=== PATIENT | male | born 1970 | race Caucasian/White ===

== ENCOUNTER 2019-10-27 19:34 | Inpatient (IN) ==
[2019-10-27] MEDS ORDERED: NS 1,000 ML IV PRN (19:52)
[2019-10-27 20:20] LABS: INR 1.11; PROTIME 14.5 Seconds (11.0-16.0)
[2019-10-27 20:21] LABS: PTT 24.8 Seconds (22.3-41.8)
--- NOTE | 2019-10-27 20:22 | Diag Imaging Result Doc PS360 ---
EXAM: CT HEAD W/O CONTRAST 10/27/2019 HISTORY: stroke like symptoms TECHNIQUE: This exam was performed using automated exposure control, adjustment of mA or kV according to patient size, and/or use of iterative reconstruction technique. COMMENT: There is no evidence of mass effect, bleed, or abnormal extra-axial fluid collection. The visualized paranasal sinuses are clear. The calvarium is intact. IMPRESSION: No evidence of acute disease. Electronically signed by Mauro Bashir 10/27/2019 8:20 PM
[2019-10-27] MEDS ORDERED: ZOSYN 3.375 GM in NS 50 ML IV ONE (20:24)
--- NOTE | 2019-10-27 20:24 | Diag Imaging Result Doc PS360 ---
EXAM: CHEST-PORTABLE 10/27/2019 HISTORY: stroke like symptoms, SOB, hypoxia TECHNIQUE: AP upright chest COMMENT: There is apparent pleural thickening bilaterally particularly in the apices and lateral chest with increased interstitial markings particularly in the lung bases. There are no previous radiographs available for comparison. The possibility of pulmonary fibrosis is suggested. Superimposed pneumonia or pulmonary edema cannot be excluded. IMPRESSION: Pulmonary and pleural fibrosis. Electronically signed by Mauro Bashir 10/27/2019 8:22 PM
[2019-10-27] MEDS ORDERED: ASPIRIN PO ONE (20:28)
[2019-10-27 20:32] LABS: AGAP 12; ALB/GLOB RATIO 0.7; ALBUMIN 3.4 g/dL (3.5-5.0); ALKALINE PHOSPHATASE 102 U/L (32-122); BUN 10 mg/dL (8-22); CALCIUM 8.9 mg/dL (8.8-10.2); CHLORIDE 100 mmol/L (98-107); COSMO 277; CREATININE 0.7 mg/dL (0.7-1.2); ESTIMATED GFR > 60; GLUCOSE 97 mg/dL (70-104); GOT 39 U/L (10-34); GPT 18 U/L (10-44); POTASSIUM 4.4 mmol/L (3.5-5.1); SODIUM 139 mmol/L (136-145); TCO2 27 mmol/L (25-35); TOTAL BILIRUBIN 0.48 mg/dL (0.20-1.00)
[2019-10-27 20:35] LABS: BASO# 0.16 X1000 (0.0-0.2); BASO% 1.8 % (0.0-0.8); EOS# 0.13 X1000 (0.0-0.7); EOS% 1.4 % (0.0-10.0); HEMATOCRIT 45.6 % (42.0-52.0); HEMOGLOBIN 15.2 g/dL (14.0-18.0); IMM GRAN# 0.19 X1000 (0.0-0.04); IMM GRAN% 2.1 % (0.0-0.5); LYMPH# 1.07 X1000 (1.2-3.4); LYMPH% 11.7 % (20.5-51.1); MCH 27.1 PG (27-31); MCHC 33.3 g/dL (33-37); MCV 81.3 FL (81-99); MONO# 0.86 X1000 (0.11-0.59); MONO% 9.4 % (1.7-9.3); MPV 9.4 FL (7.4-10.4); NEUT# 6.72 X1000 (1.4-6.5); NEUT% 73.6 % (42.2-75.2); PLT 217 X1000 (130-400); RBC 5.61 XMIL (4.7-6.1); RDW 13.1 % (11.5-14.5); WBC 9.13 X1000 (4.8-10.8)
--- NOTE | 2019-10-27 20:46 | PROVIDER DOCUMENTATION ---
This chart was entered by Alma Rosa Wilks Scribe, acting as scribe for Mika Fernandez MD. HPI-Neurological Disorder - General Stated Complaint: right arm weakness Time Seen by Provider: 10/27/19 19:40 Source: patient, EMS - History of Present Illness-Neuro Nature of Presenting Problem: Pt is a 49 yowm brought in by EMS with c/o of right arm weakness, slurred speech and right sided facial droop that happened 1 hour ago and symptoms were resolved on arrival in the ED. EMS also stated that pt's O2 on O2 rebreather at 15ml was 100% but when O2 was removed pt would desat to 80% in less than a minute. Pt st ates he had a recent dx of bronchitis and a round of antibiotics. Pt denies SOB, COPD, diabetes, and HTN. Pt is A&O x3 and nontoxic in appearance. Headache Location: denies: frontal, temporal, occipital, parietal, global, other Severity: reports: moderate Onset/Duration: reports: abrupt, 1 hour ago Timing: reports: resolved prior to arrival Context: reports: impaired speech, facial droop (right side), other (right arm weakness) Any recent trauma/injury?: reports: none Character of Deficits: reports: new weakness, altered sensation, impaired speech New weakness or altered sensation location:: reports: right facial Cognitive Baseline: alert, oriented x3 Gait Baseline: walks without assistance Associated Symptoms: reports: slurred speech. denies: short of breath, h eadache, decreased ability to walk or stand, dizziness, confusion, fever/chills, loss of consciousness, nausea, numbness in legs/feet, diaphoretic, seizures, vision changes Similar Symptoms Previously?: No Recently seen or treated by another doctor?: Yes (recent dx of bronchitis) Review of Systems - Adult - REVIEW OF SYSTEMS - ADULT Constitutional: denies: chills, fever Eyes: reports: no symptoms reported Ears, Nose, Mouth & Throat: reports: no symptoms reported Cardiovascular: denies: chest pain, syncope Respiratory: denies: cough, shortness of breath Gastrointestinal: denies: diarrhea, nausea, vomiting Genitourinary: reports: no symptoms reported Musculoskeletal: reports: muscle weakness (right arm) Integumentary: reports: no symptoms reported Neurological: reports: see HPI, slurred speech, other (right side facial dropp). denies: dizziness/vertigo, headache/migraines Psychiatric: reports: no symptoms reported Endocrine: reports: no symptoms reported Hematologic/Lymphatic: reports: no symptoms reported Allergic/Immunologic: reports: no symptoms reported All Other Systems: Reviewed and Negative Past History - Adult - PAST MEDICAL HISTORY-ADULT Review of Records: reports: Old Records Reviewed, Nursing Assessment Review, Medications Reviewed, Social history reviewed & non-contributory. Major Childhood Illnesses: reports: denies history Cardiovascular: reports: denies history Respiratory: reports: denies history Gastrointestinal: reports: denies history Genitourinary: reports: denies history Musculoskeletal: reports: denies history Neurological: reports: denies history Endocrine/Immune: reports: denies history Other Conditions: reports: denies history - IMMUNIZATION STATUS Childhood Immunizations: See Nurse Assessment Flu Vaccine: See Nurse Assessment - FAMILY HISTORY Family History: reviewed, not pertinent - SOCIAL HISTORY Living Situation: family Physical Exam- Neurological - Physical Exam-Neuro Initial Vital Signs Reviewed: Yes (Resp 25; O2 94, 4L) General Appearance: appears well, alert, thin Eye Exam: bilateral eye: normal inspection, PERRL, EOMI HENMT: normocephalic/atraumatic, moist mucous membranes, normal ENT inspection Head Injury: no evidence of injury Neck: non-tender, full range of motion, supple, normal inspection Respiratory: chest non-tender, lungs clear, normal breath sounds, no pleuratic chest pain, no respiratory distress, no accessory muscle use, other (Pt is maintaing 94% O2 with 4 L nasal canal.) Cardiovascular: normal peripheral pulses, no edema, no gallop, no JVD, no murmur Abdominal Exam: normal bowel sounds, non tender, soft, no organomegaly, no pulsatile mass Lymphatic: no adenopathy Extremity: normal range of motion, non-tender, normal inspection, no pedal edema , no calf tenderness, 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 Exam: normal hearing, normal speech, PERRL Motor/Sensory: no motor deficit, no sensory deficit, no pronator drift Neurologic: grossly normal Integumentary: normal color, normal turgor, warm/dry Psych/Mental Status: normal mood/affect, normal thought content, normal thought process, oriented x 3 - [place]ow Coma Scale Best Eye Response: (4) open spontaneously Best Verbal Response: (5) oriented Best Motor Response: (6) obeys commands Progress - PLAN OF CARE/RESULTS Progress/Plan/Lab Results: Vital Signs - 8 hr 10/27/19 19:49 Temperature 97.8 F Pulse Rate 83 Respiratory Rate 25 H Blood Pressure 122/80 O2 Sat by Pulse Oximetry 93 L Laboratory Results - last 24 hr 10/27/19 10/27/19 10/27/19 19:58 19:58 19:58 WBC 9.13 RBC 5.61 Hgb 15.2 Hct 45.6 MCV 81.3 MCH 27.1 MCHC 33.3 RDW Std Deviation 13.1 Plt Count 217 MPV 9.4 Immature Gran % (Auto) 2.1 H Neut % (Auto) 73.6 Lymph % (Auto) 11.7 L [place] % (Auto) 9.4 H Eos % (Auto) 1.4 Baso % (Auto) 1.8 H Immature Gran # (Auto) 0.19 H Neut # (Auto) 6.72 H Lymph # (Auto) 1.07 L [place] # (Auto) 0.86 H Eos # (Auto) 0.13 Baso # (Auto) 0.16 PT INR PTT (Actin FS) Sodium 139 Potassium 4.4 Chloride 100 Carbon Dioxide 27 Anion Gap 12 BUN 10 Creatinine 0.7 Estimated GFR/1.73 m2 > 60 BUN/Creatinine Ratio 14 Glucose 97 Calculated Osmolality 277 Calcium 8.9 Total Bilirubin 0.48 AST 39 H ALT 18 Alkaline Phosphatase 102 Creatine Kinase Troponin T High Sens 20 H Uzx-M-Jevumrrcywx Pept Total Protein 8.0 Albumin 3.4 L Globulin 4.6 Albumin/Globulin Ratio 0.7 10/27/19 10/27/19 10/27/19 19:58 19:58 19:58 WBC RBC Hgb Hct MCV MCH MCHC RDW Std Deviation Plt Count MPV Immature Gran % (Auto) Neut % (Auto) Lymph % (Auto) [place] % (Auto) Eos % (Auto) Baso % (Auto) Immature Gran # (Auto) Neut # (Auto) Lymph # (Auto) [place] # (Auto) Eos # (Auto) Baso # (Auto) PT 14.5 INR 1.11 PTT (Actin FS) 24.8 Sodium Potassium Chloride Carbon Dioxide Anion Gap BUN Creatinine Estimated GFR/1.73 m2 BUN/Creatinine Ratio Glucose Calculated Osmolality Calcium Total Bilirubin AST ALT Alkaline Phosphatase Creatine Kinase 100 Troponin T High Sens Ucx-X-Ozejwaxzriq Pept 215 H Total Protein Albumin Globulin Albumin/Globulin Ratio Orders Category Date Time Status Cardiac Monitoring DIRECTED Care 10/27/19 19:52 Active Finger Stick Blood Sugar (ED) DIRECTED Care 10/27/19 19:52 Active Misc. NRSG Communication Order DIRECTED Care 10/27/19 19:52 Active NEWS Score >or=5:Order NEWS Bundle S.O. NOW Care 10/27/19 20:21 Active Notify Provider of NEWS Score NOW Care 10/27/19 20:24 Active Oxygen Therapy- ED Nursing DIRECTED Care 10/27/19 19:52 Active Saline Loc NOW Care 10/27/19 19:52 Active CHEST-PORTABLE [RAD] Stat Exams 10/27/19 19:[address] HEAD W/O CONTRAST [CT] Stat Exams 10/27/19 20:05 Completed BLOOD CULTURE [BLDCUL] Stat Lab 10/27/19 21:20 Results BNP [PRO B-NATRIURETIC PEPTIDE] Stat Lab 10/27/19 19:58 Completed CBC WITH ELECTRONIC DIFF [HEME] Stat Lab 10/27/19 19:58 Completed CK PROFILE [SP CHEM] Stat Lab 10/27/19 19:58 Completed COMPREHENSIVE METABOLIC PANEL [CHEM] Stat Lab 10/27/19 19:58 Completed LACTATE, PLASMA [CHEM] Lab 10/27/19 20:36 Ordered LACTATE, PLASMA [CHEM] Lab 10/27/19 23:30 Uncollected LACTATE, PLASMA [CHEM] Lab 10/28/19 02:30 Uncollected PROTIME WITH INR [COAG] Stat Lab 10/27/19 19:58 Completed PTT [COAG] Stat Lab 10/27/19 19:58 Completed TROPONIN T HIGH SENSITIVITY Stat Lab 10/27/19 19:58 Completed URINALYSIS W/POSS RFLX CULT [URINALYSIS] Stat Lab 10/27/19 19:52 Uncollected URINE DRUG SCREEN Stat Lab 10/27/19 19:52 Uncollected 0.9% Sodium Chloride Inj [Ns] 1,000 ml Med 10/27/19 19:52 Active IV 125 mls/hr Aspirin Med 10/27/19 20:28 Discontinued 325 mg PO NOW ONE Piperacillin/Tazobactam [Zosyn] 3.375 gm Med 10/27/19 20:24 Discontinued 0.9% Sodium Chloride Inj [Ns] 50 ml IV NOW EKG [EKG] Stat Ther 10/27/19 19:52 Ordered Pt not given TPA due to symptoms resolving prior to coming to the ER. At recheck, pt is breathing well on 4L nc and sats of 97%. Result Diagrams: 10/27/19 19:58 10/27/19 19:58 - EKG 1 Time of EKG reading by physician:: 21:49 EKG Read and Signed by:: Mika Fernandez EKG Interpretation (*Must complete 3 of following elements*): Abnormal Rate: 77 Rhythm: NSR [place]: normal QRS: normal Comments: Left posterior fascicular block; Inferior infarct, age undetermined - XRAY 1 XRAY Study: Chest Impression: See EMR Report ([facility] - [address] [facility], [address] [place] [id number] [facility] - [address] [place] [address] Department of Imaging Patient: MELVIN LOCKHART Date: 10/27/19MR#: [id number] : 1970ADM Status: PRE ERAcct#: [id number] Age/Sex: 49/MRoom/Bed: Loc: ED Ordering Physician: Mika Barger MD Family Physician: Denice Otero MD Reason for Procedure: stroke like symptoms, SOB, hypoxia ___ Signed EXAM: CHEST-PORTABLE 10/27/2019 HISTORY: stroke like symptoms, SOB, hypoxia TECHNIQUE: AP upright chest COMMENT: There is apparent pleural thickening bilaterally particularly in the apices and lateral chest with increased interstitial markings particularly in the lung bases. There are no previous radiographs available for comparison. The possibility of pulmonary fibrosis is suggested. Superimposed pneumonia or pulmonary edema cannot be excluded. IMPRESSION: Pulmonary and pleural fibrosis. Electronically signed by Mauro Bashir 10/27/2019 8:22 PM 10/27/192021 Interpreting Physician: Mauro Bashir MD Dictated Date/Time: 10/27/192019 cc: Mika Fernandez MD; Denice Otero MD) - CT/MRI 1 CT Study: Head Impression: See EMR Report ([facility] - [address] , [address], [place] [address] [facility] - [address] [place] [address] Department of Imaging Patient: MELVIN LOCKHART Date: 10/27/19#: [id number] : 1970ADM Status: PRE ERAcct#: [id number] Age/Sex: 49/MRoom/Bed: Loc: ED Ordering Physician: Mika Fernandez MD Family Physician: Denice Otero MD Reason for Procedure: stroke like symptoms ___ Signed EXAM: CT HEAD W/O CONTRAST 10/27/2019 HISTORY: stroke like symptoms TECHNIQUE: This exam was performed using automated exposure control, adjustment of mA or kV according to patient size, and/or use of iterative reconstruction technique. COMMENT: There is no evidence of mass effect, bleed, or abnormal extra-axial fluid collection. The visualized paranasal sinuses are clear. The calvarium is intact. IMPRESSION: No evidence of acute disease. Electronically signed by Mauro Bashir 10/27/2019 8:20 PM 10/27/192019 Interpreting Physician: Mauro Bashir MD Dictated Date/Time: 10/27/192019 cc: Mika Fernandez MD; Denice Otero MD) - CONSULTS/PCP/HOSPITALIST Notification #1 *Consult/PCP/Hospitalist*: Dr Way Time Discussed: 20:44 Consult Disposition: Will see in ED, Admit Departure - Departure Date of Disposition Decision: 10/27/19 Time of Disposition Decision: 20:44 DIAGNOSIS: TIA (transient ischemic attack), Pneumonia, Hypoxia, Respiratory distress Disposition: ADMITTED INPATIENT 09 Certified Medical Emergency: Emergent Condition: Serious Referrals and Follow-Ups: Denice Otero MD [Primary Care Provider] - - Critical Care Note This patient required my direct & personal management of CC.: Yes Total Time (mins): 45 Critical Care Statement: This patient required my direct personal management to treat or rule out processes, the absence of which, could potentiallly result in sudden, clinically significant life or limb threatening deterioration. Attestation - Physician/ SANTI Attestation Patient care was provided by Advanced Practice Provider:: No The physician spent face to face time with patient:: Yes Advanced Practice Provider documentation review:: Supervising physician onsite and consulted in the evaluation and care of this patient. The physician did have a face to face encounter with the patient. - NIH Stroke Scale Level of Consciousness: 0-Alert LOC Questions (ask month and age): 0-Answers Both Correctly LOC Commands (ask to open & close eyes;make a fist, let go): 0-Obeys Both Correctly Best Gaze (horizontal eye movement): 0-Normal Visual (use finger movement, counting or visual threat): 0-No Visual Loss Facial Palsy (show teeth or raise eyebrows & close eyes tght: 0-Symmetrical Movement Motor Function-left arm: 0-Normal Motor Function-right arm: 0-Normal Motor Function-left le-Normal Motor Function-right le-Normal Limb Ataxia(wudnno-lrww-fllqad, or heel to rosen): 0-No Ataxia Sensory(pin prick to face,arms,trunk,legs-compare side/side): 0-No Ataxia Best Language(name item/read sentence.Ex-Down to Earth): 0-No Aphasia Dysarthria(Pt read words or say words Ex.Mama,Tip-Top,Thanks: 0-Normal Articulation Extinction and Inattention: 0-Normal Modified [place] Score Criteria: 0-no symptoms This chart was documented by the indicated scribe, (Alma Rosa Wilks, Scribe) and accurately reflects the services I performed and decisions made by me, Mika Fernandez MD, as attested by the provider's signature.
[2019-10-27] MEDS: NS 1,000 ML IV SCH (22:00)
[2019-10-27] MEDS ORDERED: DUONEB (A & A) INH PRN (22:05)
[2019-10-27] MEDS: LEVAQUIN 750 MG/D5W 750 MG/150 ML IVPB IV SCH (22:15)
[2019-10-27 22:54] LABS: URINE SOURCE CLEAN CATCH
[2019-10-27 23:00] LABS: BILIRUBIN URINE NEGATIVE (NEGATIVE); BLOOD URINE NEGATIVE (NEGATIVE); COLOR YELLOW; GLUCOSE URINE NEGATIVE (NEGATIVE); KETONE URINE TRACE mg/dL (NEGATIVE); LEUKOCYTES URINE NEGATIVE (NEGATIVE); NITRITE URINE NEGATIVE (NEGATIVE); PROTEIN URINE 50 mg/dL (NEGATIVE); SP GRAVITY URINE 1.031; TURBIDITY URINE CLEAR (CLEAR); UROBILINOGEN URINE NORMAL (NORMAL)
[2019-10-27 23:04] LABS: UR EPITHELIAL CELLS <10 /HPF (<10); URINE BACTERIA NEGATIVE /HPF; URINE RBC <10 /HPF (<10); URINE WBC <10 /HPF (<10)
[2019-10-27 23:11] LABS: UR AMPHETAMINES QUAL NONE DETECTED (NONE DETECT); UR BARBITUATES QUAL NONE DETECTED (NONE DETECT); UR BENZODIAZEPIN QUAL NONE DETECTED (NONE DETECT); UR CANNABINOIDS QUAL NONE DETECTED (NONE DETECT); UR COCAINE QUAL NONE DETECTED (NONE DETECT); UR METHADONE QUAL NONE DETECTED (NONE DETECT); UR OPIATES QUAL NONE DETECTED (NONE DETECT); UR OXYCODONE QUAL NONE DETECTED (NONE DETECT); UR PCP QUAL NONE DETECTED (NONE DETECT)
[2019-10-27 23:12] LABS: URINE CRYSTALS NONE SEEN
[2019-10-27] MEDS ORDERED: DUONEB (A & A) INH SCH (23:30)
[2019-10-27] MEDS ORDERED: VENTOLIN HFA INH PRN (23:41)
--- NOTE | 2019-10-28 00:13 | EKG Report ---
Test Performed on : 10/27/2019 9:29:41 PM Test Reason : Stroke like symptoms Blood Pressure : / mmHG Vent. Rate : 077 BPM Atrial Rate : 077 BPM P-R Int : 164 ms QRS Dur : 084 ms QT Int : 378 ms P-R-T Axes : 000 156 178 degrees QTc Int : 427 ms Normal sinus rhythm. Left posterior fascicular block Inferior infarct , age undetermined Abnormal ECG No previous ECGs available Unconfirmed Result
[2019-10-28] MEDS: NS 1,000 ML IV SCH ×2 (02:55→14:49)
--- NOTE | 2019-10-28 07:04 | HISTORY AND PHYSICAL ---
CHIEF COMPLAINT: Slurred speech as well as right upper extremity weakness noted prior to admission. HISTORY OF PRESENT ILLNESS: Mr. Milan Jaime is a 49-year-old male who does not have any significant past medical history. The patient presented to the hospital because of sudden onset of slurred speech, as well as weakness involving the right upper extremity, which was noted prior to admission. The patient denies any loss of consciousness, headaches, seizures, or visual blurring. The patient was also noted to be hypoxic prior to admission with an oxygen saturation low in the 70s. The patient required oxygen supplementation. The patient admits to having a cough as well as shortness of breath, which has been ongoing for about three weeks. He denies any hemoptysis. At the time of his presentation, the patient did have a CT scan of the head, which did not reveal any acute findings. An X-ray of his chest showed evidence of pulmonary as well as pleural fibrosis and superimposed pneumonia, although pulmonary edema could not be excluded. The patient has now been admitted to the floor for further management. PAST MEDICAL HISTORY: Unremarkable. SOCIAL HISTORY: No history of cigarette smoking, alcohol, or drug use. ALLERGIES: No known drug allergies. PAST SURGICAL HISTORY: The patient has had surgery to left elbow region. MEDICATIONS: None. FAMILY HISTORY: Unremarkable. REVIEW OF SYSTEMS: Constitutional: No fever. FABRICATOR SPECIAL ITEMS: No headache. Eyes: No blurred vision. ENT: No sinus pressure. Gastrointestinal: He has some diarrhea. Genitourinary: No dysuria. Dermatology: No skin lesions. Hematology: No bleeding problems. Musculoskeletal: No joint pain. Endocrinology: No diabetes or thyroid disease. Psychiatry: No anxiety or depression. Allergy/Immunology: He has symptoms of allergic rhinitis which is seasonal. PHYSICAL EXAMINATION: VITAL SIGNS: Temperature 97.8 degrees, pulse 83, respiratory rate 25, blood pressure 122/80, oxygen saturation is 93%. HEENT: Atraumatic and normocephalic. Anicteric. Extraocular movements intact. No oral lesions noted. NECK: No lymphadenopathy or thyromegaly. CARDIOVASCULAR: S1, S2. RESPIRATORY: Evidence of good entry bilaterally. ABDOMEN: Soft, nontender. No masses felt. EXTREMITIES: No evidence of edema. CENTRAL NERVOUS SYSTEM: The patient is awake, alert, well oriented. Speech is normal. No obvious focal deficits are noted. LABORATORY DATA: WBCs 9.13, hematocrit 45.6, platelet count 217,000, INR 1.11, sodium 139, potassium 4.4, chloride 100, bicarb 27, BUN 10, creatinine 0.7, and AST 39. Troponin 20. ProBNP 215. Urine drug screen is negative. IMAGING STUDIES: Head CT: No evidence of acute changes. Chest x-ray: Shows evidence of pulmonary as well as pleural fibrosis. EKG: Shows a normal sinus rhythm with left posterior fascicular block and inferior infarct, age undetermined. ASSESSMENT AND PLAN: 1. Transient ischemic attack. We will maintain the patient on antiplatelet agent. Recommend MRI as well as MRA of the head, MRA of the neck, and 2D echo of the heart. I recommend PT, OT, speech therapy as well as a swallow evaluation. Check lipid panel as well as hemoglobin A1c level. Start patient on statin, atorvastatin 80 mg p.o. once a day. Recommend stroke education. Maintain patient on telemetry. Maintain patient on Lovenox for DVT prophylaxis. 2. Acute respiratory failure related to pulmonary as well as a pleural fibrosis. Superimposed pneumonia cannot be ruled out. Maintain patient on oxygen supplementation. Obtain sputum culture. Start patient on empiric antibiotics for pneumonia (community-acquired pneumonia). Get a pulmonology consult. 3. Coronavirus Disease 2019. The patient is under investigation. Follow-up COVID-19 test results. 4. Elevated troponin. Maintain patient on telemetry. Follow-up serial cardiac enzymes. 5. Elevated pro-B-type natriuretic peptide level. Check 2D echo of the heart. 6. Abnormal liver function tests. Check hepatitis panel as well as abdominal ultrasound. 7. Deep vein thrombosis prophylaxis with Lovenox. 8. Gastrointestinal prophylaxis with proton pump inhibitor. cc: Ryne Potts MD
[2019-10-28] MEDS ORDERED: LIPITOR PO SCH (09:00)
--- NOTE | 2019-10-28 09:18 | Diag Imaging Result Doc PS360 ---
EXAM: MRA BRAIN W/O CONTRAST HISTORY: tia TECHNIQUE: MR angiography of the brain. MIP images obtained. COMPARISON: None. FINDINGS: Normal flow in each distal internal carotid artery. Normal flow in the basilar artery. Normal flow in the anterior, middle, and posterior cerebral arteries. There is a right-sided posterior communicating artery. No occlusion or stenosis. No aneurysm identified. IMPRESSION: No abnormality. Electronically signed by Adelfo Roldan 10/28/2019 9:16 AM
--- NOTE | 2019-10-28 09:24 | Diag Imaging Result Doc PS360 ---
EXAM: MRI BRAIN W/O CONTRAST HISTORY: tia TECHNIQUE: MRI brain without contrast. Axial, sagittal, and coronal images obtained in multiple sequences. COMPARISON: None. FINDINGS: No recent infarct. No mass or midline shift. No hydrocephalus. No epidural or subdural fluid collection. Normal orbits. No sinus opacification. IMPRESSION: No recent infarct or microvascular ischemic changes. Electronically signed by Adelfo Roldan 10/28/2019 9:22 AM
--- NOTE | 2019-10-28 09:31 | Diag Imaging Result Doc PS360 ---
EXAM: MRA NECK W/O CONT HISTORY: tia TECHNIQUE: MR angiography of the neck. MIP images obtained. COMPARISON: None. FINDINGS: Normal flow within each common carotid artery. Normal flow within each internal carotid artery. Normal flow in the vertebral arteries. The left is larger than the right. IMPRESSION: No occlusion or stenosis. Electronically signed by Adelfo Roldan 10/28/2019 9:28 AM
--- NOTE | 2019-10-28 09:43 | Diag Imaging Result Doc PS360 ---
EXAM: US ABDOMEN-COMPLETE INDICATION: abn lfts COMPARISON: None. FINDINGS: The gallbladder appears normal with no stones, wall thickening, or pericholecystic fluid. The common bile duct is normal in diameter. Sonographic Chance's sign was reported to be negative. The liver is grossly normal in echotexture with no discrete hepatic mass identified. Portal venous flow is hepatopetal. The visualized pancreas is unremarkable. The aorta and IVC are grossly unremarkable. The spleen is unremarkable. The kidneys are grossly unremarkable. IMPRESSION: Essentially unremarkable abdominal ultrasound. Electronically signed by Derik Tim 10/28/2019 9:41 AM
[2019-10-28] MEDS ORDERED: NS 250 ML ONE (09:44)
--- NOTE | 2019-10-28 10:46 | Diag Imaging Result Doc PS360 ---
CT ANGIOGRM PULMONARY ARTERIES - 10/28/2019 INDICATION: elevated d-dimer TECHNIQUE: Axial CT images were obtained after administering intravenous contrast. Coronal MIP images were generated. COMPARISON: None FINDINGS: There is no adenopathy. There is no pulmonary embolism. There is cardiomegaly. There is advanced pulmonary fibrosis. There are multifocal patchy interstitial, groundglass infiltrates throughout the left lung diffusely. Airways are clear. Upper abdominal images are normal. There are moderate degenerative changes of the spine. No acute or suspicious bony lesion. IMPRESSION: 1. Negative for pulmonary embolism. 2. Advanced pulmonary fibrosis. 3. Significant interstitial infiltrate throughout the left lung. This is indeterminate. This could represent inflammatory interstitial lung disease, or viral infection. This exam was performed using automated exposure control, adjustment of mA or kV according to patient size, and/or use of iterative reconstruction technique Electronically signed by Anjum Lake 10/28/2019 10:44 AM
[2019-10-28] MEDS: PRILOSEC PO SCH (14:18)
[2019-10-28] MEDS: LOVENOX SUBQ SCH (14:18)
[2019-10-28] MEDS: ASPIRIN PO SCH (14:18)
[2019-10-28] MEDS: LIPITOR PO SCH (14:18)
--- NOTE | 2019-10-28 14:21 | PULMONOLOGY CONSULTATION ---
DATE: 10/28/2019 REQUESTING PROVIDER: Dr. Ryne Potts. REASON FOR CONSULTATION: Pulmonary and pleural fibrosis. HISTORY OF PRESENT ILLNESS: This is a 49-year-old, male with no significant medical history. He presented to the ER last night via EMS with sudden onset of right arm weakness, slurred speech, and right-sided facial droop, which apparently were resolved after patient arrived to the ER. However, on the way to the ER, the patient was found desaturated. He was put on non- rebreather 100%. And once the mask was removed, the patient desaturated at 80%. Initial chest x-ray showed pulmonary and pleural fibrosis with possible superimposed pneumonia or pulmonary edema. Initial blood work showed elevated D-dimer, so a CT angiogram pulmonary arterials was performed, which revealed negative for pulmonary embolism with advanced pulmonary fibrosis and significant interstitial infiltrate throughout the left lung, which is in indeterminant and could represent inflammatory interstitial lung disease or viral infection. The patient has been admitted to the medical floor with antibiotic Levaquin started since admission, and COVID-19 was tested. The patient currently is lying in bed with no acute distress noted. He is on nasal cannula at 4 L, and tolerates well. He does have some dry cough occasionally during my encounter. He complains of shortness of breath with activities for a few weeks, which was worse last week and actually improved some this week. He reports nonsignificant cough. He has no chest pain, wheezing, palpitations, nausea, fever, chills, bowel habit change, urination discomfort, pedal edema, orthopnea, or paroxysmal nocturnal dyspnea. He denies any sick contact recently as he has been off work for 2 weeks. He states he has been diagnosed with bronchitis recently, and was treated with a round of antibiotic. PAST MEDICAL HISTORY: Recent bronchitis treated with a round of antibiotics, otherwise nonsignificant. SOCIAL HISTORY: The patient quit smoking 9 years ago. He used to smoke 1 pack per day for over 20 years. He has no history of alcohol or illicit drug use. He works for [employer], and has been off 2 weeks since the COVID-19 pandemic. He denies any history of chemical or chronic dust exposure. FAMILY HISTORY: The patient's mother was diagnosed with pulmonary cystic fibrosis in 2006. Later, she underwent lung transplant in [place] and 2 weeks later she from complications. Her sister was genetically tested negative before, but he is never tested. ALLERGIES: No known drug allergies. REVIEW OF SYSTEMS: A 10-point review of systems was conducted, and the pertinent is listed within the HPI. Otherwise, noncontributory. PHYSICAL EXAMINATION: Vital Signs: Temperature 97.8 degrees, blood pressure 111/67, pulse 72, respiratory rate 24, and oxygen saturation 93% on nasal cannula at 4 L. General: Pleasant and cooperative, chronically ill appearing lying in bed with mild tachypnea but, no increased work of breathing. The patient has some mild dry cough occasionally during my encounter. HEENT: Atraumatic, normocephalic. Trachea midline. Mucosa pink and moist. Oropharyngeal clear. Pupils equal, round, and reactive to light. Respiratory: Mild tachypnea. No increased work of breathing or accessory muscle use noted. Symmetrical excursion. Auscultation revealed mild inspiratory crackles bilaterally, worse in the right upper lobe with crepitus palpitated on the right upper lobe. Cardiovascular: Regular rate and rhythm with S1, S2 appreciated. Gastrointestinal: Soft, nontender, and nondistended. Normoactive bowel sounds in all 4 quadrants. Extremities: No pedal edema. No cyanosis. No clubbing. Dorsalis pedis 2+ bilaterally. Neurologic: Alert and oriented x3. Speech fluent. Follows commands. No facial droop noted. No extremity weakness noted. LABORATORY DATA: Troponin T high sensitivity 20, creatine kinase 87, and plasma lactate 1.3. IMAGING DATA: See HPI for CT angiogram, pulmonary arterials. ASSESSMENT: This is a 49-year-old male with a recently diagnosed bronchitis. He has been admitted to the medical floor since yesterday with transient ischemic attack, acute respiratory failure related to pulmonary and pleural fibrosis. 1. Acute respiratory fibrosis, improving. The patient initially required a non- rebreather 100%, and currently he is on nasal cannula at 4 L with oxygen saturation in the low 90s. 2. Advanced pulmonary fibrosis with significant interstitial infiltrates throughout the left lung, which could represent inflammatory interstitial lung disease or viral infection. COVID- 19 has been tested, and the results are pending. Empiric antibiotic Levaquin has been started since admission. The patient does have a family history of pulmonary cystic fibrosis from his mother's side. 3. Transient ischemic attack. The patient initially presented with right upper extremity weakness, slurred speech, and right-sided facial droop, which apparently have been resolved after the patient arrived to the ER. PLAN: 1. Continue supplemental oxygen as needed. We will follow up ABG tomorrow. 2. Antibiotic Levaquin has been started. We will follow up with the results of sputum culture and COVID-19. Blood culture has been started yesterday, but so far nothing grows. 3. Ventolin has been initiated. The patient was initially put on DuoNeb by considering of suspected COVID-19, DuoNeb has been discontinued since last night. 4. Continue GI prophylaxis with Prilosec and DVT prophylaxis with Lovenox. 5. We are ordering genetic test for cystic fibrosis at this time. 6. Further recommendations pending hospital course. Thank you for the courtesy of this consult. Dr. Mosquera did the examination, evaluation, management, and orders. DENISA did the dictation for Dr. Mosquera according to his direction. Dictated by DENISA Gamble for Horacio Mosquera MD cc: DENISA Gamble MD [facility]
--- NOTE | 2019-10-28 16:22 | Extremity Venous Study ---
PROCEDURE NAME: Venous U/S Bilateral Legs - 10/28/2019 REQUESTING PHYSICIAN: Dr. Potts READING PHYSICIAN: Hayder Oneal MD RIBBING MACHINE OPERATOR: Lázaro INDICATION: Elevated D-dimer. FINDINGS: The deep and superficial veins were imaged in both lower extremities. They are compressible, patent and without thrombus. INTERPRETATION: No DVT or SVT in either lower extremity. cc: MD Ryne Nuñez MD
--- NOTE | 2019-10-28 19:58 | PROGRESS NOTE ---
DATE: 10/28/2019 INTERVAL HISTORY: No acute events overnight. SUBJECTIVE: Mr. Jaime is feeling significantly better, denies any more weakness. His swallowing has significantly improved. He denies known history of diagnosed with cystic fibrosis but family history mother is positive for cystic fibrosis. VITALS: Temperature 97.5 degrees, pulse 70, respiratory 20, blood pressure 117/74 saturating 96% 2 L nasal cannula. PHYSICAL EXAMINATION: Not in acute distress, oral cavity is moist. He has decreased air entry with inspiratory crackles infrascapular region. S1, S2 normal, no murmur, gallop.Abdomen: Soft, nontender. No lower extremity edema. He is alert, oriented x3. No obvious facial droop. Pupils are bilaterally equal reacting to light. Extraocular movements is intact. No facial droop. Shoulder shrug is normal. Sensation bilateral face, upper and lower extremity normal. Power is 5 in 5 bilateral upper and lower extremity. Shoulder shrug is normal. LABS: Suggestive of troponin showing flat trend. Brain MRI had no recent infarct. Brain MRA did not have any stenosis. Pulmonary arteriogram did not have any pulmonary embolism. Extremity venous study did not have any DVT. ASSESSMENT AND PLAN: 1. Acute hypoxic respiratory failure due to predominantly left lung multifocal pneumonia. 2. 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 3. Suspicion of multifocal left lower lung pneumonia versus Coronavirus Disease 2019. 4. Transient ischemic attack . PLAN: 1. Continue aspirin, atorvastatin and intravenous levofloxacin. 2. Continue oxygen to maintain saturation more than 94%. Follow COVID-19 testing. 3. Appreciate Pulmonology recommendation. Plan of care discussed with patient, his questions been answered. cc: Howard Schulte MD
[2019-10-28] MEDS: LEVAQUIN 750 MG/D5W 750 MG/150 ML IVPB IV SCH (22:45)
--- NOTE | 2019-10-29 00:20 | ECHO REPORT ---
ORDER DATE: 10/28/2019 MEASUREMENTS: 1. Septal thickness 0.9 2. Left ventricular internal diameter in diastole 4.8 3. Posterior wall thickness 0.7 4. Left ventricular internal diameter in systole 3.1 5. Aortic root 3.2 6. Left atrium 3.4. SUMMARY: 1. Fair quality study. 2. Aortic valve is trileaflet and opens normally on 2-dimensional images. Mitral, tricuspid, and pulmonic valves are without evidence of structural abnormality with very mild mitral regurgitation, very mild tricuspid regurgitation, and trace pulmonic insufficiency. The estimated systolic PA pressure by Doppler is 45 mmHg, suggesting mild pulmonary hypertension. Aortic root is normal in size. 3. Normal left ventricular dimensions demonstrated. The estimated left ejection fraction appears to be at least 55%. No regional wall motion abnormality is evident. Left atrium, right atrium, right ventricle are normal in size with grossly preserved right ventricular systolic function. 4. No pericardial effusion. 5. Inferior vena cava not well demonstrated with subcostal views technically difficult. CONCLUSIONS: 1. Very mild mitral regurgitation. 2. Very mild tricuspid regurgitation with mild pulmonary hypertension by Doppler. 3. Estimated left ventricular ejection fraction at least 55%. 4. If clinically indicated, consider intravenous agitated saline contrast study to screen for [id number] intracardiac shunting in this 49-year-old patient with suspected transient ischemic attack. cc: MD Ryne Palacios MD
[2019-10-29] MEDS: PRILOSEC PO SCH ×2 (05:57→06:22)
[2019-10-29 06:06] LABS: ALLEN TEST YES; BE 0.5 mmoll (-3.0-3.0); BLOOD TYPE ARTERIAL; HCO3-(ACT) 25.2 mmoll (20.0-26.0); METHB 1.2 % (0.0-1.5); O2(CT) 19.3 mL/dL (15.0-23.0); O2HB 93.3 % (95.0-99.0); PCO2(98.6) 37 mmHg (35-45); PO2(98.6) 71 mmHg (60-100); SAMPLE BLOOD; THB 14.7 g/dL (11.5-17.4); pH(98.6) 7.43 (7.35-7.45)
[2019-10-29 06:07] LABS: MODALITY CANNULA
[2019-10-29 06:52] LABS: HEMOGLOBIN A1C 5.7 % (4.8-6.0)
[2019-10-29] MEDS: LOVENOX SUBQ SCH (12:14)
[2019-10-29] MEDS: LIPITOR PO SCH (12:14)
[2019-10-29] MEDS: ASPIRIN PO SCH (12:16)
[2019-10-29] MEDS ORDERED: DUONEB (A & A) INH PRN (17:32)
--- NOTE | 2019-10-29 18:11 | PROVIDER PROGRESS NOTE ---
Progress Note Dr. Mosquera Progress Note/Pulmonary and or critical care Subjective: The patient is lying in bed on NC 3L. He states he is feeling some better. He still has SOB with activities. Objective: Vital Signs: T 97.8 (no fever in last 24 hours), DE 70, RR 24, BP 114/72 and SaO2 92% on NC 3L. Physical Examination: General: Pleasant and cooperative. Chronically ill appearing. Lying in bed with no acute distress noted. HEENT: Normocephalic. Atraumatic. Trachea midline. Mucosa pink and moist. Oropharynx clear. PERRL. Chest: Mild tachypnea. No increased work of breathing or accessory muscle use noted. Symmetrical excursion. Auscultation reveals inspiratory crackles bibasilarly. CVS: S1 and S2 appreciated. Abdomen: Soft. Non-tender. Non-distended. Bowel sounds present in all 4 quadrants. Extremities: No pedal edema. No cyanosis. No clubbing. Neuro: Alert and oriented x 3. Answer simple questions. Follow simple commands. Labs and Radiology: Laboratory Results 10/28/19 10/28/19 10/28/19 01:32 22:40 22:40 Specimen Type Sample Site pH pCO2 pO2 HCO3 Base Excess Oxyhemoglobin ABG O2 Sat (Calculated) ABG O2 Saturation ABG Carboxyhemoglobin ABG Methemoglobin Jhonathan Test A-a O2 Difference Total Hemoglobin Lactate Liter Flow Blood Gas Modality FiO2 % Estimat Average Glucose Hemoglobin A1c Creatine Kinase 74 Troponin T High Sens 20 H Triglycerides Cholesterol LDL Cholesterol Direct VLDL Cholesterol, Calc HDL Cholesterol Coronary Risk Interp Coronavirus (PCR) SEE COMMENTS 10/29/19 10/29/19 10/29/19 05:50 06:15 06:15 Specimen Type ARTERIAL Sample Site R RADIAL pH 7.43 pCO2 37 pO2 71 HCO3 25.2 Base Excess 0.5 Oxyhemoglobin 93.3 L ABG O2 Sat (Calculated) 19.3 ABG O2 Saturation 96.0 ABG Carboxyhemoglobin 1.60 ABG Methemoglobin 1.2 Jhonathan Test YES A-a O2 Difference 111.0 Total Hemoglobin 14.7 Lactate 0.80 Liter Flow 3.0 Blood Gas Modality CANNULA FiO2 % 32.0 Estimat Average Glucose 117 Hemoglobin A1c 5.7 Creatine Kinase Troponin T High Sens Triglycerides 76 Cholesterol 96 LDL Cholesterol Direct 53 VLDL Cholesterol, Calc 15 HDL Cholesterol 37 Coronary Risk Interp 3.00 Coronavirus (PCR) Assessment: Acute respiratory failure. Improving. ABG on NC 3L is nonsignificant this morning with pO2 71. Advanced pulmonary fibrosis with significant interstitial infiltrates throughout the left lung, which could represent inflammatory interstitial lung disease or viral infection. COVID-19 test on 10/28/19 is negative. The patient does have a family history of pulmonary fibrosis from his mothers side. The cystic fibrosis mutation panel has been ordered. Transient ischemic attack. Plan: Continue supplemental oxygen as needed with weaning as tolerated. Continue antibiotic Levaquin. We will follow up CBC and CMP tomorrow. Continue bronchodilators. As COVID-19 is negative, we are switching Ventolin to DuoNeb q4h. We will follow up the results of the cystic fibrosis mutation panel. Continue GI and DVT prophylaxis. I discussed patient's condition and care plan with patient's sister on phone. All questions have been answered.
--- NOTE | 2019-10-29 18:21 | PROGRESS NOTE ---
DATE: 10/29/2019 INTERVAL HISTORY: No acute events overnight. Mr. Jaime continued to need oxygen. SUBJECTIVE: He is feeling better. However, he does complain of shortness of breath on minimal physical exertion. I also talked with his sister on the phone. We discussed about his pending COVID results. We discussed about his pneumonia. We also discussed about pulmonary fibrosis with some cysts. I was informed that his mother had pulmonary fibrosis, though it was not cystic fibrosis. VITALS: Currently temperature 97.4 degrees, pulse 78, respiratory rate 22, blood pressure acceptable, saturating 93% on 3 L nasal cannula. PHYSICAL EXAMINATION: Mr. Jaime does not appear in acute distress. Oral cavity is moist. He has diffuse crackles on both lung dietz, more coarse on the right side than on the left side. No wheezes or rhonchi. S1, S2 normal. No murmur, rub, or gallop. Abdomen is soft, nontender. No lower extremity edema. He was able to raise both upper and lower extremities above ground level. He is alert and oriented x3. LABS: No CBC today. ABG is suggestive of PO2 of 71 on 3 L nasal cannula. His lipid panel had LDL of 53 and cholesterol of 196. [place] virus screen just came back which is negative. No positive microbiological data. Flu swab has been ordered. Extremity venous study did not have any DVT. ASSESSMENT AND PLAN: 1. Acute hypoxic respiratory failure due to left lung multifocal pneumonia. Continue intravenous levofloxacin. He has not been able to make sputum. I will also get influenza screen. Once influenza screen is negative, only after that I would consider taking him off isolation precautions. 2. Diffuse lung fibrosis. Cystic fibrosis testing has been sent out. He had about a 20 pack- year smoking history and his mother had pulmonary fibrosis. He would likely need prolonged outpatient management and diagnostic workup. 3. Transient ischemic attack on presentation, now resolved. Brain MRI and MRA did not have any acute cerebrovascular accident. He currently has a nonfocal examination. I will keep him on aspirin and atorvastatin. DISPOSITION: I am awaiting resolution of his pneumonia or at least improvement, and I will consider following up with x-ray of his chest tomorrow. X-ray of chest in future to see his progression. Plan of care discussed with him. I also had a detailed discussion about his medical condition with his sister on the phone. I allowed her to ask questions. All of her questions have been answered. cc: Howard Schulte MD MTDD
[2019-10-29] MEDS: DUONEB (A & A) INH SCH (20:15)
[2019-10-29] MEDS: LEVAQUIN 750 MG/D5W 750 MG/150 ML IVPB IV SCH (22:45)
[2019-10-30] MEDS: DUONEB (A & A) INH SCH ×6 (05:35→23:20)
[2019-10-30] MEDS: PRILOSEC PO SCH (06:50)
[2019-10-30 07:45] LABS: BASO# 0.09 X1000 (0.0-0.2); BASO% 0.9 % (0.0-0.8); EOS# 0.42 X1000 (0.0-0.7); EOS% 4.2 % (0.0-10.0); HEMATOCRIT 43.9 % (42.0-52.0); HEMOGLOBIN 14.4 g/dL (14.0-18.0); IMM GRAN# 0.18 X1000 (0.0-0.04); IMM GRAN% 1.8 % (0.0-0.5); LYMPH# 1.24 X1000 (1.2-3.4); LYMPH% 12.4 % (20.5-51.1); MCHC 32.8 g/dL (33-37); MCV 82.2 FL (81-99); MONO# 0.95 X1000 (0.11-0.59); MONO% 9.5 % (1.7-9.3); MPV 9.2 FL (7.4-10.4); NEUT# 7.16 X1000 (1.4-6.5); NEUT% 71.2 % (42.2-75.2); PLT 237 X1000 (130-400); RBC 5.34 XMIL (4.7-6.1); WBC 10.04 X1000 (4.8-10.8)
[2019-10-30 08:14] LABS: AGAP 12; ALB/GLOB RATIO 0.6; ALKALINE PHOSPHATASE 92 U/L (32-122); BUN 8 mg/dL (8-22); CALCIUM 9.5 mg/dL (8.8-10.2); CHLORIDE 101 mmol/L (98-107); COSMO 273; CREATININE 0.7 mg/dL (0.7-1.2); ESTIMATED GFR > 60; GLUCOSE 88 mg/dL (70-104); GOT 32 U/L (10-34); GPT 18 U/L (10-44); POTASSIUM 4.4 mmol/L (3.5-5.1); SODIUM 138 mmol/L (136-145); TCO2 25 mmol/L (25-35); TOTAL PROTEIN 8.4 g/dL (6.3-8.3)
[2019-10-30] MEDS: LOVENOX SUBQ SCH (09:17)
[2019-10-30] MEDS: LIPITOR PO SCH (09:17)
[2019-10-30] MEDS: ASPIRIN PO SCH (09:17)
--- NOTE | 2019-10-30 09:44 | Diag Imaging Result Doc PS360 ---
EXAM: CHEST-1 VIEW HISTORY: fibrosis with possible pneumonia TECHNIQUE: Single view COMPARISON: 10/27/2019 FINDINGS: Poor inspiratory effort. There are increased interstitial markings in the lungs. These are more prominent than on the prior study. Questionable tiny effusions. IMPRESSION: Fibrosis with infiltrates. Interval worsening. Electronically signed by Adelfo Roldan 10/30/2019 9:42 AM
[2019-10-30 13:31] LABS: HEPATITIS PROFILE ACUTE SEE COMMENTS
--- NOTE | 2019-10-30 17:36 | PROVIDER PROGRESS NOTE ---
Progress Note Dr. Mosquera Progress Note/Pulmonary and or critical care Subjective: The patient is lying in bed on NC 3L. He states he is feeling better and the nebulizer does help hisbreathing some. He still has SOB when he gets out of the bed. He still has occasional dry cough. Objective: Vital Signs: T 97.9 (no fever in last 24 hours), HI 67, RR 17, BP 119/75 and SaO2 97% on NC 3L. Physical Examination: General: Pleasant and cooperative. Chronically ill appearing. Lying in bed with no acute distress noted. HEENT: Normocephalic. Atraumatic. Trachea midline. Mucosa pink and moist. Oropharynx clear. PERRL. Chest: Even and unlabored. No increased work of breathing or accessory muscle use noted. Symmetrical excursion. Auscultation reveals dry inspiratory crackles bilaterally anteriorly and posteriorly. CVS: S1 and S2 appreciated. Abdomen: Soft. Non-tender. Non-distended. Bowel sounds present in all 4 quadrants. Extremities: No pedal edema. No cyanosis. Clubbing noted. Neuro: Alert and oriented x 3. Answer simple questions. Follow simple commands. Labs and Radiology: Laboratory Results 10/29/19 10/30/19 10/30/19 06:15 07:15 07:15 WBC 10.04 RBC 5.34 Hgb 14.4 Hct 43.9 MCV 82.2 MCH 27.0 MCHC 32.8 L RDW Std Deviation 13.0 Plt Count 237 MPV 9.2 Immature Gran % (Auto) 1.8 H Neut % (Auto) 71.2 Lymph % (Auto) 12.4 L [place] % (Auto) 9.5 H Eos % (Auto) 4.2 Baso % (Auto) 0.9 H Immature Gran # (Auto) 0.18 H Neut # (Auto) 7.16 H Lymph # (Auto) 1.24 [place] # (Auto) 0.95 H Eos # (Auto) 0.42 Baso # (Auto) 0.09 Sodium 138 Potassium 4.4 Chloride 101 Carbon Dioxide 25 Anion Gap 12 BUN 8 Creatinine 0.7 Estimated GFR/1.73 m2 > 60 BUN/Creatinine Ratio 11 Glucose 88 Calculated Osmolality 273 Calcium 9.5 Total Bilirubin 0.60 AST 32 ALT 18 Alkaline Phosphatase 92 Total Protein 8.4 H Albumin 3.0 L Globulin 5.4 Albumin/Globulin Ratio 0.6 Hepatitis Panel SEE COMMENTS Assessment: Acute respiratory failure. Improving slowly. Advanced pulmonary fibrosis with significant interstitial infiltrates throughout the left lung, which could represent inflammatory interstitial lung disease or viral infection per CTPA on 10/28/19. COVID-19 test on 10/28/19 is negative. The patient actually has a family history of pulmonary fibrosis, but not cystic fibrosis from his mothers side. The cystic fibrosis mutation panel has been ordered. CXR this morning shows fibrosis with infiltrates with interval wo rsening. Transient ischemic attack. Plan: Continue supplemental oxygen as needed with weaning as tolerated. Continue antibiotic Levaquin. Continue bronchodilators. We will follow up the results of the cystic fibrosis mutation panel. Continue GI and DVT prophylaxis. We start incentive spirometer and encourage patient to use it routinely. We encourage patient to start ambulation as tolerated.
[2019-10-30] MEDS ORDERED: LASIX IV ONE (20:26)
--- NOTE | 2019-10-30 20:45 | PROGRESS NOTE ---
DATE: 10/30/2019 INTERVAL HISTORY: No acute events overnight. Mr. Jaime's COVID-19 test returned negative. SUBJECTIVE: Mr. Jaime denies any complaint. He does get short of breath on physical exertion. He denies any chest pain. He is not coughing a lot. OBJECTIVE: Vital signs: Temperature 97.9 degrees, pulse 99, respiratory rate 18, blood pressure 110/70, saturating 95% on 3 L nasal cannula. On physical examination he is not in acute distress, though appears short of breath. Oral cavity is moist. He has inspiratory coarse Velcro crackles, bilateral infrascapular region. S1, S2 normal, tachycardic. No murmur or gallop. Abdomen is soft, nontender. No lower extremity edema. He is alert and oriented x3. Input and output suggests -500 mL today. LABORATORY DATA: Labs suggestive of WBC 10,000, hemoglobin 14.4. His electrolytes are normal. No positive microbiological data. Influenza screen was negative. DIAGNOSTIC DATA: Chest x-ray this morning suggests fibrosis with infiltrate and interval worsening. ASSESSMENT AND PLAN: 1. Acute hypoxic respiratory failure due to left lung multifocal pneumonia. Continue intravenous levofloxacin. His COVID-19 influenza screen has been negative. 2. Diffuse lung fibrosis, pending cystic fibrosis testing. He had [id number] smoking history in the past and mother had pulmonary fibrosis. 3. Transient ischemic attack on presentation, now resolved. Brain MRI, MRA, echocardiogram, and neck MRA was largely unremarkable. 4. Disposition: We will continue to monitor the patient inside the hospital. I will give him a dose of Lasix to see if that helps with his shortness of breath. I will follow up serial CBC and BMP. Appreciate pulmonology team's recommendation. Plan of care discussed with him. His questions been answered. cc: Howard Schulte MD
[2019-10-30] MEDS: LEVAQUIN 750 MG/D5W 750 MG/150 ML IVPB IV SCH (23:00)
[2019-10-31] MEDS: PRILOSEC PO SCH (06:36)
[2019-10-31 07:08] LABS: BASO# 0.12 X1000 (0.0-0.2); BASO% 1.1 % (0.0-0.8); EOS# 0.47 X1000 (0.0-0.7); EOS% 4.3 % (0.0-10.0); HEMATOCRIT 44.5 % (42.0-52.0); HEMOGLOBIN 14.6 g/dL (14.0-18.0); IMM GRAN# 0.23 X1000 (0.0-0.04); IMM GRAN% 2.1 % (0.0-0.5); LYMPH# 1.32 X1000 (1.2-3.4); MCH 26.8 PG (27-31); MCHC 32.8 g/dL (33-37); MCV 81.7 FL (81-99); MONO# 1.15 X1000 (0.11-0.59); MONO% 10.4 % (1.7-9.3); MPV 9.1 FL (7.4-10.4); NEUT# 7.72 X1000 (1.4-6.5); NEUT% 70.1 % (42.2-75.2); PLT 269 X1000 (130-400); RBC 5.45 XMIL (4.7-6.1); WBC 11.01 X1000 (4.8-10.8)
[2019-10-31] MEDS: DUONEB (A & A) INH SCH ×4 (07:47→20:13)
[2019-10-31] MEDS: LIPITOR PO SCH (09:13)
[2019-10-31] MEDS: ASPIRIN PO SCH (09:13)
[2019-10-31] MEDS: LOVENOX SUBQ SCH (09:13)
[2019-10-31] MEDS ORDERED: VANCOMYCIN IV PER PHARMACY MISC SCH (12:45)
--- NOTE | 2019-10-31 13:26 | PROGRESS NOTE ---
DATE: 10/31/2019 INTERVAL HISTORY: He was given intravenous Lasix and he made significant amount of urine. SUBJECTIVE: He is feeling the same at rest. He is feeling better, but on physical exertion, like going to the bathroom, he started becoming short of breath. We discussed about adding a 2nd antibiotic. We discussed about following up with chest x-ray. We also discussed about the need for home oxygen. VITALS: Temperature 98.1 degrees, pulse 84, respiratory rate 19, blood pressure 106/73, saturating 90% on 2 L nasal cannula. PHYSICAL EXAMINATION: General: He is not in any acute distress at rest. He has facial rosacea . No pallor, cyanosis. He has prominent clubbing. No icterus. has oral cavity is moist. Lungs: Air entry appears bilaterally equal. No wheeze or rhonchi. He has crackles bilateral infrascapular region, which appear coarse in nature, Velcro like. Heart: S1, S2 normal. No murmur, rub or gallop. Abdomen: Soft. There was some epigastric tenderness, but I could not see any mass. There was no rebound or rigidity. Extremities: No lower extremity edema. Neurologic: He is alert and oriented x3. Input and output suggest -2 L today. LABS: Suggestive of WBC of 11,000, hemoglobin 14.6, platelet 269. No BMP today. MICROBIOLOGY: No positive microbiological data. IMAGING: No new imaging today. ASSESSMENT AND PLAN: 1. Acute hypoxic respiratory failure due to predominantly left lung multifocal pneumonia. Continue intravenous levofloxacin. I will add intravenous vancomycin considering his persistent shortness of breath, as well as slightly worsening of leukocytosis. His Coronavirus Disease 2019 testing and influenza screen have been negative. He was previously not able to make sputum. I will collect the sputum culture today. 2. Diffuse lung fibrosis pending cystic fibrosis testing. He previously had a 20 pack-year smoking history in the past, which he quit several years ago. His mother had history of pulmonary fibrosis. He has prominent clubbing on examination as well. He denies known history of diabetes or sexual dysfunction. He denies recurrent ear infections or pneumonia in the past. I will appreciate Pulmonology recommendations. 3. Transient ischemic attack on presentation, now resolved. Brain magnetic resonance imaging, magnetic resonance angiogram, echocardiogram, and neck magnetic resonance angiogram was largely unremarkable. There is no evidence of any vasculitis. I will continue him on aspirin and high-dose atorvastatin. DISPOSITION: Monitor patient inside the hospital. Add intravenous vancomycin today. Follow up with chest x-ray tomorrow. He made significant urine output on Lasix. I appreciate Pulmonology recommendations regarding discharge planning as well. cc: Howard Schulte MD
[2019-10-31] MEDS ORDERED: VANCOMYCIN 2,300 MG in NS 500 ML IV ONE (14:00)
--- NOTE | 2019-10-31 18:56 | PULMONOLOGY PROGRESS NOTE ---
DATE: 10/31/2019 SUBJECTIVE: The patient is awake, alert, and conversant. He has a dry cough. He denies sputum production. OBJECTIVE: Vital Signs: The patient has been afebrile for the last 24 hours. Blood pressure 108/72, heart rate 106, respiratory rate 19, oxygen saturation 96% on nasal Venturi mask. HEENT: Pupils are equal and reactive. Oropharynx appears clear. neck: Neck is supple. pulmonary: Chest reveals diffuse bilateral crackles. Cardiac: S1-S2. abdomen: Abdomen is soft. Extremities: Extremities reveal no edema. He does have prominent clubbing in his hands. LABORATORIES: CT scan of the thorax was reviewed. LABORATORIES AND STUDIES: CT scan of the thorax was reviewed. He has ground-glass changes along with more advanced honeycombing. Chemistries: C-reactive protein is elevated at 58. Total protein is elevated at 8.4. D-dimer was elevated at greater than 20 on 10/27/2019. COVID-19 test was negative. IMPRESSION: A 49-year-old with a family history of idiopathic pulmonary fibrosis in a mother who required lung transplantation at the age of 56. The patient has evidence of chronic fibrotic changes on CT scan with honeycombing and has clubbing on exam. He appears to have an acute on chronic exacerbation of pulmonary fibrosis. He has elevation in his C-reactive protein. RECOMMENDATIONS: 1. Initiate steroids with a follow-up C-reactive protein on Sunday. 2. Follow-up inflammatory markers. 3. Check connective tissue profile with both a cascade and an LAVERNE with reflex. 4. Check a serum protein electrophoresis given elevation in total protein level. 5. Continue antibiotics covering both typical and atypical organisms. cc: Aron Okeefe MD
[2019-10-31] MEDS: SOLU-MEDROL IV SCH (21:06)
[2019-10-31] MEDS: LEVAQUIN 750 MG/D5W 750 MG/150 ML IVPB IV SCH ×2 (21:06→21:48)
[2019-11-01] MEDS: VANCOMYCIN 1,700 MG in NS 250 ML IV SCH ×2 (01:58→14:21)
[2019-11-01] MEDS: SOLU-MEDROL IV SCH ×4 (01:59→20:25)
[2019-11-01] MEDS: PRILOSEC PO SCH ×2 (05:37→05:59)
[2019-11-01 06:51] LABS: AGAP 12; BUN 11 mg/dL (8-22); CHLORIDE 99 mmol/L (98-107); COSMO 276; CREATININE 0.6 mg/dL (0.7-1.2); ESTIMATED GFR > 60; GLUCOSE 156 mg/dL (70-104); POTASSIUM 4.7 mmol/L (3.5-5.1); SODIUM 137 mmol/L (136-145); TCO2 26 mmol/L (25-35)
[2019-11-01] MEDS: DUONEB (A & A) INH SCH ×5 (08:19→19:33)
--- NOTE | 2019-11-01 08:46 | Diag Imaging Result Doc PS360 ---
EXAM: CHEST-2 VIEWS 11/01/2019 HISTORY: hypoxia TECHNIQUE: PA and lateral chest COMMENT: There are patchy alveolar opacities bilaterally. There is increased interstitial markings and pleural thickening particularly in the apices. These findings were also present on 10/30/2019 and 10/27/2019. IMPRESSION: Pulmonary and pleural fibrosis. Essentially stable since 10/27/2019. Electronically signed by Mauro Bashir 11/01/2019 8:44 AM
[2019-11-01] MEDS: LIPITOR PO SCH (08:48)
[2019-11-01] MEDS: ASPIRIN PO SCH (08:48)
[2019-11-01] MEDS: LOVENOX SUBQ SCH (08:49)
--- NOTE | 2019-11-01 14:50 | PULMONOLOGY PROGRESS NOTE ---
DATE: 11/01/2019 SUBJECTIVE: The patient is awake and alert. He believes his breathing may have slightly improved. He has been transitioned over to a nasal cannula. OBJECTIVE: Vital Signs: The patient has been afebrile for the last 24 hours. Blood pressure 106/72, heart rate 86, respiratory rate 14, oxygen saturation 97%. HEENT: Pupils are equal and reactive. Oropharynx is clear. Neck: Is supple. Chest: Reveals crackles Bilaterally. Cardiac exam: S1, S2. Abdomen: Is soft. Extremities: Without edema. LABORATORIES: Sodium 137, potassium 4.7, chloride 99, bicarbonate 26, BUN 11, creatinine 0.6. Chest x-ray reveals bilateral interstitial infiltrates without change. IMPRESSION: A 49-year-old with 1. Radiographic exam consistent with pulmonary fibrosis with an acute exacerbation of pneumonitis. 2. Family history of idiopathic pulmonary fibrosis. 3. Hypoxemic respiratory failure. 4. Elevated inflammatory markers. PLAN: 1. Continue current steroid regimen. 2. Follow up D-dimer and C-reactive protein tomorrow. 3. Await serum protein electrophoresis results. 4. Continue antibiotics. cc: Aron Okeefe MD
--- NOTE | 2019-11-01 15:36 | PROGRESS NOTE ---
DATE: 11/01/2019 INTERVAL HISTORY: Mr. Jaime was started on steroids yesterday for possible idiopathic pulmonary fibrosis and pneumonitis. In the morning time, his chest x-ray suggested pulmonary fibrosis without any change. SUBJECTIVE: He denies any new complaints. He denies any shortness of breath at rest, however, on physical exertion, he usually gets short of breath. VITAL SIGNS: Temperature 97.6 degrees, pulse 86, respiratory rate 14, blood pressure 106/72. He is saturating 93% on 6 L nasal cannula at the moment. PHYSICAL EXAMINATION: General: He is not in any acute distress though he does have facial plethora because of rosacea. Lungs: He has inspiratory crackles Velcro-like bilateral infrascapular region. Heart: S1, S2 normal. No murmur or gallop. Abdomen: Soft, nontender. Extremities: No lower extremity edema. He has clubbing. Neurologic: He is alert and oriented x3. Input and output suggest -2 L yesterday, positive 700 mL today. LABORATORY: No CBC today. BMP has BUN 11, creatinine 0.7. MICROBIOLOGY: No new data. He has antinuclear antibody, ANCA, cystic fibrosis panel in the lab. ASSESSMENT AND PLAN: 1. Acute hypoxic respiratory failure due to predominantly left lung multifocal pneumonia on top of advanced pulmonary fibrosis. Follow up antinuclear antibody, ANCA, connective tissue cascade glomerular basement membrane antibody, and LAVERNE. Continue intravenous vancomycin and levofloxacin, intravenous steroids. Continue oxygen to maintain saturation more than 94%. 2. Prominent clubbing and family history of lung fibrosis in mother requiring lung transplantation. The patient did have history of 20 pack year smoking history in the past, which he quit several years ago. He does not have history of exposure to asbestos or exposure to any fumes, chemicals, or dust. 3. Transient ischemic attack on presentation with brain MR imaging, echocardiogram and neck MRA largely unremarkable. There was no evidence of vasculitis. I will continue aspirin and high- dose atorvastatin. DISPOSITION: Continue to monitor patient inside the hospital as we await further workup. Plan of care was discussed with the patient. I talked in detail plan of care with the patient's sister on the phone. I allowed her to asked questions. All of her questions have been answered. cc: Howard Schulte MD
[2019-11-01] MEDS: LEVAQUIN 750 MG/D5W 750 MG/150 ML IVPB IV SCH (21:58)
[2019-11-02] MEDS: DUONEB (A & A) INH SCH ×5 (00:04→19:46)
[2019-11-02] MEDS: VANCOMYCIN 1,700 MG in NS 250 ML IV SCH (03:14)
[2019-11-02] MEDS: SOLU-MEDROL IV SCH ×4 (03:17→21:13)
[2019-11-02] MEDS: PRILOSEC PO SCH (06:16)
[2019-11-02 07:16] LABS: BASO# 0.04 X1000 (0.0-0.2); BASO% 0.3 % (0.0-0.8); EOS# 0.03 X1000 (0.0-0.7); EOS% 0.2 % (0.0-10.0); HEMATOCRIT 41.8 % (42.0-52.0); HEMOGLOBIN 13.5 g/dL (14.0-18.0); IMM GRAN# 0.07 X1000 (0.0-0.04); IMM GRAN% 0.5 % (0.0-0.5); LYMPH# 0.63 X1000 (1.2-3.4); LYMPH% 4.4 % (20.5-51.1); MCH 26.6 PG (27-31); MCHC 32.3 g/dL (33-37); MCV 82.3 FL (81-99); MONO# 0.52 X1000 (0.11-0.59); MONO% 3.7 % (1.7-9.3); MPV 9.5 FL (7.4-10.4); NEUT# 12.89 X1000 (1.4-6.5); NEUT% 90.9 % (42.2-75.2); PLT 274 X1000 (130-400); RBC 5.08 XMIL (4.7-6.1); RDW 12.9 % (11.5-14.5); WBC 14.18 X1000 (4.8-10.8)
[2019-11-02 07:43] LABS: BANDS 4 % (0-1); LYMPHS 2 % (21-51); MONO 2 % (1-9); SEGS 92 % (42-75)
[2019-11-02] MEDS ORDERED: LOPRESSOR IV ONE (09:38)
[2019-11-02] MEDS ORDERED: CARDIZEM IV ONE (09:47)
[2019-11-02] MEDS: LOVENOX SUBQ SCH ×2 (10:07→21:14)
[2019-11-02] MEDS: LIPITOR PO SCH (10:08)
[2019-11-02] MEDS: ASPIRIN PO SCH (10:08)
[2019-11-02 10:29] LABS: AGAP 13; BUN 16 mg/dL (8-22); CALCIUM 8.9 mg/dL (8.8-10.2); CHLORIDE 99 mmol/L (98-107); COSMO 277; CREATININE 0.6 mg/dL (0.7-1.2); ESTIMATED GFR > 60; GLUCOSE 128 mg/dL (70-104); POTASSIUM 4.5 mmol/L (3.5-5.1); SODIUM 137 mmol/L (136-145); TCO2 25 mmol/L (25-35)
[2019-11-02 10:56] LABS: AGAP 11; BUN 16 mg/dL (8-22); CALCIUM 9.1 mg/dL (8.8-10.2); CHLORIDE 101 mmol/L (98-107); COSMO 283; CREATININE 0.7 mg/dL (0.7-1.2); ESTIMATED GFR > 60; GLUCOSE 137 mg/dL (70-104); MAGNESIUM 2.2 mg/dL (1.5-2.7); POTASSIUM 4.5 mmol/L (3.5-5.1); SODIUM 140 mmol/L (136-145); TCO2 28 mmol/L (25-35)
--- NOTE | 2019-11-02 11:06 | PROGRESS NOTE ---
DATE: 11/02/2019 INTERVAL HISTORY: Mr. Jaime went into atrial fibrillation with rapid ventricular response this morning. I received a page from the nursing team that his heart rate was sustaining in 150s and 160s. I ordered a stat EKG. I got an EKG, and then evaluated the patient at bedside. SUBJECTIVE: He denies any chest pain or shortness of breath more than usual. He is complaining of palpitation. He denies nausea, vomiting, or abdominal pain. He denies having experienced atrial fibrillation in the past. Review of system: Negative for chest pain. Positive for shortness of breath on exertion. Negative for nausea, vomiting. Negative for weakness. Medication: Duonebs Solumedrol Vancomycin Levofloxacin Omeprazole OBJECTIVE: Vital Signs: Temperature 97.5 degrees, pulse 102, respiratory rate 18, blood pressure 102/72, he is saturating 97% on 50% Ventimask. General: He is in mild distress. HEENT: Oral cavity is moist. Lungs: Air entry bilaterally equal. No wheeze or rhonchi. He has crackles, bilateral infrascapular region. Cardiovascular: S1, S2 normal. Irregularly irregular. No murmur, rub, or gallop. Abdomen: Soft, nontender. Extremities: Marked clubbing. No lower extremity edema. ASSESSMENT AND PLAN: 1. Acute hypoxic respiratory failure due to predominantly left lung multifocal infiltrate with pulmonary fibrosis. Follow up antinuclear antibody, ANCA, connective tissue cascade, glomerular basement membrane antibody, and inflammatory markers. Continue intravenous vancomycin, levofloxacin, steroids, and oxygen to maintain saturation more than 94%. 2. Family history of pulmonary fibrosis in mother, requiring lung transplantation, and personal history of [id number] smoking, which he quit several years ago. Will continue inhaled bronchodilators. 3. Atrial fibrillation with rapid ventricular response. This is likely in the setting of the use of inhaled bronchodilators, his hypoxic respiratory failure, and acute other medical conditions. I gave him intravenous metoprolol. I will give him intravenous diltiazem, and transfer him to [facility]. He may or may not need diltiazem drip. I increase his enoxaparin dose to every 12 hours. His echocardiogram on 10/28/2019 had ejection fraction of 55% without mitral stenosis. 4. Transient ischemic attack on presentation with negative brain MR imaging. Continue aspirin and high-dose atorvastatin. 5. Disposition. I will continue to monitor the patient in PVC unit. Plan of care discussed with him. His questions have been answered. TIME SPENT: 35 minutes cc: Howard Schulte MD MTDD
[2019-11-02] MEDS: CARDIZEM 100 MG/NS 100 MG/100 ML IVPB IV SCH ×2 (11:08→19:54)
[2019-11-02] MEDS ORDERED: VANCOMYCIN IV SCH (15:00)
[2019-11-02] MEDS ORDERED: NS IV SCH (15:00)
[2019-11-02] MEDS: VANCOMYCIN 1,900 MG in NS 500 ML IV SCH (15:56)
--- NOTE | 2019-11-02 18:38 | EKG Report ---
Test Performed on : 11/02/2019 09:25:02 AM Test Reason : Tachycardia Blood Pressure : / mmHG Vent. Rate : 163 BPM Atrial Rate : 174 BPM P-R Int : 000 ms QRS Dur : 090 ms QT Int : 300 ms P-R-T Axes : 000 031 -66 degrees QTc Int : 494 ms Critical Test Result: High HR Atrial fibrillation. with rapid ventricular response. Cannot rule out Inferior infarct (cited on or before 27-OCT-2019) Abnormal ECG When compared with ECG of 27-OCT-2019 21:29, (Unconfirmed) Atrial fibrillation. has replaced Sinus rhythm. Vent. rate has increased BY 86 BPM Left posterior fascicular block is no longer present ST more depressed in Lateral leads Nonspecific T wave abnormality, worse in Lateral leads Confirmed by Silverio HUERTA, Jhonathan Wallace ([id number]) on 11/03/2019 4:48:09 PM
[2019-11-02] MEDS: LEVAQUIN 750 MG/D5W 750 MG/150 ML IVPB IV SCH (21:14)
--- NOTE | 2019-11-03 02:35 | PULMONOLOGY PROGRESS NOTE ---
DATE: 11/02/2019 INTERIM HISTORY: The patient developed atrial fibrillation with rapid ventricular response after an albuterol treatment. His rate is now controlled. He reports his breathing has marginally improved. OBJECTIVE: Vital Signs: The patient has been afebrile for the last 24 hours. Blood pressure 107/69, heart rate 81, respiratory rate 21, oxygen saturation in 94% on 6 L per nasal cannula. HEENT: Pupils are equal and reactive. Oropharynx appears clear. Neck: Supple. Chest: Reveals crackles bilaterally. Cardiac: S1-S2. Irregular rhythm. Abdomen: Soft. Extremities: Without edema. LABORATORIES: White blood count 14,000, hemoglobin 13.5, platelet count 274,000. C-reactive protein has decreased to 27.11. LAVERNE, ANCA with connective tissue cascade, serum protein electrophoresis, and glomerular basement membrane antibodies are pending. IMPRESSION: A 49-year-old with: 1. CT scan consistent with idiopathic pulmonary fibrosis with possible an acute exacerbation of pneumonitis. 2. Family history of idiopathic pulmonary fibrosis. 3. Atrial fibrillation with rapid ventricular response following beta agonist. 4. Hypoxemic respiratory failure. 5. Elevated inflammatory markers with improvement following steroids. PLAN: 1. Current steroid regimen. 2. Await connective tissue markers and serum protein electrophoresis. Current antibiotics change. cc: Aron Okeefe MD
[2019-11-03] MEDS: VANCOMYCIN 1,900 MG in NS 500 ML IV SCH ×2 (03:43→16:28)
[2019-11-03] MEDS: SOLU-MEDROL IV SCH ×4 (03:43→20:10)
[2019-11-03] MEDS: PRILOSEC PO SCH ×2 (05:45→07:36)
[2019-11-03 06:14] LABS: BASO# 0.01 X1000 (0.0-0.2); BASO% 0.1 % (0.0-0.8); EOS# 0.02 X1000 (0.0-0.7); EOS% 0.1 % (0.0-10.0); HEMATOCRIT 41.2 % (42.0-52.0); HEMOGLOBIN 13.3 g/dL (14.0-18.0); IMM GRAN# 0.06 X1000 (0.0-0.04); IMM GRAN% 0.4 % (0.0-0.5); LYMPH# 0.65 X1000 (1.2-3.4); LYMPH% 4.1 % (20.5-51.1); MCH 26.9 PG (27-31); MCHC 32.3 g/dL (33-37); MCV 83.2 FL (81-99); MONO# 0.62 X1000 (0.11-0.59); MONO% 3.9 % (1.7-9.3); MPV 9.7 FL (7.4-10.4); NEUT# 14.37 X1000 (1.4-6.5); NEUT% 91.4 % (42.2-75.2); PLT 282 X1000 (130-400); RBC 4.95 XMIL (4.7-6.1); RDW 13.1 % (11.5-14.5); WBC 15.73 X1000 (4.8-10.8)
[2019-11-03 06:32] LABS: AGAP 11; BUN 17 mg/dL (8-22); CALCIUM 8.4 mg/dL (8.8-10.2); CHLORIDE 103 mmol/L (98-107); COSMO 282; CREATININE 0.6 mg/dL (0.7-1.2); ESTIMATED GFR > 60; GLUCOSE 110 mg/dL (70-104); POTASSIUM 4.2 mmol/L (3.5-5.1); SODIUM 140 mmol/L (136-145); TCO2 26 mmol/L (25-35)
[2019-11-03] MEDS ORDERED: LASIX IV ONE (08:15)
[2019-11-03] MEDS ORDERED: LASIX PO ONE (08:16)
[2019-11-03] MEDS: LIPITOR PO SCH (08:42)
[2019-11-03] MEDS: ASPIRIN PO SCH (08:43)
--- NOTE | 2019-11-03 09:18 | EKG Report ---
Test Performed on : 11/03/2019 08:10:32 AM Test Reason : Eval; fr heart rhythm Blood Pressure : / mmHG Vent. Rate : 080 BPM Atrial Rate : 086 BPM P-R Int : 000 ms QRS Dur : 096 ms QT Int : 378 ms P-R-T Axes : 000 021 016 degrees QTc Int : 435 ms Atrial fibrillation. Abnormal ECG When compared with ECG of 02-NOV-2019 09:25, (Unconfirmed) Vent. rate has decreased BY [address] no longer depressed in Lateral leads Nonspecific T wave abnormality no longer evident in Lateral leads Confirmed by Silverio HUERTA, Jhonathan Wallace ([id number]) on 11/03/2019 4:48:32 PM
[2019-11-03] MEDS: LOVENOX SUBQ SCH ×3 (09:43→23:39)
[2019-11-03] MEDS: CARDIZEM CD PO SCH (11:32)
[2019-11-03] MEDS ORDERED: AYR NASAL SPRAY NAS PRN (12:10)
[2019-11-03 12:15] LABS: ANTINEUTROPHIL CYTOPLASMIC AB SEE COMMENTS
[2019-11-03] MEDS ORDERED: NS NEB INH SCH (12:15)
[2019-11-03] MEDS ORDERED: ATROVENT NEB INH PRN (12:15)
--- NOTE | 2019-11-03 13:52 | PROGRESS NOTE ---
DATE: 11/03/2019 RECENT HISTORY: Mr. Jaime was transferred to [facility] yesterday for his atrial fibrillation. He did not receive his levalbuterol inhaler since it was thought to be the provoking factor. His oxygen levels were low, and he was started on Venturi mask this morning. He is also getting a dose of Lasix. SUBJECTIVE: Mr. Jaime denies new complaints. He denies chest pain. He is feeling short of breath. He has occasional cough. OBJECTIVE: Vital Signs: Currently, temperature 97.6 degrees, pulse 90, respiratory rate 20, blood pressure 105/86, he is saturating 94% on 6 L nasal cannula. General: He is not in any acute distress. HEENT: Oral cavity is moist. Lungs: Air entry bilaterally equal. No wheeze or rhonchi. He has crackles affecting both of his lungs, especially infrascapular region. Heart: S1, S2 normal. Irregularly irregular. No murmur, rub, or gallop. Abdomen: Soft, nontender. Extremities: No lower extremity edema. Neurologic: He is alert and oriented x3. REVIEW OF SYSTEMS: Positive for shortness of breath. Negative for chest pain. Negative for dizziness. Negative for diarrhea. CURRENT MEDICATIONS: He is on aspirin, atorvastatin, Cardizem, enoxaparin (therapeutic dose), Atrovent, levofloxacin, and vancomycin. MICROBIOLOGY: No new data. IMAGING: No new data. ASSESSMENT AND PLAN: 1. Acute hypoxic respiratory failure due to predominantly left lung multifocal infiltrate with pulmonary fibrosis. His antinuclear antibody, ANCA, connective tissue cascade, glomerular basement membrane antibody are currently in lab. His inflammatory markers are elevated. I will stop intravenous levofloxacin today and intravenous vancomycin tomorrow. Continue intravenous steroids and oxygenation to maintain saturation more than 94% through nasal cannula. 2. New diagnosis of Pulmonary fibrosis this admission with prior history of [id number] smoking, which he quit several years ago, Family history of idiopathic pulmonary fibrosis in mother requiring lung transplantation. His current presentation could be acute flare of idiopathic pulmonary fibrosis. Continue intravenous steroids. Appreciate Pulmonology recommendations. 4. Atrial fibrillation with rapid ventricular response in the setting of hypoxic respiratory failure, as well as inhaled beta-2 agonist. He is not wheezing on examination. I will appreciate Pulmonology recommendations about discontinuing beta-2 agonist and keeping him on inhaled ipratropium only. Currently, his heart rate is well controlled. I will stop intravenous diltiazem drip, and change it to oral diltiazem, and continue therapeutic Lovenox. 5. Transient ischemic attack on admission: Continue aspirin and high-dose statin. 6. Disposition. Continue to monitor the patient inside the hospital as we await stabilization of his oxygen needs and come up with oral steroid regimen. He qualified for home O2. director construction services have been aware of it. I talked to his sister on the phone today. We discussed about stopping antibiotics in near future. Continuing to monitor his oxygen needs and I answered all of her questions. In summary, Mr. Jaime had initially came in with stroke like symptoms. MR imaging of the brain did not detect any CVA. When he was in ER, he was found to have profound hypoxia which triggered further work up. He was then detected to have pulmonary fibrosis which is under investigation. cc: Howard Schulte MD MTDD
--- NOTE | 2019-11-03 15:44 | PROVIDER PROGRESS NOTE ---
Progress Note Dr. Mosquera Progress Note/Pulmonary and or critical care Subjective: The patient is lying in bed on VM 50%. He has mild SOB with increased work of breathing at this time. He is complaining of nasal congestion and difficulty breathing. He blows his nose during my encounter with minimal fresh blood noted on the tissue. His last BM was two days ago, but he denies constipation at this time. Objective: Vital Signs: T 97.8 (no fever in last 24 hours), AR 84, RR 22, BP 112/76 and SaO2 93% on NC 6L. Physical Examination: General: Lying in bed on VM 50% with mild respiratory distress noted. HEENT: Normocephalic. Atraumatic. Trachea midline. Mucosa pink and moist. Oropharynx clear. PERRL. Dry black colored drainage occupied most of the nasal cavity space, especially in the left nasal cavity noted. Nasal mucosa is not visible at this time. Chest: Labored with increased work of breathing, but no accessory muscle use noted. Symmetrical excursion. Auscultation reveals dry inspiratory crackles bibasilarly anteriorly and posteriorly. CVS: Mild tachycardia. S1 and S2 appreciated. Abdomen: Soft. Non-tender. Non-distended. Bowel sounds present in all 4 quadrants. Extremities: No pedal edema. No cyanosis. Clubbing noted. Neuro: Anxious. Alert and oriented x 3. Answer simple questions. Follow simple commands. Labs and Radiology: Laboratory Results 10/31/19 10/31/19 11/01/19 16:27 16:27 06:09 WBC RBC Hgb Hct MCV MCH MCHC RDW Std Deviation Plt Count MPV Immature Gran % (Auto) Neut % (Auto) Lymph % (Auto) [place] % (Auto) Eos % (Auto) Baso % (Auto) Immature Gran # (Auto) Neut # (Auto) Lymph # (Auto) [place] # (Auto) Eos # (Auto) Baso # (Auto) D-Dimer, Quantitative Sodium Potassium Chloride Carbon Dioxide Anion Gap BUN Creatinine Estimated GFR/1.73 m2 BUN/Creatinine Ratio Glucose Calculated Osmolality Calcium C-Reactive Prot, Quant LAVERNE Screen SEE COMMENTS ANCA Vasculitis Panel SEE COMMENTS Glomerular Base Mem IgG SEE COMMENTS 11/03/19 11/03/19 11/03/19 05:02 05:02 05:02 WBC 15.73 H RBC 4.95 Hgb 13.3 L Hct 41.2 L MCV 83.2 MCH 26.9 L MCHC 32.3 L RDW Std Deviation 13.1 Plt Count 282 MPV 9.7 Immature Gran % (Auto) 0.4 Neut % (Auto) 91.4 H Lymph % (Auto) 4.1 L [place] % (Auto) 3.9 Eos % (Auto) 0.1 Baso % (Auto) 0.1 Immature Gran # (Auto) 0.06 H Neut # (Auto) 14.37 H Lymph # (Auto) 0.65 L [place] # (Auto) 0.62 H Eos # (Auto) 0.02 Baso # (Auto) 0.01 D-Dimer, Quantitative Sodium 140 Potassium 4.2 Chloride 103 Carbon Dioxide 26 Anion Gap 11 BUN 17 Creatinine 0.6 L Estimated GFR/1.73 m2 > 60 BUN/Creatinine Ratio 28 Glucose 110 H Calculated Osmolality 282 Calcium 8.4 L C-Reactive Prot, Quant 11.06 H LAVERNE Screen ANCA Vasculitis Panel Glomerular Base Mem IgG 11/03/19 05:02 WBC RBC Hgb Hct MCV MCH MCHC RDW Std Deviation Plt Count MPV Immature Gran % (Auto) Neut % (Auto) Lymph % (Auto) [place] % (Auto) Eos % (Auto) Baso % (Auto) Immature Gran # (Auto) Neut # (Auto) Lymph # (Auto) [place] # (Auto) Eos # (Auto) Baso # (Auto) D-Dimer, Quantitative 3.85 H Sodium Potassium Chloride Carbon Dioxide Anion Gap BUN Creatinine Estimated GFR/1.73 m2 BUN/Creatinine Ratio Glucose Calculated Osmolality Calcium C-Reactive Prot, Quant LAVERNE Screen ANCA Vasculitis Panel Glomerular Base Mem IgG Assessment: Acute respiratory failure. Worsening. Patient is VM 50% with SaO2 in low 90s and complaining of SOB at rest at this time. Possible left lung multifocal pneumonia. Acute exacerbation on advanced pulmonary fibrosis. COVID-19 test on 10/28/19 is negative. The patients mother had pulmonary fibrosis and required lung transplant. He has prominent clubbing. He has history of 20 pack year smoking history in the past. The results of cystic fibrosis mutation panel are pending. The LAVERNE Screen is positive. ANCA Vasculitis panel is negative. And Glomerular Base Membrane IgG is negative. Elevated inflammatory markers. Improving. Transient ischemic attack. Atrial fibrillation with rapid ventricular response. Patient went into atrial fibrillation with rapid ventricular response on Sunday Morning. DuoNeb discontinued. On Cardizem. Plan: Continue supplemental oxygen as needed. We titrated supplemental oxygen to patient's needs per clinical protocol. We will monitor patient's response closely and adjust accordingly. We will check ABG if indicated. Continue antibiotic Levaquin and Vancomycin. We will keep monitoring patient's clinical and lab response closely. Continue Steroid. Currently on IV Solu-Medrol 80 mg Q6H. We follow up the results of the cystic fibrosis mutation panel and the serum protein electrophoresis. Continue GI and DVT prophylaxis. We are initiating Xopenex, which has less cardiac side effects than Albuterol has, with Atrovent at this time. We recommend inpatient PFT when patient's respiratory statue is stable.
[2019-11-03] MEDS: ATROVENT NEB INH SCH ×2 (16:13→22:18)
[2019-11-03] MEDS: LEVAQUIN 750 MG/D5W 750 MG/150 ML IVPB IV SCH ×2 (20:10→23:40)
[2019-11-03] MEDS: XOPENEX NEB INH SCH (22:18)
[2019-11-04] MEDS: SOLU-MEDROL IV SCH ×4 (03:50→21:11)
[2019-11-04] MEDS: VANCOMYCIN 1,900 MG in NS 500 ML IV SCH ×2 (03:50→15:19)
--- NOTE | 2019-11-04 05:24 | EKG Report ---
Test Performed on : 11/04/2019 04:00:31 AM Test Reason : rhythm change Blood Pressure : / mmHG Vent. Rate : 044 BPM Atrial Rate : 044 BPM P-R Int : 172 ms QRS Dur : 100 ms QT Int : 486 ms P-R-T Axes : 043 029 022 degrees QTc Int : 415 ms Critical Test Result: Low HR Marked sinus bradycardia. with premature supraventricular complexes. Nonspecific ST abnormality Abnormal ECG When compared with ECG of 03-NOV-2019 08:10, Sinus rhythm. has replaced Atrial fibrillation. Vent. rate has decreased BY [address] elevation now present in Inferior leads Confirmed by Silverio HUERTA, Jhonathan Wallace ([id number]) on 11/05/2019 9:24:29 AM
[2019-11-04] MEDS: XOPENEX NEB INH SCH ×4 (05:33→21:40)
[2019-11-04 05:42] LABS: BASO# 0.02 X1000 (0.0-0.2); BASO% 0.2 % (0.0-0.8); HEMATOCRIT 42.8 % (42.0-52.0); HEMOGLOBIN 14.1 g/dL (14.0-18.0); IMM GRAN# 0.03 X1000 (0.0-0.04); IMM GRAN% 0.2 % (0.0-0.5); LYMPH# 0.69 X1000 (1.2-3.4); LYMPH% 5.6 % (20.5-51.1); MCH 27.2 PG (27-31); MCHC 32.9 g/dL (33-37); MCV 82.5 FL (81-99); MONO# 0.51 X1000 (0.11-0.59); MONO% 4.1 % (1.7-9.3); MPV 9.2 FL (7.4-10.4); NEUT# 11.12 X1000 (1.4-6.5); NEUT% 89.9 % (42.2-75.2); PLT 250 X1000 (130-400); RBC 5.19 XMIL (4.7-6.1); RDW 12.9 % (11.5-14.5); WBC 12.37 X1000 (4.8-10.8)
[2019-11-04 05:56] LABS: AGAP 7; BUN 18 mg/dL (8-22); CALCIUM 8.3 mg/dL (8.8-10.2); CHLORIDE 102 mmol/L (98-107); COSMO 279; CREATININE 0.6 mg/dL (0.7-1.2); ESTIMATED GFR > 60; GLUCOSE 117 mg/dL (70-104); POTASSIUM 4.3 mmol/L (3.5-5.1); SODIUM 138 mmol/L (136-145); TCO2 29 mmol/L (25-35)
[2019-11-04 06:00] LABS: FREE T4 1.43 ng/dL (0.93-1.70); TSH 0.49 uIUmL (0.27-4.20)
[2019-11-04] MEDS: ATROVENT NEB INH SCH ×4 (06:03→21:40)
[2019-11-04] MEDS: PRILOSEC PO SCH (06:25)
[2019-11-04 06:50] LABS: LYMPHS 6 % (21-51); MONO 2 % (1-9); SEGS 92 % (42-75)
--- NOTE | 2019-11-04 07:05 | Diag Imaging Result Doc PS360 ---
CHEST-1 VIEW - 11/04/2019 INDICATION: SOB COMPARISON: 11/01/2019 FINDINGS: Stable extensive peripheral opacities compatible pulmonary fibrosis. No new infiltrates. Heart size is top normal. IMPRESSION: Advanced pulmonary fibrosis. Electronically signed by Anjum Lake 11/04/2019 7:03 AM
[2019-11-04] MEDS: ASPIRIN PO SCH (08:15)
[2019-11-04] MEDS: LIPITOR PO SCH (08:15)
[2019-11-04] MEDS: CARDIZEM CD PO SCH (08:15)
[2019-11-04] MEDS: LOVENOX SUBQ SCH ×2 (09:15→21:11)
[2019-11-04 10:16] LABS: ALLEN TEST YES; BE 3.2 mmoll (-3.0-3.0); BLOOD TYPE ARTERIAL; HCO3-(ACT) 27.3 mmoll (20.0-26.0); METHB 0.8 % (0.0-1.5); MODALITY NRB; O2(CT) 18.9 mL/dL (15.0-23.0); O2HB 93.2 % (95.0-99.0); PCO2(98.6) 42 mmHg (35-45); PO2(98.6) 66 mmHg (60-100); SAMPLE BLOOD; SAO2 95.6 % (95.0-100.0); THB 14.4 g/dL (11.5-17.4); pH(98.6) 7.43 (7.35-7.45)
[2019-11-04] MEDS ORDERED: LASIX IV ONE (13:14)
--- NOTE | 2019-11-04 14:57 | PROGRESS NOTE ---
DATE: 11/04/2019 SUBJECTIVE: I have seen and examined Mr. Jaime today. He continues to be remarkably hypoxemic. He is on a nonrebreather, 15 L. He was saturating anywhere between 90 to 92. OBJECTIVE: Vital Signs: Blood pressure is 105/62, pulse of 74, respirations are 18, temperature is 97.1 degrees, patient is saturating 92%. General Examination: Mr. Jaime is a 49-year-old, gentleman. He was in bed, in mild respiratory distress. HEENT: Mucosa is pink. Anicteric. Acyanotic. Neck: Supple. No JVD. Chest: Air entry is bilaterally reduced. There are some fine Velcro crackles in the posterolateral lung dietz. Cardiovascular: Regular rate and rhythm. GI: Abdomen was soft. Extremities: No pedal edema. On the upper extremities, the patient has positive clubbing. SUPERVISOR INSPECTING: The patient is awake, alert, and oriented. Laboratory Data: WBC of 12.37, hemoglobin of 14.1, platelet count of 250,000. Chemistry is also reviewed and is unremarkable. ASSESSMENT: 1. Acute hypoxemic respiratory failure, presumably due to idiopathic pulmonary fibrosis exacerbation. 2. Atrial fibrillation with rapid ventricular response during the hospital course, also responds to beta agonist therapy. 3. History of more than 20 pack-year history with suspicion of underlying smoking lung/chronic obstructive pulmonary disease. 4. Clubbing, most likely due to longstanding interstitial lung disease (idiopathic pulmonary fibrosis). PLAN: In general, I think Mr. Jaime is fairly stable. He continues to be needing a high volume of supplemental oxygen. We are going to continue monitoring him in the hospital. cc: Michael Chavarria MD
[2019-11-04] MEDS ORDERED: BLISTEX MEDICATED BERRY LIP BALM TOP PRN (15:37)
--- NOTE | 2019-11-04 18:07 | PROVIDER PROGRESS NOTE ---
Progress Note Dr. Mosquera Progress Note/Pulmonary and or critical care Subjective: The patient is sitting in bed on NRB 100%. He has mild SOB with increased work of breathing at this time.He complains of SOB at rest. He apparently underwent physical therapy at an earlier time and became desaturated at 70s. Input was appreciated from Dr. Chavarria and other teams on the case. Objective: Vital Signs: T 96.7 (no fever in last 24 hours), HI 74, RR 16, BP 114/71 and SaO2 98% on VM 50%. Physical Examination: General: Sitting in bed on NRB 100% with mild respiratory distress noted. HEENT: Normocephalic. Atraumatic. Trachea midline. Mucosa pink and moist. Oropharynx clear. PERRL. Chest: Labored with increased work of breathing, but no accessory muscle use noted. Symmetrical excursion. Auscultation reveals dry inspiratory crackles bibasilarly anteriorly and posteriorly. CVS: S1 and S2 appreciated. Abdomen: Soft. Non-tender. Non-distended. Bowel sounds present in all 4 quadrants. Extremities: No pedal edema. No cyanosis. Clubbing noted. Neuro: Mildly anxious. Alert and oriented x 3. Answer simple questions. Follow simple commands. Labs and Radiology: Laboratory Results 10/28/19 10/31/19 11/04/19 16:08 16:27 04:56 WBC 12.37 H RBC 5.19 Hgb 14.1 Hct 42.8 MCV 82.5 MCH 27.2 MCHC 32.9 L RDW Std Deviation 12.9 Plt Count 250 MPV 9.2 Immature Gran % (Auto) 0.2 Neut % (Auto) 89.9 H Lymph % (Auto) 5.6 L Amelia % (Auto) 4.1 Eos % (Auto) 0.0 Baso % (Auto) 0.2 Immature Gran # (Auto) 0.03 Neut # (Auto) 11.12 H Lymph # (Auto) 0.69 L Amelia # (Auto) 0.51 Eos # (Auto) 0.00 Baso # (Auto) 0.02 Segmented Neutrophils 92 H Lymphocytes 6 L Monocytes 2 Specimen Type Sample Site pH pCO2 pO2 HCO3 Base Excess Oxyhemoglobin ABG O2 Sat (Calculated) ABG O2 Saturation ABG Carboxyhemoglobin ABG Methemoglobin Jhonathan Test A-a O2 Difference Total Hemoglobin Lactate Liter Flow Blood Gas Modality FiO2 % Sodium Potassium Chloride Carbon Dioxide Anion Gap BUN Creatinine Estimated GFR/1.73 m2 BUN/Creatinine Ratio Glucose Calculated Osmolality Calcium Ddn-K-Lehftdyvuop Pept Prot Electrophoresis SEE COMMENTS TSH Free T4 CF Mutation SEE COMMENTS 11/04/19 11/04/19 11/04/19 04:56 04:56 04:56 WBC RBC Hgb Hct MCV MCH MCHC RDW Std Deviation Plt Count MPV Immature Gran % (Auto) Neut % (Auto) Lymph % (Auto) Amelia % (Auto) Eos % (Auto) Baso % (Auto) Immature Gran # (Auto) Neut # (Auto) Lymph # (Auto) Amelia # (Auto) Eos # (Auto) Baso # (Auto) Segmented Neutrophils Lymphocytes Monocytes Specimen Type Sample Site pH pCO2 pO2 HCO3 Base Excess Oxyhemoglobin ABG O2 Sat (Calculated) ABG O2 Saturation ABG Carboxyhemoglobin ABG Methemoglobin Jhonathan Test A-a O2 Difference Total Hemoglobin Lactate Liter Flow Blood Gas Modality FiO2 % Sodium 138 Potassium 4.3 Chloride 102 Carbon Dioxide 29 Anion Gap 7 BUN 18 Creatinine 0.6 L Estimated GFR/1.73 m2 > 60 BUN/Creatinine Ratio 30 Glucose 117 H Calculated Osmolality 279 Calcium 8.3 L Snk-C-Nxduqccizvo Pept 453 H Prot Electrophoresis TSH 0.49 Free T4 1.43 CF Mutation 11/04/19 10:05 WBC RBC Hgb Hct MCV MCH MCHC RDW Std Deviation Plt Count MPV Immature Gran % (Auto) Neut % (Auto) Lymph % (Auto) Amelia % (Auto) Eos % (Auto) Baso % (Auto) Immature Gran # (Auto) Neut # (Auto) Lymph # (Auto) Amelia # (Auto) Eos # (Auto) Baso # (Auto) Segmented Neutrophils Lymphocytes Monocytes Specimen Type ARTERIAL Sample Site R RADIAL pH 7.43 pCO2 42 pO2 66 HCO3 27.3 H Base Excess 3.2 H Oxyhemoglobin 93.2 L ABG O2 Sat (Calculated) 18.9 ABG O2 Saturation 95.6 ABG Carboxyhemoglobin 1.70 ABG Methemoglobin 0.8 Jhonathan Test YES A-a O2 Difference 595.0 Total Hemoglobin 14.4 Lactate 2.30 H Liter Flow 15.0 Blood Gas Modality NRB FiO2 % 100.0 Sodium Potassium Chloride Carbon Dioxide Anion Gap BUN Creatinine Estimated GFR/1.73 m2 BUN/Creatinine Ratio Glucose Calculated Osmolality Calcium Bnp-J-Tjcsbmvahfp Pept Prot Electrophoresis TSH Free T4 CF Mutation Assessment: Acute respiratory failure. Worsening. paO2 66 on NRB with FiO2 100% this morning. Possible left lung multifocal pneumonia. CXR this morning shows stable advanced pulmonary fibrosis. Acute exacerbation on advanced pulmonary fibrosis. COVID-19 test on 10/28/19 is negative. The patients mother had pulmonary fibrosis and required lung transplant. He has prominent clubbing. He has history of 20 pack year smoking history in the past. The results of cystic fibrosis mutation panel are pending. The LAVERNE Screen is positive. ANCA Vasculitis panel is negative. Glomerular Base Membrane IgG is negative. Serum protein electrophoresis shows high Alpha 1, Alpha 2, Beta and Gamma (including elevated IgA and IgG). Elevated inflammatory markers. Transient ischemic attack. Atrial fibrillation with rapid ventricular response. Patient went into atrial fibrillation with rapid ventricular response on 11/02/19. On Cardizem. Plan: Continue supplemental oxygen as needed. We titrated supplemental oxygen to patient's needs per clinical protocol. We will monitor patient's response closely and adjust accordingly. We will check ABG tomorrow. We are ordering to transfer the patient to ICU at this time for closely monitoring as patient's respiratory status has been continuously declinedin last several days. we are giving Lasix 60 mg once at this time. We are checking proBNP today and tomorrow morning. Continue antibiotic Vancomycin. Levaquin was discontinued on 11/03/19. We will keep monitoring patient's clinical and lab response closely. Continue Steroid. Currently on IV Solu-Medrol 80 mg Q6H. We follow up the results of the cystic fibrosis mutation panel. Continue GI and DVT prophylaxis. Continue bronchodilators including Xopenex and Atrovent. We are planning inpatient PFT when patient's respiratory statuebecomes stable. We discuss patient's condition and care plan with patient face to face and patient's sister on phone. All questions have been answered. Total evaluation time in minutes: 34.
[2019-11-05] MEDS: ATROVENT NEB INH SCH ×4 (03:45→21:30)
[2019-11-05] MEDS: SOLU-MEDROL IV SCH ×4 (04:18→20:57)
[2019-11-05 05:02] LABS: BASO# 0.04 X1000 (0.0-0.2); BASO% 0.3 % (0.0-0.8); HEMATOCRIT 43.5 % (42.0-52.0); HEMOGLOBIN 14.3 g/dL (14.0-18.0); IMM GRAN# 0.04 X1000 (0.0-0.04); IMM GRAN% 0.3 % (0.0-0.5); LYMPH# 0.99 X1000 (1.2-3.4); LYMPH% 7.1 % (20.5-51.1); MCH 26.9 PG (27-31); MCHC 32.9 g/dL (33-37); MCV 81.8 FL (81-99); MONO# 0.45 X1000 (0.11-0.59); MONO% 3.2 % (1.7-9.3); MPV 9.5 FL (7.4-10.4); NEUT# 12.46 X1000 (1.4-6.5); NEUT% 89.1 % (42.2-75.2); PLT 269 X1000 (130-400); RBC 5.32 XMIL (4.7-6.1); RDW 12.8 % (11.5-14.5); WBC 13.98 X1000 (4.8-10.8)
[2019-11-05 05:15] LABS: AGAP 8; ALBUMIN 2.8 g/dL (3.5-5.0); BUN 24 mg/dL (8-22); CALCIUM 8.5 mg/dL (8.8-10.2); CHLORIDE 100 mmol/L (98-107); COSMO 284; CREATININE 0.6 mg/dL (0.7-1.2); ESTIMATED GFR > 60; GLUCOSE 136 mg/dL (70-104); PHOSPHORUS 3.2 mg/dL (2.7-4.5); POTASSIUM 3.9 mmol/L (3.5-5.1); SODIUM 139 mmol/L (136-145); TCO2 31 mmol/L (25-35)
[2019-11-05] MEDS: PRILOSEC PO SCH (06:22)
[2019-11-05] MEDS: LOVENOX SUBQ SCH (09:03)
[2019-11-05] MEDS: LIPITOR PO SCH (09:03)
[2019-11-05] MEDS: ASPIRIN PO SCH (09:03)
[2019-11-05] MEDS: CARDIZEM CD PO SCH (09:03)
[2019-11-05] MEDS: XOPENEX NEB INH SCH ×3 (09:22→21:30)
--- NOTE | 2019-11-05 10:04 | PROGRESS NOTE ---
DATE: 11/05/2019 SUBJECTIVE: I have seen and examined Mr. Jaime today. Mr. Jaime continues to be on a non- rebreather at 15 L oxygen. He refers to be doing fairly okay, but does complain of some swelling over the right forearm. OBJECTIVE: General: Mr. Jaime is a 49-year-old male, he is in bed. He said he is not in any cardiopulmonary distress, still on a non-rebreather. HEENT: Mucosa is pink and moist. Anicteric. Acyanotic. Neck: Supple. Respiratory: Air entry is bilaterally reduced. There are diffuse Velcro crackles in the posterior lung dietz. Cardiovascular: Slightly tachycardic, but regular. No murmurs, no rubs, no gallops. GI: The abdomen is soft. Bowel sounds present. Extremities: No pedal edema. There is clubbing of the hands. The right forearm is slightly swollen, presumably from previous IV access. GRADUATE ASSISTANT ATHLETIC TRAINER: The patient is awake, alert, and oriented. There is no focal deficit. LABORATORY DATA: WBC is 13.98. The rest of the CBC is unremarkable. Chemistry is also reviewed and unremarkable. Connective tissue disorder laboratory data have all been unremarkable. The LAVERNE, however, showed a double-stranded DNA very, very positive, over 302, and the FAMILY PRACTICE MEDICAL DOCTOR was also elevated. ASSESSMENT AND PLAN: 1. Acute hypoxemic respiratory failure, presumably secondary to idiopathic pulmonary fibrosis exacerbation. The patient continues to be on non-rebreather. Pulmonary Medicine is on board. 2. Atrial fibrillation with RVR during the hospital course due to beta agonist therapy. The patient has been started on diltiazem. Pulse rate has been better controlled. 3. A [id number] history, with suspicion of underlying COPD. 4. Clubbing secondary to long-standing interstitial lung disease (idiopathic pulmonary fibrosis). 5. Abnormal value of double-stranded DNA and FAMILY PRACTICE MEDICAL DOCTOR concerning for possible underlying rheumatological disease. We will advise Mr. Jaime to follow up with a schedule maker outpatient. cc: Michael Chavarria MD [facility] HOSPITALMarcella
--- NOTE | 2019-11-05 11:11 | Diag Imaging Result Doc PS360 ---
EXAM: CHEST-1 VIEW 11/05/2019 HISTORY: SOB TECHNIQUE: AP portable upright at 1056 COMMENT: There is interstitial and alveolar opacity over the lung bases. The inspiration is less optimal than on 11/04/2019. Overall there has otherwise been no significant change. IMPRESSION: Pulmonary fibrosis plus minus pulmonary edema. Electronically signed by Mauro Bashir 11/05/2019 11:08 AM
[2019-11-05 12:47] LABS: ALLEN TEST NO; BLOOD TYPE ARTERIAL; HCO3-(ACT) 31.1 mmoll (20.0-26.0); METHB 1.4 % (0.0-1.5); O2HB 96.2 % (95.0-99.0); PCO2(98.6) 48 mmHg (35-45); PO2(98.6) 118 mmHg (60-100); SAMPLE BLOOD; SAO2 98.9 % (95.0-100.0); THB 13.9 g/dL (11.5-17.4); pH(98.6) 7.45 (7.35-7.45)
[2019-11-05 12:49] LABS: MODALITY NRB
--- NOTE | 2019-11-05 17:17 | PROVIDER PROGRESS NOTE ---
Progress Note Dr. Mosquera Progress Note/Pulmonary and or critical care Subjective: The patient is lying in bed on NRB 100%. He states he is feeling better. Input was appreciated from Dr. Chavarria and other teams on the case. Objective: Vital Signs: T 98.2(no fever in last 24 hours), DE 80, RR 24, BP 119/66 and SaO2 98% on NRB 100%. I/O: -410 ml. Physical Examination: General: Sitting in bed on NRB 100% with no acute distress noted. HEENT: Normocephalic. Atraumatic. Trachea midline. Mucosa pink and moist. Oropharynx clear. PERRL. Chest: Labored with increased work of breathing, but no accessory muscle use noted. Symmetrical excursion. Auscultation reveals dry inspiratory crackles bibasilarly anteriorly and posteriorly. CVS: S1 and S2 appreciated. Abdomen: Soft. Non-tender. Non-distended. Bowel sounds present in all 4 quadrants. Extremities: No pedal edema. No cyanosis. Clubbing noted. Neuro: Alert and oriented x 3. Answer simple questions. Follow simple commands. Labs and Radiology: Laboratory Results 10/31/19 11/05/19 11/05/19 16:27 04:30 04:30 WBC 13.98 H RBC 5.32 Hgb 14.3 Hct 43.5 MCV 81.8 MCH 26.9 L MCHC 32.9 L RDW Std Deviation 12.8 Plt Count 269 MPV 9.5 Immature Gran % (Auto) 0.3 Neut % (Auto) 89.1 H Lymph % (Auto) 7.1 L [place] % (Auto) 3.2 Eos % (Auto) 0.0 Baso % (Auto) 0.3 Immature Gran # (Auto) 0.04 Neut # (Auto) 12.46 H Lymph # (Auto) 0.99 L [place] # (Auto) 0.45 Eos # (Auto) 0.00 Baso # (Auto) 0.04 Specimen Type Sample Site pH pCO2 pO2 HCO3 Base Excess Oxyhemoglobin ABG O2 Sat (Calculated) ABG O2 Saturation ABG Carboxyhemoglobin ABG Methemoglobin Jhonathan Test A-a O2 Difference Total Hemoglobin Lactate Liter Flow Blood Gas Modality FiO2 % Sodium Potassium Chloride Carbon Dioxide Anion Gap BUN Creatinine Estimated GFR/1.73 m2 BUN/Creatinine Ratio Glucose Calculated Osmolality Calcium Phosphorus Xah-G-Hlguxnplvhk Pept 139 H Albumin Connect Tiss Dis Intrp SEE COMMENTS 11/05/19 11/05/19 04:30 12:30 WBC RBC Hgb Hct MCV MCH MCHC RDW Std Deviation Plt Count MPV Immature Gran % (Auto) Neut % (Auto) Lymph % (Auto) [place] % (Auto) Eos % (Auto) Baso % (Auto) Immature Gran # (Auto) Neut # (Auto) Lymph # (Auto) [place] # (Auto) Eos # (Auto) Baso # (Auto) Specimen Type ARTERIAL Sample Site R BRACHIAL pH 7.45 pCO2 48 H pO2 118 H HCO3 31.1 H Base Excess 8.0 H Oxyhemoglobin 96.2 ABG O2 Sat (Calculated) 19.0 ABG O2 Saturation 98.9 ABG Carboxyhemoglobin 1.40 ABG Methemoglobin 1.4 Jhonathan Test NO A-a O2 Difference 535.0 Total Hemoglobin 13.9 Lactate 1.90 Liter Flow 20.0 Blood Gas Modality NRB FiO2 % 100.0 Sodium 139 Potassium 3.9 Chloride 100 Carbon Dioxide 31 Anion Gap 8 BUN 24 H Creatinine 0.6 L Estimated GFR/1.73 m2 > 60 BUN/Creatinine Ratio 40 Glucose 136 H Calculated Osmolality 284 Calcium 8.5 L Phosphorus 3.2 Tza-H-Miqdfnehhyd Pept Albumin 2.8 L Connect Tiss Dis Intrp Assessment: Acute respiratory failure. Improving oxygenation. paO2 118 on NRB with FiO2 100% this morning. Possible left lung multifocal pneumonia. CXR this morning shows pulmonary fibrosis +/- pulmonary edema. Acute exacerbation on advanced pulmonary fibrosis with possible underlying rheumatological disease. COVID-19 test on 10/28/19 is negative. The patients mother had pulmonary fibrosis and required lung transplant. He has prominent clubbing. He has history of 20 pack year smoking history in the past. The results of cystic fibrosis mutation panel are negative. The LAVERNE Screen is positive. ANCA Vasculitis panel is negative. Glomerular Base Membrane IgG is negative. Serum protein electrophoresis shows high Alpha 1, Alpha 2, Beta and Gamma (including elevated IgA and IgG). Elevated inflammatory markers. Transient ischemic attack. Atrial fibrillation with rapid ventricular response. Patient went into atrial fibrillation with rapid ventricular response on 11/02/19. On Cardizem. Under control. Prognosis is guarded. Plan: Continue supplemental oxygen as needed. We titrated supplemental oxygen to patient's needs per clinical protocol. We will monitor patient's response closely and adjust accordingly. We follow up ABG and CXR daily. Complete Vancomycin on 11/04/19 and Levaquin on 11/03/19. We will keep monitoring patient's clinical and lab response closely. Continue Steroid. Currently on IV Solu-Medrol 80 mg Q6H. We follow up the results of the cystic fibrosis mutation panel. Continue GI and DVT prophylaxis. Continue bronchodilators including Xopenex and Atrovent. We are planning inpatient PFT when patient's respiratory statuebecomes stable. We discuss patient's condition and care plan with patient face to face and patient's sister on phone. All questions have been answered. Outpatient Rheumatology followup planning. Total evaluation time in minutes: 33.
[2019-11-05] MEDS ORDERED: HYLENEX SUBQ SCH (18:45)
[2019-11-06] MEDS: SOLU-MEDROL IV SCH ×4 (03:16→20:13)
[2019-11-06] MEDS: ATROVENT NEB INH SCH ×4 (03:40→23:10)
[2019-11-06 04:43] LABS: ALLEN TEST YES; BE 9.2 mmoll (-3.0-3.0); BLOOD TYPE ARTERIAL; METHB 1.1 % (0.0-1.5); O2(CT) 18.5 mL/dL (15.0-23.0); O2HB 94.6 % (95.0-99.0); PCO2(98.6) 50 mmHg (35-45); PO2(98.6) 78 mmHg (60-100); SAMPLE BLOOD; SAO2 97.4 % (95.0-100.0); THB 13.9 g/dL (11.5-17.4); pH(98.6) 7.45 (7.35-7.45)
[2019-11-06 04:48] LABS: MODALITY NRB
--- NOTE | 2019-11-06 06:17 | Diag Imaging Result Doc PS360 ---
EXAM: CHEST-1 VIEW 11/06/2019 HISTORY: SOB TECHNIQUE: AP portable at 0402 COMMENT: There are coarse pulmonary opacities bilaterally particularly in the lung bases. The lungs are less well-expanded than on 10/27/2019 however considering this there has been no appreciable change otherwise. IMPRESSION: Pulmonary fibrosis. Electronically signed by Mauro Bashir 11/06/2019 6:15 AM
[2019-11-06] MEDS: PRILOSEC PO SCH (07:54)
--- NOTE | 2019-11-06 08:34 | PROGRESS NOTE ---
DATE: 11/06/2019 SUBJECTIVE: I have seen and examined Mr. Jaime today. Mr. Jaime refers to be feeling the same. No new complaints. He continues to be on a non-rebreather. OBJECTIVE: Vital signs: Blood pressure is 112/64, pulse of 56, respirations 15, temperature is 98.6 degrees. General exam: Mr. Jaime is a 49-year-old gentleman. He is in bed. HEENT: Mucosa is pink and moist. Anicteric. Acyanotic. Neck: Supple. No JVD. Respiratory System: Air entry is bilaterally equal. There are still some diffuse Velcro crackles in the posterior lung dietz. Cardiovascular: Regular rate and rhythm. No murmurs, no rubs, no gallops. GI/Abdomen: Soft. Bowel sounds present. There is no hepatosplenomegaly and no tenderness. Extremities: No pedal edema. The patient does have clubbing in the hands. The right forearm is slightly swollen. The volar region with mild superficial erythematous changes. Central nervous system: Patient is awake, alert, oriented. There is no focal deficit. The patient's ins and outs: Urine output 950. Continues to be negative balance throughout the hospital course. IMAGING STUDIES: This morning continues to show pulmonary fibrosis. LABORATORY DATA: ABG reviewed. The patient has mild mixed respiratory acidosis with metabolic alkalosis, pH is normal. CURRENT MEDICATIONS: Have all been reviewed and no changes. ASSESSMENT: 1. Acute hypoxemic respiratory failure secondary to idiopathic pulmonary fibrosis exacerbation. Patient continues to be on a non-rebreather. Pulmonary Medicine is on board. We are going to continue to titrate oxygen needs. 2. Atrial fibrillation with rapid ventricular response during the hospital course due to beta agonist therapy. The patient is currently on diltiazem. Heart rate is better controlled. 3. 20 pack-year smoking history with suspicion of underlying chronic obstructive pulmonary disease. Pulmonary Medicine is on board. Patient has been advised to follow up accordingly for outpatient pulmonary function tests. 4. Clubbing secondary to long-standing interstitial lung disease (idiopathic pulmonary fibrosis). 5. Abnormal LAVERNE results with elevated double-stranded DNA and [employer], concerning for possible underlying rheumatological disease. The patient advised to follow up with registered radiation therapist as outpatient. 6. Dyslipidemia. Patient continues to be on statin therapy. PLAN: So, in general, I think Mr. Gilbert remains fairly the same, needing non- rebreather 100% FiO2 15 liters. On that, he seems to be saturating marginally. We will continue with Pulmonary Medicine further recommendations. For now patient continues to be on high dose Solu-Medrol. Because of the underlying suspicion of COPD, we are going to also add a short course of antimicrobial therapy. cc: Michael Chavarria MD MTDD
[2019-11-06] MEDS: ASPIRIN PO SCH (08:51)
[2019-11-06] MEDS: CARDIZEM CD PO SCH (08:51)
[2019-11-06] MEDS: MAXIPIME 2 GM/NS 2 GM/100 ML IVPB IV SCH ×2 (08:51→17:25)
[2019-11-06] MEDS: LIPITOR PO SCH (08:51)
[2019-11-06] MEDS: LOVENOX SUBQ SCH (08:52)
[2019-11-06] MEDS: XOPENEX NEB INH SCH ×3 (09:32→23:10)
[2019-11-06] MEDS: DOXYCYCLINE 100 MG in NS 250 ML IV SCH ×2 (09:41→20:13)
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
[2019-11-07] MEDS: MAXIPIME 2 GM/NS 2 GM/100 ML IVPB IV SCH ×3 (00:32→15:24)
[2019-11-07] MEDS: SOLU-MEDROL IV SCH ×4 (02:02→21:04)
[2019-11-07] MEDS: ATROVENT NEB INH SCH ×4 (03:40→22:30)
[2019-11-07 04:55] LABS: ALLEN TEST YES; BE 6.5 mmoll (-3.0-3.0); BLOOD TYPE ARTERIAL; METHB 0.7 % (0.0-1.5); O2(CT) 20.6 mL/dL (15.0-23.0); O2HB 97.1 % (95.0-99.0); PCO2(98.6) 47 mmHg (35-45); PO2(98.6) 124 mmHg (60-100); SAMPLE BLOOD; SAO2 99.1 % (95.0-100.0); pH(98.6) 7.44 (7.35-7.45)
[2019-11-07 04:56] LABS: MODALITY HIGH FLOW NASAL CAN
[2019-11-07 05:22] LABS: HEMATOCRIT 37.7 % (42.0-52.0); HEMOGLOBIN 12.6 g/dL (14.0-18.0); MCH 27.2 PG (27-31); MCHC 33.4 g/dL (33-37); MCV 81.4 FL (81-99); MPV 9.4 FL (7.4-10.4); RBC 4.63 XMIL (4.7-6.1); RDW 12.6 % (11.5-14.5); WBC 13.39 X1000 (4.8-10.8)
[2019-11-07 05:45] LABS: AGAP 6; ALBUMIN 2.6 g/dL (3.5-5.0); BUN 22 mg/dL (8-22); CALCIUM 8.7 mg/dL (8.8-10.2); CHLORIDE 102 mmol/L (98-107); COSMO 281; CREATININE 0.4 mg/dL (0.7-1.2); ESTIMATED GFR > 60; GLUCOSE 137 mg/dL (70-104); PHOSPHORUS 2.8 mg/dL (2.7-4.5); SODIUM 138 mmol/L (136-145); TCO2 30 mmol/L (25-35)
[2019-11-07] MEDS: PRILOSEC PO SCH (05:59)
--- NOTE | 2019-11-07 06:52 | Diag Imaging Result Doc PS360 ---
CHEST-1 VIEW - 11/07/2019 INDICATION: SOB COMPARISON: 11/06/2019 FINDINGS: Lung volumes are improved but still very low. There are stable extensive bilateral infiltrates, mainly pulmonary fibrosis. Heart size remains borderline enlarged. No pneumothorax or significant pleural effusion. IMPRESSION: No change from prior. Electronically signed by Anjum Lake 11/07/2019 6:50 AM
[2019-11-07] MEDS: CARDIZEM CD PO SCH (08:24)
[2019-11-07] MEDS: LIPITOR PO SCH (08:24)
[2019-11-07] MEDS: ASPIRIN PO SCH (08:24)
[2019-11-07] MEDS: LOVENOX SUBQ SCH (08:24)
[2019-11-07] MEDS: DOXYCYCLINE 100 MG in NS 250 ML IV SCH ×2 (08:25→20:28)
[2019-11-07] MEDS: XOPENEX NEB INH SCH ×3 (09:01→22:30)
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
[2019-11-07] MEDS: SSD CREAM TOP SCH (13:54)
--- NOTE | 2019-11-07 17:56 | PROVIDER PROGRESS NOTE ---
Progress Note Dr. Mosquera Progress Note/Pulmonary and or critical care Subjective: The patient is lying in bed on HFNC 50 L/min 80%. He appears more comfortable than yesterday. He states he is feeling some better. Input was appreciated from Dr. Chavarria and other teams on the case. Objective: Vital Signs: T 97.2(no fever in last 24 hours), ND 92, RR 30, BP 136/72 and SaO2 98% on HFNC 50 L/min 88%. I/O: +120 ml. Physical Examination: General: Lying in bed on HFNC with no acute distress noted. HEENT: Normocephalic. Atraumatic. Trachea midline. Mucosa pink and moist. Oropharynx clear. PERRL. Chest: Tachypnea, but no increased work of breathing or accessory muscle use noted. Symmetrical excursion. Auscultation reveals dry inspiratory crackles bibasilarly anteriorly and posteriorly with improved air entry bilaterally. CVS: S1 and S2 appreciated. Abdomen: Soft. Non-tender. Non-distended. Bowel sounds present in all 4 quadrants. Extremities: No pedal edema. No cyanosis. Clubbing noted. Right upper arm swelling with significant bruise and bullae filling with blooded drainage. Neuro: Alert and oriented x 3. Answer simple questions. Follow simple commands. Labs and Radiology: Laboratory Results 11/07/19 11/07/19 11/07/19 04:38 04:38 04:46 WBC 13.39 H RBC 4.63 L Hgb 12.6 L Hct 37.7 L MCV 81.4 MCH 27.2 MCHC 33.4 RDW Std Deviation 12.6 Plt Count 196 MPV 9.4 Specimen Type ARTERIAL Sample Site R RADIAL pH 7.44 pCO2 47 H pO2 124 H HCO3 30.0 H Base Excess 6.5 H Oxyhemoglobin 97.1 ABG O2 Sat (Calculated) 20.6 ABG O2 Saturation 99.1 ABG Carboxyhemoglobin 1.30 ABG Methemoglobin 0.7 Jhonathan Test YES A-a O2 Difference 459.0 Total Hemoglobin 15.0 Lactate 1.10 Liter Flow 50.0 Blood Gas Modality HIGH FLOW NASAL CAN FiO2 % 90.0 Sodium 138 Potassium 4.0 Chloride 102 Carbon Dioxide 30 Anion Gap 6 BUN 22 Creatinine 0.4 L Estimated GFR/1.73 m2 > 60 BUN/Creatinine Ratio 55 Glucose 137 H Calculated Osmolality 281 Calcium 8.7 L Phosphorus 2.8 Albumin 2.6 L Assessment: Acute respiratory failure. Improving oxygenation with HFNC. Possible left lung multifocal pneumonia. Improved. CXR this morning shows pulmonary fibrosis. Acute exacerbation on advanced pulmonary fibrosis with possible underlying rheumatological disease. COVID-19 test on 10/28/19 is negative. The patients mother had pulmonary fibrosis and required lung transplant. He has prominent clubbing. He has history of 20 pack year smoking history in the past. The results of cystic fibrosis mutation panel are negative. The LAVERNE Screen is positive. ANCA Vasculitis panel is negative. Glomerular Base Membrane IgG is negative. Serum protein electrophoresis shows high Alpha 1, Alpha 2, Beta and Gamma (including elevated IgA and IgG). Elevated inflammatory markers. Transient ischemic attack. Atrial fibrillation with rapid ventricular response. Patient went into atrial fibrillation with rapid ventricular response on 11/02/19. On Cardizem. Under control. Plan: Continue HFNC. We titrated supplemental oxygen to patient's needs per clinical protocol. We will monitor patient's response closely and adjust accordingly. We follow up ABG and CXR tomorrow. Continue Antibiotics including Doxycycline and Cefepime. We will keep monitoring patient's clinical and lab response closely. Continue Steroid. Currently on IV Solu-Medrol 80 mg Q6H. Continue GI and DVT prophylaxis. Continue bronchodilators including Xopenex and Atrovent. We are planning inpatient PFT when patient's respiratory statuebecomes stable. Outpatient Rheumatology followup planning. Total evaluation time in minutes: 34.
[2019-11-08] MEDS: MAXIPIME 2 GM/NS 2 GM/100 ML IVPB IV SCH ×3 (01:13→16:11)
[2019-11-08] MEDS: ATROVENT NEB INH SCH ×4 (03:30→22:55)
[2019-11-08] MEDS: SOLU-MEDROL IV SCH ×4 (04:17→20:47)
[2019-11-08 05:03] LABS: ALLEN TEST YES; BE 5.4 mmoll (-3.0-3.0); BLOOD TYPE ARTERIAL; HCO3-(ACT) 29.1 mmoll (20.0-26.0); METHB 0.4 % (0.0-1.5); O2(CT) 16.9 mL/dL (15.0-23.0); O2HB 97.4 % (95.0-99.0); PCO2(98.6) 46 mmHg (35-45); PO2(98.6) 107 mmHg (60-100); SAMPLE BLOOD; THB 12.2 g/dL (11.5-17.4); pH(98.6) 7.43 (7.35-7.45)
[2019-11-08 05:05] LABS: MODALITY HIGH FLOW NASAL CAN
[2019-11-08] MEDS: PRILOSEC PO SCH (06:03)
[2019-11-08 06:35] LABS: HEMOGLOBIN 12.1 g/dL (14.0-18.0); MCH 27.3 PG (27-31); MCHC 33.6 g/dL (33-37); MCV 81.1 FL (81-99); RBC 4.44 XMIL (4.7-6.1); RDW 12.7 % (11.5-14.5); WBC 15.32 X1000 (4.8-10.8)
[2019-11-08 07:07] LABS: AGAP 9; ALBUMIN 2.7 g/dL (3.5-5.0); BUN 21 mg/dL (8-22); CALCIUM 8.2 mg/dL (8.8-10.2); CHLORIDE 102 mmol/L (98-107); COSMO 280; CREATININE 0.4 mg/dL (0.7-1.2); ESTIMATED GFR > 60; GLUCOSE 114 mg/dL (70-104); PHOSPHORUS 2.6 mg/dL (2.7-4.5); POTASSIUM 4.2 mmol/L (3.5-5.1); SODIUM 138 mmol/L (136-145); TCO2 27 mmol/L (25-35)
--- NOTE | 2019-11-08 07:23 | Diag Imaging Result Doc PS360 ---
EXAM: CHEST-1 VIEW HISTORY: SOB TECHNIQUE: Single view COMPARISON: 11/07/2019 FINDINGS: Poor inspiratory effort. Increased interstitial markings throughout both lungs. Heart is mildly prominent. No pleural effusions identified. IMPRESSION: Persistent bilateral infiltrates with no interval improvement Electronically signed by Adelfo Roldan 11/08/2019 7:21 AM
[2019-11-08] MEDS: XOPENEX NEB INH SCH ×3 (09:00→22:55)
[2019-11-08] MEDS: LIPITOR PO SCH (09:32)
[2019-11-08] MEDS: CARDIZEM CD PO SCH (09:32)
[2019-11-08] MEDS: ASPIRIN PO SCH (09:32)
[2019-11-08] MEDS: LOVENOX SUBQ SCH (09:32)
[2019-11-08] MEDS: DOXYCYCLINE 100 MG in NS 250 ML IV SCH ×2 (09:34→20:47)
[2019-11-08] MEDS: SSD CREAM TOP SCH (09:37)
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
--- NOTE | 2019-11-08 18:41 | PROVIDER PROGRESS NOTE ---
Progress Note ICU7 [place] Jaime 49[address] Dr[address] Mosquera Progress Note/Pulmonary and or critical care Subjective: The patient is lying in bed on NRB 100% at this time. He develops SOB with talking. He is complaining of "bad" nasal congestion. Input was appreciated from Dr. Chavarria and other teams on the case. Objective: Vital Signs: T 97.3(no fever in last 24 hours), MI 60, RR 30, BP 123/65 and SaO2 96% on HFNC 50 L/min 80%. I/O: +240 ml. Physical Examination: General: Lying in bed on HFNC with no acute distress noted. HEENT: Normocephalic. Atraumatic. Trachea midline. Mucosa pink and moist. Oropharynx clear. PERRL.Left noastril filled with dry black draining noted. Chest: Tachypnea. Increased work of breathing, but no accessory muscle use noted. Symmetrical excursion. Auscultation reveals dry inspiratory crackles bibasilarly anteriorly and posteriorly with improved air entry bilaterally. CVS: S1 and S2 appreciated. Abdomen: Soft. Non-tender. Non-distended. Bowel sounds present in all 4 quadrants. Extremities: No pedal edema. No cyanosis. Clubbing noted. Right upper arm swelling with dressing in place. Neuro: Alert and oriented x 3. Answer simple questions. Follow simple commands. Labs and Radiology: Laboratory Results 11/08/19 11/08/19 11/08/19 04:45 04:45 04:53 WBC 15.32 H RBC 4.44 L Hgb 12.1 L Hct 36.0 L MCV 81.1 MCH 27.3 MCHC 33.6 RDW Std Deviation 12.7 Plt Count 184 MPV 10.0 Specimen Type ARTERIAL Sample Site R RADIAL pH 7.43 pCO2 46 H pO2 107 H HCO3 29.1 H Base Excess 5.4 H Oxyhemoglobin 97.4 ABG O2 Sat (Calculated) 16.9 ABG O2 Saturation 99.0 ABG Carboxyhemoglobin 1.10 ABG Methemoglobin 0.4 Jhonathan Test YES A-a O2 Difference 406.0 Total Hemoglobin 12.2 Lactate 1.20 Liter Flow 50.0 Blood Gas Modality HIGH FLOW NASAL CAN FiO2 % 80.0 Sodium 138 Potassium 4.2 Chloride 102 Carbon Dioxide 27 Anion Gap 9 BUN 21 Creatinine 0.4 L Estimated GFR/1.73 m2 > 60 BUN/Creatinine Ratio 53 Glucose 114 H Calculated Osmolality 280 Calcium 8.2 L Phosphorus 2.6 L Albumin 2.7 L Assessment: Acute respiratory failure. Some worsening today. Possible left lung multifocal pneumonia. Improved. CXR this morning shows stable persistent bilateral infiltrates. Acute exacerbation on advanced pulmonary fibrosis with possible underlying rheumatological disease. COVID-19 test on 10/28/19 is negative. The patients mother had pulmonary fibrosis and required lung transplant. He has prominent clubbing. He has history of 20 pack year smoking history in the past. The results of cystic fibrosis mutation panel are negative. The LAVERNE Screen is positive. ANCA Vasculitis panel is negative. Glomerular Base Membrane IgG is negative. Serum protein electrophoresis shows high Alpha 1, Alpha 2, Beta and Gamma (including elevated IgA and IgG). Transient ischemic attack. Atrial fibrillation with rapid ventricular response. Patient went into atrial fibrillation with rapid ventricular response on 11/02/19. On Cardizem. Under control. Worsened leukocytosis likely secondary to IV solu-medrol. Plan: Cycling between HFNC and NRB. We titrated supplemental oxygen to patient's needs per clinical protocol. We will monitor patient's response closely and adjust accordingly. We follow up ABG tomorrow. Continue Antibiotics including Doxycycline and Cefepime. We will keep monitoring patient's clinical and lab response closely. Continue Steroid. Currently on IV Solu-Medrol 80 mg Q6H. Continue GI and DVT prophylaxis. Continue bronchodilators including Xopenex and Atrovent. We are planning inpatient PFT when patient's respiratory statuebecomes stable. Outpatient Rheumatology followup planning. Total evaluation time in minutes: 33.
[2019-11-09] MEDS: MAXIPIME 2 GM/NS 2 GM/100 ML IVPB IV SCH ×4 (00:09→23:10)
[2019-11-09] MEDS: SOLU-MEDROL IV SCH ×4 (03:09→20:23)
[2019-11-09 05:10] LABS: ALLEN TEST YES; BE 4.7 mmoll (-3.0-3.0); BLOOD TYPE ARTERIAL; HCO3-(ACT) 28.6 mmoll (20.0-26.0); O2(CT) 17.2 mL/dL (15.0-23.0); O2HB 96.9 % (95.0-99.0); PCO2(98.6) 42 mmHg (35-45); PO2(98.6) 128 mmHg (60-100); SAMPLE BLOOD; THB 12.5 g/dL (11.5-17.4); pH(98.6) 7.45 (7.35-7.45)
[2019-11-09 05:12] LABS: MODALITY NRB
[2019-11-09 06:20] LABS: BASO# 0.02 X1000 (0.0-0.2); BASO% 0.1 % (0.0-0.8); HEMATOCRIT 36.5 % (42.0-52.0); HEMOGLOBIN 12.2 g/dL (14.0-18.0); IMM GRAN# 0.12 X1000 (0.0-0.04); IMM GRAN% 0.6 % (0.0-0.5); LYMPH# 0.78 X1000 (1.2-3.4); MCH 26.9 PG (27-31); MCHC 33.4 g/dL (33-37); MCV 80.6 FL (81-99); MONO# 0.59 X1000 (0.11-0.59); MONO% 3.1 % (1.7-9.3); MPV 10.4 FL (7.4-10.4); NEUT# 17.77 X1000 (1.4-6.5); NEUT% 92.2 % (42.2-75.2); PLT 175 X1000 (130-400); RBC 4.53 XMIL (4.7-6.1); RDW 12.6 % (11.5-14.5); WBC 19.28 X1000 (4.8-10.8)
[2019-11-09] MEDS: ATROVENT NEB INH SCH ×3 (06:26→16:00)
[2019-11-09 06:42] LABS: SEGS 100 % (42-75)
[2019-11-09 06:52] LABS: AGAP 9; ALBUMIN 2.5 g/dL (3.5-5.0); BUN 22 mg/dL (8-22); CALCIUM 8.3 mg/dL (8.8-10.2); CHLORIDE 106 mmol/L (98-107); COSMO 287; CREATININE 0.4 mg/dL (0.7-1.2); ESTIMATED GFR > 60; GLUCOSE 105 mg/dL (70-104); PHOSPHORUS 2.6 mg/dL (2.7-4.5); POTASSIUM 4.1 mmol/L (3.5-5.1); SODIUM 142 mmol/L (136-145); TCO2 27 mmol/L (25-35)
[2019-11-09] MEDS: PRILOSEC PO SCH (08:12)
[2019-11-09] MEDS: LIPITOR PO SCH (08:37)
[2019-11-09] MEDS: CARDIZEM CD PO SCH (08:37)
[2019-11-09] MEDS: ASPIRIN PO SCH (08:37)
[2019-11-09] MEDS: LOVENOX SUBQ SCH (08:40)
[2019-11-09] MEDS: SSD CREAM TOP SCH (08:41)
[2019-11-09] MEDS ORDERED: ATIVAN IV ONE (09:19)
[2019-11-09] MEDS: DOXYCYCLINE 100 MG in NS 250 ML IV SCH (09:22)
[2019-11-09] MEDS: MORPHINE IV PRN ×2 (09:34→13:53)
[2019-11-09] MEDS: XOPENEX NEB INH SCH ×2 (10:00→16:00)
[2019-11-09] MEDS: HALDOL IV PRN ×2 (10:54→17:10)
[2019-11-09] MEDS ORDERED: AMIDATE ONE (11:18)
[2019-11-09] MEDS ORDERED: QUELICIN ONE (11:19)
[2019-11-09] MEDS ORDERED: AMIDATE IV ONE (11:20)
[2019-11-09] MEDS ORDERED: QUELICIN IV ONE (11:21)
[2019-11-09] MEDS ORDERED: DIPRIVAN 1% 1,000 MG/100 ML BOTTLE IV SCH (11:30)
--- NOTE | 2019-11-09 11:43 | Diag Imaging Result Doc PS360 ---
EXAM: CHEST-1 VIEW - 11/09/2019 HISTORY: worsening SOB TECHNIQUE: Portable one view chest COMPARISON: 11/08/2019 FINDINGS: There has been insertion of an endotracheal tube with its tip approximately 4 cm above the gemini. Heart size appears upper normal. There are bilateral infiltrates which have increased, most conspicuously at the left midlung. There has been development of subcutaneous emphysema at the bilateral supraclavicular/lower neck regions. There has been apparent development of pneumomediastinum. There is a possible tiny pneumothorax at the left apex. IMPRESSION: Tip of endotracheal tube approximately 4 cm above the gemini. Overall increase in bilateral infiltrates, most conspicuously at the mid left lung. Subcutaneous emphysema over upper chest. Apparent pneumomediastinum. Possible tiny left apical pneumothorax. Electronically signed by Augustine Diez 11/09/2019 11:40 AM
[2019-11-09] MEDS: ATIVAN IV PRN ×2 (11:58→16:22)
[2019-11-09] MEDS ORDERED: VANCOMYCIN IV PER PHARMACY MISC SCH (12:15)
[2019-11-09] MEDS ORDERED: LEVOPHED 8 MG in D5 1/2 NS 250 ML IV SCH (12:15)
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
[2019-11-09 12:52] LABS: URINE SOURCE CATH
[2019-11-09 12:56] LABS: BILIRUBIN URINE NEGATIVE (NEGATIVE); BLOOD URINE NEGATIVE (NEGATIVE); COLOR YELLOW; GLUCOSE URINE NEGATIVE (NEGATIVE); KETONE URINE NEGATIVE (NEGATIVE); LEUKOCYTES URINE NEGATIVE (NEGATIVE); NITRITE URINE NEGATIVE (NEGATIVE); PH URINE 6.5; PROTEIN URINE 30 mg/dL (NEGATIVE); TURBIDITY URINE CLEAR (CLEAR); UROBILINOGEN URINE NORMAL (NORMAL)
[2019-11-09 12:58] LABS: UR EPITHELIAL CELLS <10 /HPF (<10); URINE BACTERIA NEGATIVE /HPF; URINE RBC <10 /HPF (<10); URINE WBC <10 /HPF (<10)
[2019-11-09] MEDS: ATIVAN 20 MG in NS 190 ML IV SCH ×3 (13:00→23:11)
[2019-11-09] MEDS ORDERED: VANCOMYCIN 2,000 MG in NS 500 ML IV ONE (13:30)
[2019-11-09 13:58] LABS: ALLEN TEST YES; BE 3.6 mmoll (-3.0-3.0); BLOOD TYPE ARTERIAL; HCO3-(ACT) 27.7 mmoll (20.0-26.0); O2(CT) 16.2 mL/dL (15.0-23.0); O2HB 93.9 % (95.0-99.0); PCO2(98.6) 50 mmHg (35-45); PO2(98.6) 73 mmHg (60-100); SAMPLE BLOOD; SAO2 96.6 % (95.0-100.0); SRATE 16 BPM; THB 12.2 g/dL (11.5-17.4); TVOL 450 mL; pH(98.6) 7.38 (7.35-7.45)
[2019-11-09 13:59] LABS: MODALITY VENTILATOR
--- NOTE | 2019-11-09 16:13 | Diag Imaging Result Doc PS360 ---
EXAM: CHEST-PORTABLE - 11/09/2019 HISTORY: NGT placement TECHNIQUE: Portable exam for nasogastric tube placement COMPARISON: None. FINDINGS: The tip of the nasogastric tube is at the expected location of the mid esophagus slightly below the level of the gemini. IMPRESSION: Tip of nasogastric tube in mid esophagus. The tube should be advanced about 15-20 cm for more optimal positioning. Electronically signed by Augustine Diez 11/09/2019 4:11 PM
--- NOTE | 2019-11-09 17:22 | GENERAL SURGERY CONSULTATION ---
DATE: 11/09/2019 REASON FOR CONSULTATION: Pneumothorax and pneumomediastinum. HISTORY OF PRESENT ILLNESS: This is a 49-year-old male who presented to the hospital on 10/27/2019 with slurred speech and right upper extremity weakness. He has been diagnosed with a TIA. In the meantime, he has developed respiratory failure. He has a history of pulmonary fibrosis. He was intubated a few hours ago secondary to worsening respiratory failure and shortness of breath. Subsequent x-ray revealed pneumomediastinum, subcutaneous emphysema, and possible pneumothorax on the left. I was consulted for further evaluation. The history is all reviewed from the chart as the patient is unable to converse with me. He is on an Ativan drip. He is somewhat combative. I could not find any evidence of recent retching, vomiting, or chest pain. PAST MEDICAL HISTORY: As described above in the HPI. PAST SURGICAL HISTORY: Left elbow surgery. ALLERGIES: No known drug allergies. SOCIAL HISTORY: Apparently no history of smoking, alcohol, or drug abuse. However, on other physicians' notes, he was noted to quit smoking 9 years ago. FAMILY HISTORY: Notable for his mother dying of pulmonary cystic fibrosis in 2006, underwent a lung transplant in [place]. REVIEW OF SYSTEMS: Unobtainable. CURRENT MEDICATIONS: Aspirin, Lipitor, Maxipime, Cardizem, Lovenox, Haldol, Atrovent, Xopenex, Ativan, Solu-Medrol, vancomycin, norepinephrine, Prilosec. PHYSICAL EXAMINATION: Vital Signs: Temperature 97.8 degrees, pulse 100, respirations 26, blood pressure 127/80, O2 saturation 94%. General: Ill-appearing male, somewhat combative and agitated. HEENT: Normocephalic, atraumatic. Neck: Supple. No thyromegaly. Lymph: No cervical, supraclavicular, or periumbilical lymph nodes appreciated. Respiratory: Coarse bilateral breath sounds. He is intubated. I do note bilateral upper chest subcutaneous emphysema. GI: Soft, nontender. No organomegaly or mass. Extremities: No clubbing, cyanosis, or edema. Skin: Warm and dry. No rash. LABORATORY DATA: White blood cell count 19, hemoglobin 12, hematocrit 36, platelet count 175,000. PH 7.38, pCO2 of 50 PaO2 of 73, bicarb 27.7, base excess 3.6. Electrolytes reviewed and unremarkable. Albumin is 2.5, however. IMAGING: A chest x-ray this morning revealed an endotracheal tube above the gemini, increased bilateral infiltrates, subcutaneous emphysema, apparent pneumomediastinum, and possible left apical pneumothorax. ASSESSMENT AND PLAN: A 49-year-old male with progressive respiratory failure and a history of pulmonary fibrosis, now with pneumomediastinum, subcutaneous emphysema, and possible pneumothorax. The etiology is likely due to his progressive pneumonia and respiratory fibrosis rather than esophageal tear. However, I am unable to get a history from him that is reliable. I will obtain a CT scan of the chest to include oral contrast through an nasogastric tube, both to assess for any esophageal extravasation and also for pneumothorax as far as degree of pneumothorax and location, which help me decide on placing a chest tube or not. cc: Hayder Oneal MD
--- NOTE | 2019-11-09 17:23 | Diag Imaging Result Doc PS360 ---
EXAM: CT THORAX W/WO CONTRAST - 11/09/2019 HISTORY: new pneumothorax and pneumomediastinum TECHNIQUE: CT thorax without and with oral contrast. Images are obtained prior to and following intravenous contrast administration. There is oral contrast administered via the nasogastric tube, the tip of which is located in the midesophagus. COMPARISON: 11/09/2019 portable chest radiograph FINDINGS: The administered oral contrast is located in the mid and distal esophagus in the stomach. There is no evidence of extravasation of oral contrast into the mediastinum. There is no abnormal fluid identified in the mediastinum. There is pneumomediastinum. There is subcutaneous emphysema. There is no substantial pneumothorax identified which is distinguishable from the pneumomediastinum. There are bilateral infiltrates which are most prominent at the left lower lobe, superior segment right lower lobe, and bilateral posterior upper lobes. There is interstitial fibrosis with honeycombing/bleb formation, most prominent on the right. There is no substantial pleural effusion. IMPRESSION: No evidence of esophageal rupture. Pneumomediastinum. Subcutaneous edema. No substantial pneumothorax. Pulmonary fibrosis with honeycombing/bleb formation, most prominent on the right. Infiltrates which are most prominent at the left lower lobe, superior segment right lower lobe, and bilateral posterior upper lobes. Considerations include pneumonia, pulmonary edema, adult respiratory distress syndrome. This exam was performed using automated exposure control, adjustment of mA or kV according to patient size, and/or use of iterative reconstruction technique. Electronically signed by Augustine Diez 11/09/2019 5:20 PM
--- NOTE | 2019-11-09 17:28 | Diag Imaging Result Doc PS360 ---
EXAM: CHEST-PORTABLE - 11/09/2019 HISTORY: NGT placement TECHNIQUE: Portable exam for nasogastric tube placement COMPARISON: Prior exam of 11/09/2019 FINDINGS: The nasogastric tube is been advanced, with its tip now located at the proximal to mid stomach. IMPRESSION: Nasogastric tube tip in proximal to mid stomach. Electronically signed by Augustine Diez 11/09/2019 5:26 PM
--- NOTE | 2019-11-09 18:00 | PROVIDER PROGRESS NOTE ---
Progress Note Dr. Mosquera Progress Note/Pulmonary and or critical care Subjective: The patient was put on BiPAP at an earlier time. During my encounter, he keeps pulling BiPAP mask off with SaO2 dropping down to 70s. His RR goes up to 50s. His face turned blue. At that time, he is definitely anxious, but still communicative. He agrees with intubation if needed. I asked RN to give him Haldol 5mg. Unfortunatly, later when I am seeing the other patient in the next room, he becomes wild. He pulls everything off and states "I have enough". As we try to calm him down, he starts fight and loses bowel control. We eventually intubate him in emergency by Dr. Velasquez. Input was appreciated from Dr. Chavarria and other teams on the case. Objective: Vital Signs: T 98.8(no fever in last 24 hours), AK 63, RR 30, BP 118/63 and SaO2 90% on NRB 100%. I/O: -220 ml. Physical Examination: General: On BiPAP mask. Anxious and restless. Tachycardia and tachypnea. HEENT: Normocephalic. Atraumatic. Trachea midline. Mucosa pink and moist. Chest: Tachypnea. Increased work of breathing, but no accessory muscle use noted. Symmetrical excursion. Auscultation reveals dry inspiratory crackles bibasilarly anteriorly and posteriorly with improved air entry bilaterally. CVS: Tachycardia. S1 and S2 appreciated. Abdomen: Soft. Non-tender. Non-distended. Bowel sounds present in all 4 quadrants. Extremities: No pedal edema. No cyanosis. Clubbing noted. Right forearm swelling with dressing in place. Big bruise on the right upper arm. Neuro: Significantly anxious, but A/O x 3. Answer simple questions. Not follow simple commands. Labs and Radiology: Laboratory Results 11/09/19 11/09/19 11/09/19 04:10 04:30 04:30 WBC 19.28 H RBC 4.53 L Hgb 12.2 L Hct 36.5 L MCV 80.6 L MCH 26.9 L MCHC 33.4 RDW Std Deviation 12.6 Plt Count 175 MPV 10.4 Immature Gran % (Auto) 0.6 H Neut % (Auto) 92.2 H Lymph % (Auto) 4.0 L Josephine % (Auto) 3.1 Eos % (Auto) 0.0 Baso % (Auto) 0.1 Immature Gran # (Auto) 0.12 H Neut # (Auto) 17.77 H Lymph # (Auto) 0.78 L Josephine # (Auto) 0.59 Eos # (Auto) 0.00 Baso # (Auto) 0.02 Segmented Neutrophils 100 H Specimen Type ARTERIAL Sample Site R RADIAL pH 7.45 pCO2 42 pO2 128 H HCO3 28.6 H Base Excess 4.7 H Oxyhemoglobin 96.9 ABG O2 Sat (Calculated) 17.2 ABG O2 Saturation 99.0 ABG Carboxyhemoglobin 1.10 ABG Methemoglobin 1.0 Jhonathan Test YES A-a O2 Difference 533.0 Total Hemoglobin 12.5 Lactate 1.40 Liter Flow 15.0 Blood Gas Modality NRB Vent Mode Spontaneous Rate FiO2 % 100.0 Tidal Volume PEEP Sodium 142 Potassium 4.1 Chloride 106 Carbon Dioxide 27 Anion Gap 9 BUN 22 Creatinine 0.4 L Estimated GFR/1.73 m2 > 60 BUN/Creatinine Ratio 55 Glucose 105 H Calculated Osmolality 287 Calcium 8.3 L Phosphorus 2.6 L Albumin 2.5 L Urine Source Urine Color Urine Turbidity Urine pH Ur Specific Garrison Urine Protein Ur Glucose (Stick) Ur Ketones (Stick) Urine Blood Urine Nitrite Urine Bilirubin Urobilinogen Dipstick Urine Leukocytes Urine WBC (Auto) Urine RBC (Auto) U Epithel Cells (Auto) Urine Bacteria (Auto) 11/09/19 11/09/19 11:57 13:45 WBC RBC Hgb Hct MCV MCH MCHC RDW Std Deviation Plt Count MPV Immature Gran % (Auto) Neut % (Auto) Lymph % (Auto) Josephine % (Auto) Eos % (Auto) Baso % (Auto) Immature Gran # (Auto) Neut # (Auto) Lymph # (Auto) Josephine # (Auto) Eos # (Auto) Baso # (Auto) Segmented Neutrophils Specimen Type ARTERIAL Sample Site L RADIAL pH 7.38 pCO2 50 H pO2 73 HCO3 27.7 H Base Excess 3.6 H Oxyhemoglobin 93.9 L ABG O2 Sat (Calculated) 16.2 ABG O2 Saturation 96.6 ABG Carboxyhemoglobin 1.80 ABG Methemoglobin 1.0 Jhonathan Test YES A-a O2 Difference 578.0 Total Hemoglobin 12.2 Lactate 1.40 Liter Flow Blood Gas Modality VENTILATOR Vent Mode A/C Spontaneous Rate 16 FiO2 % 100.0 Tidal Volume 450 PEEP 5.0 Sodium Potassium Chloride Carbon Dioxide Anion Gap BUN Creatinine Estimated GFR/1.73 m2 BUN/Creatinine Ratio Glucose Calculated Osmolality Calcium Phosphorus Albumin Urine Source CATH Urine Color YELLOW Urine Turbidity CLEAR Urine pH 6.5 Ur Specific Garrison 1.030 Urine Protein 30 A Ur Glucose (Stick) NEGATIVE Ur Ketones (Stick) NEGATIVE Urine Blood NEGATIVE Urine Nitrite NEGATIVE Urine Bilirubin NEGATIVE Urobilinogen Dipstick NORMAL Urine Leukocytes NEGATIVE Urine WBC (Auto) <10 Urine RBC (Auto) <10 U Epithel Cells (Auto) <10 Urine Bacteria (Auto) NEGATIVE Assessment: Acute respiratory failure. Worsening. Requires emergent intubation today. Possible pneumonia vs. pulmonary edema vs. ARDS. Acute exacerbation on advanced pulmonary fibrosis with possible underlying rheumatological disease. COVID-19 test on 10/28/19 is negative. The patients mother had pulmonary fibrosis and required lung transplant. He has prominent clubbing. He has history of 20 pack year smoking history in the past. The results of cystic fibrosis mutation panel are negative. The LAVERNE Screen is positive. ANCA Vasculitis panel is negative. Glomerular Base Membrane IgG is negative. Serum protein electrophoresis shows high Alpha 1, Alpha 2, Beta and Gamma (including elevated IgA and IgG). Pneumomediastinum and subcutaneous edema. Possible tiny left apical pneumothorax. Transient ischemic attack. Resolved. Atrial fibrillation with rapid ventricular response. Worsened leukocytosis likely or at least partially secondary to IV solu-medrol. Prognosis guarded. Plan: Intubation stat. We titrated ventilator settings to patient's needs per clinical protocols. We will monitor patient's response closely. We follow up ABG tomorrow. We initially start sedation with Diprivan drip. Later we switch it to Ativan secondary to shock. We titrated sedative to patient's needs per clinical protocols. We will monitor patient's response closely. We monitor patient's blood pressure closely. If indicated, we will start Norepinephrine. Continue Antibiotic Cefepime. Doxycycline is switched to Vancomycin today. We will keep monitoring patient's clinical and lab response closely. Continue Steroid. Currently on IV Solu-Medrol 80 mg Q6H. Continue GI and DVT prophylaxis. Continue bronchodilators including Xopenex and Atrovent. Outpatient Rheumatology followup planning. Total evaluation time in minutes: 35.
[2019-11-10] MEDS: ATROVENT NEB INH SCH ×7 (00:46→21:49)
[2019-11-10] MEDS: XOPENEX NEB INH SCH ×4 (00:46→21:49)
[2019-11-10] MEDS ORDERED: CARDIZEM CD PO ONE (01:01)
[2019-11-10] MEDS: ATIVAN 20 MG in NS 190 ML IV SCH ×4 (02:13→10:35)
[2019-11-10] MEDS: SOLU-MEDROL IV SCH ×4 (02:14→21:39)
[2019-11-10] MEDS: VANCOMYCIN 1,700 MG in NS 250 ML IV SCH ×2 (02:14→14:48)
[2019-11-10] MEDS: CARDIZEM PO SCH ×2 (02:17→13:06)
[2019-11-10] MEDS: ATIVAN IV PRN ×3 (03:48→07:45)
[2019-11-10 04:53] LABS: ALLEN TEST YES; BE 4.4 mmoll (-3.0-3.0); BLOOD TYPE ARTERIAL; HCO3-(ACT) 28.4 mmoll (20.0-26.0); METHB 0.5 % (0.0-1.5); O2(CT) 16.8 mL/dL (15.0-23.0); O2HB 97.1 % (95.0-99.0); PCO2(98.6) 50 mmHg (35-45); PO2(98.6) 100 mmHg (60-100); SAMPLE BLOOD; SAO2 100.6 % (95.0-100.0); SRATE 16 BPM; THB 12.2 g/dL (11.5-17.4); TVOL 450 mL; pH(98.6) 7.39 (7.35-7.45)
[2019-11-10 04:54] LABS: MODALITY VENTILATOR
[2019-11-10 06:23] LABS: AGAP 7; BUN 17 mg/dL (8-22); CALCIUM 7.9 mg/dL (8.8-10.2); CHLORIDE 105 mmol/L (98-107); COSMO 281; CREATININE 0.3 mg/dL (0.7-1.2); ESTIMATED GFR > 60; GLUCOSE 102 mg/dL (70-104); POTASSIUM 3.8 mmol/L (3.5-5.1); SODIUM 140 mmol/L (136-145); TCO2 28 mmol/L (25-35)
[2019-11-10 06:31] LABS: BASO# 0.01 X1000 (0.0-0.2); BASO% 0.1 % (0.0-0.8); EOS# 0.13 X1000 (0.0-0.7); EOS% 0.9 % (0.0-10.0); HEMATOCRIT 36.6 % (42.0-52.0); HEMOGLOBIN 12.1 g/dL (14.0-18.0); LYMPH# 0.32 X1000 (1.2-3.4); LYMPH% 2.2 % (20.5-51.1); MCH 27.3 PG (27-31); MCHC 33.1 g/dL (33-37); MCV 82.4 FL (81-99); MONO# 0.66 X1000 (0.11-0.59); MONO% 4.6 % (1.7-9.3); MPV 10.4 FL (7.4-10.4); NEUT# 13.11 X1000 (1.4-6.5); NEUT% 92.2 % (42.2-75.2); PLT 104 X1000 (130-400); RBC 4.44 XMIL (4.7-6.1); RDW 13.2 % (11.5-14.5); WBC 14.23 X1000 (4.8-10.8)
[2019-11-10] MEDS: PRILOSEC PO SCH (06:47)
--- NOTE | 2019-11-10 07:25 | Diag Imaging Result Doc PS360 ---
EXAM: CHEST-1 VIEW INDICATION: SOB TECHNIQUE: One view COMPARISON: 11/09/2019 FINDINGS: Support tubes and lines are in stable positions. Extensive airspace infiltrates bilaterally are grossly unchanged. No new consolidation is identified. Cardiac silhouette is stable. IMPRESSION: Stable chest. Electronically signed by Derik Tim 11/10/2019 7:23 AM
[2019-11-10] MEDS: MAXIPIME 2 GM/NS 2 GM/100 ML IVPB IV SCH ×2 (07:45→15:49)
[2019-11-10] MEDS: SSD CREAM TOP SCH (08:09)
[2019-11-10] MEDS: ASPIRIN PO SCH (08:13)
[2019-11-10] MEDS: LIPITOR PO SCH (08:13)
[2019-11-10] MEDS: LOVENOX SUBQ SCH (08:13)
[2019-11-10] MEDS: HALDOL IV PRN (11:21)
--- NOTE | 2019-11-10 12:14 | PROGRESS NOTE ---
DATE: 11/10/2019 SUBJECTIVE: I have seen and examined Mr. Jaime today. Mr. Jaime continues to be intubated. He is currently sedated on Ativan. However, he continues to breathe far way more above the ventilator. OBJECTIVE: Current Vital Signs: Blood pressure 136/71, pulse of 75, respirations are 26, temperature is 98.2 degrees, patient is saturating 91% on a mechanical ventilator. General Examination: Mr. Jaime is a 49-year-old, gentleman. He is in bed. He is currently intubated and sedated on Ativan. HEENT: Mucosa is pink and moist. Anicteric. Acyanotic. Neck: Supple. Chest: Air entry is bilaterally reduced. There is still some diffuse end-inspiratory Velcro crackles in both lung dietz. Cardiovascular: Tachycardic but no murmurs, no rubs, no gallops. GI: Abdomen is soft. Bowel sounds present. No hepatosplenomegaly felt. Extremities: No pedal edema. On the left forearm, there is skin erosion associated with some blebs and erythematous changes. There is a Guzman catheter in place. SUSTAINABILITY COMMUNICATOR: The patient is currently sedated. Pupils are reactive to light. The patient has a good gag reflex. Is and Os: Urine output was 1140. The patient is currently negative balance of 1322. Diagnostic Studies: A CT scan of the chest which was done yesterday showed no evidence of esophageal rupture. There was a pneumomediastinum, subcutaneous edema. No substantial pneumothorax. There is also fibrosis with honeycombing. A chest x-ray this morning shows extensive airspace infiltrate bilaterally, grossly unchanged. ASSESSMENT: 1. Acute hypoxemic respiratory failure secondary to idiopathic pulmonary fibrosis exacerbation. Mr. Jaime was initially on supplemental oxygen via Venturi mask and nonrebreather. Unfortunately, his oxygen demand continues to get worse. He was on BiPAP up until yesterday. He continues to be extremely hypoxemic so he was ultimately intubated yesterday. 2. Transient episode of atrial fibrillation during the hospital course, resolved. 3. History of 20 pack year history with suspicion of underlying chronic obstructive pulmonary disease. 4. Clubbing secondary to long-standing interstitial lung disease. 5. Abnormal LAVERNE testing, concerning for underlying rheumatological disease. Patient advised to follow up with rheumatology outpatient. 6. Dyslipidemia. 7. Left forearm chemical granger with surrounding cellulitis. Patient is on antimicrobial coverage. Wound care nurse is on board. 8. Mild subcutaneous emphysema with pneumomediastinum, stable. Patient is being followed also by general surgery. Xrays today seems to have resolved. PLAN: In general, Mr. Jaime is a 49-year-old, male who has been in the hospital for the past 14 days. Initially, he did present because of generalized weakness and some shortness of breath. He was found to be in respiratory failure, was admitted to the [facility]. Started on supplemental oxygen, antibiotics, steroids. Unfortunately, during the hospital course, his oxygen demand continues to increase. He was switched to BiPAP and ultimately got intubated yesterday. Currently remains on the ventilator but he is breathing way far above. He looks quite uncomfortable. He is maxed out on Ativan drip so I have discussed with Dr. Mosquera and we are going to switch him to propofol to achieve better sedation. Mr. Jaime's disposition is going to depend on the rest of his hospital course. He obviously continues to be extremely critically sick. We will continue with the current antimicrobial coverage including vancomycin and cefepime, and will follow up with further recommendations from the subspecialties involved with his care. Mr. Jaime is being seen by pulmonary medicine, surgery, and cardiology. We appreciate their input. COVID test negative. Critical time spent is 45 minutes. cc: MD DARNELL Mcelroy
[2019-11-10] MEDS: DIPRIVAN 1% 1,000 MG/100 ML BOTTLE IV SCH ×2 (13:01→15:49)
--- NOTE | 2019-11-10 13:19 | GENERAL SURGERY PROGRESS NOTE ---
DATE: 11/10/2019 SUBJECTIVE: The patient has had no acute events overnight. He remains intubated and sedated. OBJECTIVE: Vital Signs: He is afebrile, pulse 75 to 99, blood pressure 136/71, O2 saturation 91% on 100% oxygen. CV: Regular rate and rhythm. Skin: The upper chest was examined. There is no discernible crepitus today. Respiratory: Coarse bilateral breath sounds. IMAGIN. The chest x-ray shows no discernible pneumothorax. I cannot discern any subcutaneous emphysema. He continues to have extensive airspace infiltrates bilaterally. I do not discern any significant pneumomediastinum today. 2. CT of the chest from yesterday was reviewed, and it showed no evidence of esophageal rupture. There are bilateral infiltrates with interstitial fibrosis. However, there is no substantial pneumothorax. There is pneumomediastinum and subcutaneous emphysema. ASSESSMENT AND PLAN: A 49-year-old male with respiratory failure, pulmonary fibrosis, pneumomediastinum, and subcutaneous emphysema. The pneumomediastinum and emphysema appear to be improved. There is no discernible pneumothorax. We will continue observation and supportive care. No indication for chest tube at this time. cc: Hayder Oneal MD
--- NOTE | 2019-11-10 16:09 | PROVIDER PROGRESS NOTE ---
Progress Note Dr. Mosquera Progress Note/Pulmonary and or critical care Subjective: The patient remains intubated. The sedative has been switched from Ativan to Diprivan per Dr. Chavarria at an earlier time for better sedation. Patient's blood pressure is stable and within normal range at thist chanel. Input was appreciated from Dr. Chavarria and other teams on the case. Objective: Vital Signs: No fever in last 24 hours, [place] 75, RR 26, BP 136/71 and SaO2 91% on AC 16, 100%, 450, 5. I/O: +60 ml. Physical Examination: General: Lying in bed on Ventilator with no acute distress noted. HEENT: Normocephalic. Atraumatic. Trachea midline. Mucosa pink and moist. PERRL. Chest: Tachypnea. Symmetrical excursion. Auscultation reveals dry inspiratory crackles bibasilarly anteriorly and posteriorly with decreased air entry bilaterally. CVS: S1 and S2 appreciated. Abdomen: Soft. Non-tender. Non-distended. Bowel sounds present in all 4 quadrants. Extremities: No pedal edema. No cyanosis. Clubbing noted. Right upper arm swelling with dressing in place. Neuro: Sedated. Labs and Radiology: Laboratory Results 11/10/19 11/10/19 11/10/19 04:42 05:30 05:30 WBC 14.23 H RBC 4.44 L Hgb 12.1 L Hct 36.6 L MCV 82.4 MCH 27.3 MCHC 33.1 RDW Std Deviation 13.2 Plt Count 104 L D MPV 10.4 Neut % (Auto) 92.2 H Lymph % (Auto) 2.2 L Russell % (Auto) 4.6 Eos % (Auto) 0.9 Baso % (Auto) 0.1 Neut # (Auto) 13.11 H Lymph # (Auto) 0.32 L Russell # (Auto) 0.66 H Eos # (Auto) 0.13 Baso # (Auto) 0.01 Specimen Type ARTERIAL Sample Site R RADIAL pH 7.39 pCO2 50 H pO2 100 HCO3 28.4 H Base Excess 4.4 H Oxyhemoglobin 97.1 ABG O2 Sat (Calculated) 16.8 ABG O2 Saturation 100.6 H ABG Carboxyhemoglobin 3.00 H ABG Methemoglobin 0.5 Jhonathan Test YES A-a O2 Difference 551.0 Total Hemoglobin 12.2 Lactate 1.60 Blood Gas Modality VENTILATOR Spontaneous Rate 16 FiO2 % 100.0 Tidal Volume 450 PEEP 5.0 Sodium 140 Potassium 3.8 Chloride 105 Carbon Dioxide 28 Anion Gap 7 BUN 17 Creatinine 0.3 L Estimated GFR/1.73 m2 > 60 BUN/Creatinine Ratio 57 Glucose 102 Calculated Osmolality 281 Calcium 7.9 L Assessment: Acute respiratory failure. Intubated on 11/09/19. Possible pneumonia vs. pulmonary edema vs. ARDS. CXR this morning shows stable extensive airspace infiltrates bilaterally. Acute exacerbation on advanced pulmonary fibrosis with possible underlying rheumatological disease. COVID-19 test on 10/28/19 is negative. The patients mother had pulmonary fibrosis and required lung transplant. He has prominent clubbing. He has history of 20 pack year smoking history in the past. The results of cystic fibrosis mutation panel are negative. The LAVERNE Screen is positive. ANCA Vasculitis panel is negative. Glomerular Base Membrane IgG is negative. Serum protein electrophoresis shows high Alpha 1, Alpha 2, Beta and Gamma (including elevated IgA and IgG). Pneumomediastinum and subcutaneous edema. General Surgery on board. Transient ischemic attack. Resolved. Atrial fibrillation with rapid ventricular response. Patient went into atrial fibrillation with rapid ventricular response on 11/02/19. On Cardizem. Under control. Worsened leukocytosis likely or at least partially secondary to IV solu-medrol. Prognosis guarded. Plan: Continue full ventilatory support. We titrated ventilator settings to patients needs per clinical protocols. We will monitor patients response closely. We follow up ABG tomorrow. We titrated sedative (Diprivan drip) to patients needs per clinical protocols. We will monitor patients response closely. Continue Antibiotics including Cefepime and Vancomycin. We will keep monitoring patient's clinical and lab response closely. Continue IV Solu-Medrol 80 mg Q6H. Continue GI and DVT prophylaxis. Continue bronchodilators including Xopenex and Atrovent. Outpatient Rheumatology followup planning. Total evaluation time in minutes: 34.
[2019-11-11] MEDS: DIPRIVAN 1% 1,000 MG/100 ML BOTTLE IV SCH ×5 (00:16→22:56)
[2019-11-11] MEDS: MAXIPIME 2 GM/NS 2 GM/100 ML IVPB IV SCH ×4 (00:16→23:59)
[2019-11-11] MEDS: VANCOMYCIN 1,700 MG in NS 250 ML IV SCH ×2 (02:45→14:00)
[2019-11-11] MEDS: CARDIZEM PO SCH (03:01)
[2019-11-11] MEDS: SOLU-MEDROL IV SCH ×4 (03:01→21:00)
[2019-11-11] MEDS: XOPENEX NEB INH PRN (04:09)
[2019-11-11 04:41] LABS: ALLEN TEST YES; BE 6.9 mmoll (-3.0-3.0); BLOOD TYPE ARTERIAL; HCO3-(ACT) 30.3 mmoll (20.0-26.0); METHB 0.8 % (0.0-1.5); O2(CT) 15.9 mL/dL (15.0-23.0); O2HB 96.5 % (95.0-99.0); PO2(98.6) 95 mmHg (60-100); SAMPLE BLOOD; SAO2 98.8 % (95.0-100.0); SRATE 20 BPM; THB 11.6 g/dL (11.5-17.4); TVOL 450 mL; pH(98.6) 7.34 (7.35-7.45)
[2019-11-11 04:42] LABS: MODALITY VENTILATOR
[2019-11-11 04:43] LABS: PCO2(98.6) 64 mmHg (35-45)
[2019-11-11 06:00] LABS: BASO# 0.03 X1000 (0.0-0.2); BASO% 0.3 % (0.0-0.8); HEMATOCRIT 34.4 % (42.0-52.0); HEMOGLOBIN 10.9 g/dL (14.0-18.0); IMM GRAN# 0.12 X1000 (0.0-0.04); LYMPH# 0.49 X1000 (1.2-3.4); LYMPH% 4.2 % (20.5-51.1); MCH 26.7 PG (27-31); MCHC 31.7 g/dL (33-37); MCV 84.1 FL (81-99); MONO# 0.49 X1000 (0.11-0.59); MONO% 4.2 % (1.7-9.3); MPV 10.4 FL (7.4-10.4); NEUT# 10.47 X1000 (1.4-6.5); NEUT% 90.3 % (42.2-75.2); PLT 77 X1000 (130-400); RBC 4.09 XMIL (4.7-6.1); RDW 13.3 % (11.5-14.5)
[2019-11-11 06:16] LABS: AGAP 4; BUN 25 mg/dL (8-22); CALCIUM 8.1 mg/dL (8.8-10.2); CHLORIDE 109 mmol/L (98-107); COSMO 295; CREATININE 0.3 mg/dL (0.7-1.2); ESTIMATED GFR > 60; GLUCOSE 129 mg/dL (70-104); POTASSIUM 4.2 mmol/L (3.5-5.1); SODIUM 145 mmol/L (136-145); TCO2 32 mmol/L (25-35)
[2019-11-11] MEDS: PRILOSEC PO SCH (06:35)
--- NOTE | 2019-11-11 06:35 | Diag Imaging Result Doc PS360 ---
EXAM: CHEST-1 VIEW HISTORY: SOB TECHNIQUE: Single view COMPARISON: 11/10/2019 FINDINGS: No change in the endotracheal tube or nasogastric tube. There are diffuse bilateral infiltrates with air bronchograms. No cardiomegaly. No pleural effusions identified. IMPRESSION: No interval improvement Electronically signed by Adelfo Roldan 11/11/2019 6:32 AM
[2019-11-11 07:19] LABS: ALB/GLOB RATIO 0.8; ALBUMIN 2.2 g/dL (3.5-5.0); DIRECT BILIRUBIN 0.1 mg/dL (0.00-0.20); TOTAL BILIRUBIN 0.41 mg/dL (0.20-1.00)
[2019-11-11 07:41] LABS: LYMPHS 4 % (21-51); SEGS 94 % (42-75)
[2019-11-11] MEDS: SSD CREAM TOP SCH (08:29)
[2019-11-11] MEDS: LIPITOR PO SCH (08:29)
--- NOTE | 2019-11-11 08:43 | PROGRESS NOTE ---
DATE: 11/11/2019 INTERVAL HISTORY: Overnight, Mr. Jaime's sedation was changed from intravenous lorazepam to intravenous propofol, following which he was more comfortable according to nursing report. He has been bradycardic with a heart rate in the 40s but normotensive. He had developed thrombocytopenia for which his aspirin and Lovenox had been stopped. SUBJECTIVE: Mr. Jaime remains intubated and sedated. VITALS: Temperature 97.4 degrees, pulse 48, respiratory rate 13, blood pressure 124/58, he is saturating 94% on 100% mechanical ventilation. PHYSICAL EXAMINATION: He is not in any acute distress at the moment. His oral cavity is dry. Lungs: Air entry bilaterally equal. No wheeze or rhonchi. He has diffuse crackles in bilateral lung dietz. S1, S2 normal. Bradycardic. No murmur, rub, or gallop. Abdomen: Soft, nontender. He does not have any lower extremity edema. He has an endotracheal tube. He has a nasogastric tube. He has a urine catheter. While suctioning, he moves all extremities in distress. He has occasional blood coming out at the time of deep suctioning. LABS: Suggestive WBC 11.6, hemoglobin 10.9, platelets 77,000. His pH is 7.34, pCO2 is 64. He is on 100% ventilator. His BUN is 25, creatinine 0.3. His proBNP is 664. IMAGING: Chest x-ray this morning suggests no interval improvement. ASSESSMENT AND PLAN: 1. Acute hypoxic respiratory failure due to likely acute exacerbation of idiopathic pulmonary fibrosis. The patient remains hypoxic throughout the hospitalization and was intubated on November 08. Continue mechanical ventilation with sedation as per pulmonology recommendation. Unfortunately, he is becoming bradycardic on propofol. I will continue proton pump inhibitors for stress ulcer prophylaxis, Peridex for ventilator-associated pneumonia prophylaxis. I will start pneumatic compression devices for deep venous thrombosis prophylaxis and hold enoxaparin for now. 2. Atrial fibrillation with rapid ventricular response during this hospital admission. Currently, he appears to be in normal sinus rhythm. I will follow up with electrocardiogram to document current rhythm, which appears normal sinus on the monitor. 3. Previous history of 20 pack-year tobacco smoking with suspicion of underlying chronic obstructive pulmonary disease. Continue inhaled bronchodilators with levalbuterol and ipratropium, intravenous methylprednisolone, and mechanical ventilation. 4. Suspected bilateral pneumonia. He has been on intravenous antibiotics, which I will continue with vancomycin and cefepime. 5. Left forearm chemical granger with surrounding cellulitis. Continue intravenous antibiotics and topical silver sulfadiazine cream. Appreciate wound nurse recommendation. 6. Mild subcutaneous emphysema with pneumomediastinum. Currently stable. According to general surgery, supportive and observation are recommended without any need for chest tube at the moment. 7. Thrombocytopenia. I am holding his enoxaparin and aspirin at the moment. He also had a gastrointestinal bleed on nasogastric tube suctioning which was minimal. Once his platelet count stops dropping, I will resume anticoagulation. 8. Disposition. Forty minutes of critical care time were spent in taking care of this patient. Unfortunately, Mr. Jaime has not improved since his hospital admission about 2 weeks ago and remains hypoxic. His condition is critical and prognosis is guarded. I will reach out to his sister later in the day and update her about the course after a discussion with pulmonology. Plan of care discussed with the nursing team. I will start him on tube feeds for enteral nutrition. cc: Howard Schulte MD
--- NOTE | 2019-11-11 09:35 | EKG Report ---
Test Performed on : 11/11/2019 08:44:58 AM Test Reason : Bradycardia Blood Pressure : / mmHG Vent. Rate : 041 BPM Atrial Rate : 041 BPM P-R Int : 152 ms QRS Dur : 100 ms QT Int : 544 ms P-R-T Axes : 007 029 018 degrees QTc Int : 448 ms Marked sinus bradycardia. Abnormal ECG When compared with ECG of 04-NOV-2019 04:00, premature supraventricular complexes. are no longer present ST no longer elevated in Inferior leads Confirmed by Silverio HUERTA, Jhonathan Wallace ([id number]) on 11/11/2019 9:37:57 AM
[2019-11-11] MEDS: ATROVENT NEB INH SCH ×4 (09:38→21:55)
[2019-11-11] MEDS: XOPENEX NEB INH SCH ×4 (09:38→21:55)
[2019-11-11] MEDS ORDERED: NS NEB INH SCH (10:00)
[2019-11-11] MEDS: PERIDEX MT SCH ×2 (10:00→21:00)
--- NOTE | 2019-11-11 18:00 | PROVIDER PROGRESS NOTE ---
Progress Note Dr. Mosquera Progress Note/Pulmonary and or critical care Subjective: The patient remains intubated. He stays on Diprivan for sedation with stable blood pressure. He isonNG tube feeding at this time. Input was appreciated from Dr. Schulte and other teams on the case. Objective: Vital Signs: No fever in last 24 hours, SC 41, RR 19, BP 146/67 and SaO2 96% on AC 20, 100%, 450, 5. I/O: +394 ml. Physical Examination: General: Lying in bed on Ventilator with no acute distress noted. HEENT: Normocephalic. Atraumatic. Trachea midline. Mucosa pink and moist. PERRL. Chest: Symmetrical excursion. Auscultation reveals dry inspiratory crackles bibasilarly anteriorly and posteriorly with decreased air entry bilaterally. CVS: Bradycardia. S1 and S2 appreciated. Abdomen: Soft. Non-tender. Non-distended. Bowel sounds present in all 4 quadrants. Extremities: No pedal edema. No cyanosis. Clubbing noted. Right forearm swelling with dressing in place. Right upper arm bruising. Neuro: Sedated. Labs and Radiology: Laboratory Results 11/11/19 11/11/19 11/11/19 04:05 05:30 05:30 WBC 11.60 H RBC 4.09 L Hgb 10.9 L Hct 34.4 L MCV 84.1 MCH 26.7 L MCHC 31.7 L RDW Std Deviation 13.3 Plt Count 77 L MPV 10.4 Immature Gran % (Auto) 1.0 H Neut % (Auto) 90.3 H Lymph % (Auto) 4.2 L [place] % (Auto) 4.2 Eos % (Auto) 0.0 Baso % (Auto) 0.3 Immature Gran # (Auto) 0.12 H Neut # (Auto) 10.47 H Lymph # (Auto) 0.49 L [place] # (Auto) 0.49 Eos # (Auto) 0.00 Baso # (Auto) 0.03 Segmented Neutrophils 94 H Lymphocytes 4 L Unidentified Cells 2.0 Specimen Type ARTERIAL Sample Site R RADIAL pH 7.34 L pCO2 64 H* pO2 95 HCO3 30.3 H Base Excess 6.9 H Oxyhemoglobin 96.5 ABG O2 Sat (Calculated) 15.9 ABG O2 Saturation 98.8 ABG Carboxyhemoglobin 1.60 ABG Methemoglobin 0.8 Jhonathan Test YES A-a O2 Difference 538.0 Total Hemoglobin 11.6 Lactate 1.20 Blood Gas Modality VENTILATOR Spontaneous Rate 20 FiO2 % 100.0 Tidal Volume 450 PEEP 5.0 Sodium 145 Potassium 4.2 Chloride 109 H Carbon Dioxide 32 Anion Gap 4 BUN 25 H Creatinine 0.3 L Estimated GFR/1.73 m2 > 60 BUN/Creatinine Ratio 83 Glucose 129 H Calculated Osmolality 295 Calcium 8.1 L Total Bilirubin Direct Bilirubin AST ALT Alkaline Phosphatase Lcs-T-Cqxfzgmccot Pept Total Protein Albumin Globulin Albumin/Globulin Ratio 11/11/19 11/11/19 05:30 05:30 WBC RBC Hgb Hct MCV MCH MCHC RDW Std Deviation Plt Count MPV Immature Gran % (Auto) Neut % (Auto) Lymph % (Auto) [place] % (Auto) Eos % (Auto) Baso % (Auto) Immature Gran # (Auto) Neut # (Auto) Lymph # (Auto) [place] # (Auto) Eos # (Auto) Baso # (Auto) Segmented Neutrophils Lymphocytes Unidentified Cells Specimen Type Sample Site pH pCO2 pO2 HCO3 Base Excess Oxyhemoglobin ABG O2 Sat (Calculated) ABG O2 Saturation ABG Carboxyhemoglobin ABG Methemoglobin Jhonathan Test A-a O2 Difference Total Hemoglobin Lactate Blood Gas Modality Spontaneous Rate FiO2 % Tidal Volume PEEP Sodium Potassium Chloride Carbon Dioxide Anion Gap BUN Creatinine Estimated GFR/1.73 m2 BUN/Creatinine Ratio Glucose Calculated Osmolality Calcium Total Bilirubin 0.41 Direct Bilirubin 0.10 AST 29 ALT 43 Alkaline Phosphatase 94 Yhs-V-Ghuralbecfd Pept 664 H Total Protein 5.0 L Albumin 2.2 L Globulin 2.8 Albumin/Globulin Ratio 0.8 Assessment: Acute respiratory failure with development of ARDS and hypercapnia. Intubated on 11/09/19. Possible pneumonia vs. pulmonary edema vs. ARDS. CXR this morning shows stable extensive airspace infiltrates bilaterally with air bronchograms. Acute exacerbation on advanced pulmonary fibrosis with possible underlying rheumatological disease. COVID-19 test on 10/28/19 is negative. The patients mother had pulmonary fibrosis and required lung transplant. He has prominent clubbing. He has history of 20 pack year smoking history in the past. The results of cystic fibrosis mutation panel are negative. The LAVERNE Screen is positive. ANCA Vasculitis panel is negative. Glomerular Base Membrane IgG is negative. Serum protein electrophoresis shows high Alpha 1, Alpha 2, Beta and Gamma (including elevated IgA and IgG). Pneumomediastinum and subcutaneous edema. General Surgery on board. Transient ischemic attack at presentation. Resolved. Atrial fibrillation with rapid ventricular response. Patient went into atrial fibrillation with rapid ventricular response on 11/02/19. On Cardizem. Under control. Prognosis guarded. Plan: Continue full ventilatory support. We are decreasing FiO2 down to 70% at this time. We titrated ventilator settings to patients needs per clinical protocols. We will monitor patients response closely. We follow up ABG tomorrow. We titrated sedative (Diprivan drip) to patients needs per clinical protocols. We will monitor patients response closely. Continue Antibiotics including Cefepime and Vancomycin. We will keep monitoring patient's clinical and lab response closely. Continue IV Solu-Medrol 80 mg Q6H. Continue GI, DVT and VAP prophylaxis. Continue bronchodilators including Xopenex and Atrovent. Outpatient Rheumatology followup planning. Sputum culture repeated. Total evaluation time in minutes: 33.
[2019-11-12] MEDS: MORPHINE IV PRN ×3 (00:36→23:36)
[2019-11-12] MEDS: VANCOMYCIN 1,700 MG in NS 250 ML IV SCH (02:53)
[2019-11-12] MEDS: XOPENEX NEB INH SCH ×5 (03:40→21:25)
[2019-11-12] MEDS: ATROVENT NEB INH SCH ×5 (03:40→21:25)
[2019-11-12] MEDS: SOLU-MEDROL IV SCH ×4 (03:50→20:10)
[2019-11-12 05:17] LABS: ALLEN TEST YES; BE 9.9 mmoll (-3.0-3.0); BLOOD TYPE ARTERIAL; HCO3-(ACT) 32.5 mmoll (20.0-26.0); METHB 0.9 % (0.0-1.5); O2(CT) 19.8 mL/dL (15.0-23.0); O2HB 94.2 % (95.0-99.0); PO2(98.6) 77 mmHg (60-100); SAMPLE BLOOD; SAO2 96.9 % (95.0-100.0); SRATE 20 BPM; THB 14.9 g/dL (11.5-17.4); TVOL 450 mL; pH(98.6) 7.37 (7.35-7.45)
[2019-11-12] MEDS: DIPRIVAN 1% 1,000 MG/100 ML BOTTLE IV SCH ×4 (05:19→20:10)
[2019-11-12 05:22] LABS: MODALITY VENTILATOR
[2019-11-12 05:23] LABS: PCO2(98.6) 66 mmHg (35-45)
[2019-11-12] MEDS: PRILOSEC PO SCH (06:04)
--- NOTE | 2019-11-12 06:27 | Diag Imaging Result Doc PS360 ---
EXAM: CHEST-1 VIEW 11/12/2019 HISTORY: SOB TECHNIQUE: AP portable at 0526 COMMENT: There is pneumomediastinum and soft tissue emphysema in the base of the neck and left supraclavicular region which is worse compared to the previous study of 11/11/2019. There continues to be diffuse coarse opacities and apical pleural thickening. This is slightly worse than on 10/27/2019. IMPRESSION: Pulmonary edema versus pneumonia superimposed on pulmonary and pleural fibrosis. Pneumomediastinum and soft tissue emphysema. Electronically signed by Mauro Bashir 11/12/2019 6:24 AM
[2019-11-12 06:40] LABS: AGAP 6; BUN 28 mg/dL (8-22); CALCIUM 7.9 mg/dL (8.8-10.2); CHLORIDE 108 mmol/L (98-107); COSMO 302; CREATININE 0.4 mg/dL (0.7-1.2); ESTIMATED GFR > 60; GLUCOSE 135 mg/dL (70-104); MAGNESIUM 2.3 mg/dL (1.5-2.7); PHOSPHORUS 2.2 mg/dL (2.7-4.5); POTASSIUM 4.7 mmol/L (3.5-5.1); PREALBUMIN 8.7 mg/dL (20-40); SODIUM 148 mmol/L (136-145); TCO2 34 mmol/L (25-35)
[2019-11-12] MEDS ORDERED: LASIX IV ONE ×2 (06:53→10:33)
[2019-11-12 07:42] LABS: HEMATOCRIT 34.8 % (42.0-52.0); LYMPH# 0.32 X1000 (1.2-3.4); MCHC 31.6 g/dL (33-37); MCV 85.5 FL (81-99); MONO# 0.88 X1000 (0.11-0.59); MONO% 5.4 % (1.7-9.3); MPV 11.3 FL (7.4-10.4); NEUT# 15.12 X1000 (1.4-6.5); NEUT% 92.6 % (42.2-75.2); PLT 62 X1000 (130-400); RBC 4.07 XMIL (4.7-6.1); RDW 13.3 % (11.5-14.5); WBC 16.32 X1000 (4.8-10.8)
[2019-11-12] MEDS: PERIDEX MT SCH ×2 (08:11→20:10)
[2019-11-12] MEDS: MAXIPIME 2 GM/NS 2 GM/100 ML IVPB IV SCH ×3 (08:12→23:24)
[2019-11-12] MEDS: LIPITOR PO SCH (08:12)
[2019-11-12 08:24] LABS: BANDS 8 % (0-1); MONO 2 % (1-9); SEGS 88 % (42-75)
--- NOTE | 2019-11-12 09:45 | PROGRESS NOTE ---
DATE: 11/12/2019 INTERVAL HISTORY: Mr. Jaime remains intubated, needing anywhere between 70 to 80 percent FiO2. He was started on tube feeds yesterday, which he has been tolerating reasonably well. His proBNP was elevated and he is getting a dose of Lasix. He continues to have mild thrombocytopenia and right arm cellulitis. SUBJECTIVE: He is intubated and sedated. REVIEW OF SYSTEMS: Review of systems could not be obtained. VITALS: Temperature 97.8 degrees, pulse 63, respiratory rate 29, blood pressure 134/95. He is saturating 92% on 80% mechanical ventilation. PHYSICAL EXAMINATION: He is not in any acute distress. He is overbreathing the ventilator visibly. He has facial erythema, probably because of history of rosacea. Lungs: Air entry bilaterally equal. No wheeze or rhonchi. He has bilateral coarse Velcro-like crackles in the infraaxillary and inframammary regions. Cardiovascular: S1, S2 normal. Currently not bradycardic. No murmur, rub, or gallop. Abdomen is soft, nontender. No lower extremity edema. He has right upper extremity edema and area of cellulitis, affecting especially medial aspect of arm and forearm due to previous IV infiltration, which is currently bandaged. Wound care nurse is taking care of it. He has an endotracheal tube, nasogastric tube, and urine catheter. He does not have any more GI bleed. His pupils are bilaterally equal reacting to light. He is moving all extremities to painful stimuli. Abdomen is soft, nontender. Active bowel sounds. Input and output suggest 1 L urine output, positive 600 mL. LABS: WBCs 16,000, hemoglobin 11, platelets 62,000. PH 7.3, pCO2 of 66, PO2 of 77, on 80% FiO2. He has a sodium of 148, chloride of 108, BUN of 28, creatinine 0.4. MICROBIOLOGY: Repeat sputum culture is pending. MEDICATIONS: He is on atorvastatin, cefepime, chlorhexidine for ventilator- associated pneumonia prophylaxis, ipratropium, levalbuterol, methylprednisolone IV, intravenous vancomycin, morphine, omeprazole, propofol, silver sulfadiazine. IMAGING: Chest x-ray this morning suggests pulmonary edema plus or minus pneumonia superimposed on fibrosis and pneumomediastinum, and soft tissue emphysema. ASSESSMENT AND PLAN: 1. Acute hypoxic respiratory failure due to acute exacerbation of idiopathic pulmonary fibrosis, status post intubation on November 08. Continue mechanical ventilation and sedation as per pulmonology recommendations. Continue proton pump inhibitors for stress ulcer prophylaxis, chlorhexidine for ventilator-associated pneumonia prophylaxis. I will start enoxaparin for deep venous thrombosis prophylaxis. Continue IV Steroids. 2. Suspected bilateral pneumonia on top of baseline pulmonary fibrosis. Continue intravenous vancomycin, intravenous cefepime. Give a one-time dose of intravenous Lasix to match input and output. Repeat sputum culture results. Continue inhaled ipratropium, levalbuterol for prior 20 pack history of smoking. 3. Right forearm chemical granger with surrounding cellulitis. Continue intravenous antibiotics and topical silver sulfadiazine according to wound care's recommendations. 4. Subcutaneous emphysema with pneumomediastinum, likely related to rupture of his emphysematous bulla. Surgical team on board and currently recommends conservative management. 5. Atrial fibrillation with rapid ventricular response during this hospital admission in the setting of sepsis has resolved. He is no longer bradycardic. Continue to monitor him on telemetry. 6. Thrombocytopenia appears to have stabilized. I will consider adding enoxaparin for deep venous thrombosis prophylaxis. In the future, I will consider adding aspirin for his presentation with transient ischemic attack. I will continue him on atorvastatin for primary cerebrovascular accident prophylaxis. 7. Outpatient rheumatological work up for positive LAVERNE. 7. Disposition. Thirty-five minutes of critical care time were spent taking of this patient. I will continue to monitor the patient in the intensive care unit. His condition remains critical. I called the patient's sister and father on the phone, and I discussed with them about the patient's clinical condition. I discussed with both of them about his critical condition, prognosis. Palliative care team has been requested to follow this patient. All of his family's questions have been answered. cc: Howard Schulte MD MTDD
[2019-11-12] MEDS: LOVENOX SUBQ SCH (10:36)
[2019-11-12] MEDS: SSD CREAM TOP SCH (10:43)
[2019-11-12] MEDS: VANCOMYCIN 1,900 MG in NS 500 ML IV SCH (13:45)
--- NOTE | 2019-11-12 18:42 | PROVIDER PROGRESS NOTE ---
Progress Note Dr. Mosquera Progress Note/Pulmonary and or critical care Subjective: The patient remains intubated. He stays on Diprivan for sedation. He isonNG tube feeding at this time. FiO2 has been increased from 80% this morning to 100% at this time. Patient's sister at the bedside. Input was appreciated from Dr. Schulte and other teams on the case. Objective: Vital Signs: No fever in last 24 hours, MA 61, RR 25, BP 118/63 and SaO2 89% on AC 20, 80%, 450, 5. I/O: +647 ml. Physical Examination: General: Lying in bed on Ventilator with no acute distress noted. HEENT: Normocephalic. Atraumatic. Trachea midline. Mucosa pink and moist. PERRL. Respiratory: Symmetrical excursion. Auscultation reveals dry inspiratory crackles bibasilarly anteriorly and posteriorly with decreased air entry bilaterally. Cardiovascular: Bradycardia. S1 and S2 appreciated. Gastrointestinal: Soft. Non-tender. Non-distended. Bowel sounds present in all 4 quadrants. Extremities: No pedal edema. No cyanosis. Clubbing noted. Right forearm swelling with dressing in place. Right upper arm bruising. Neuro: Sedated. Labs and Radiology: Laboratory Results 11/12/19 11/12/19 11/12/19 01:13 04:30 04:30 WBC 16.32 H RBC 4.07 L Hgb 11.0 L Hct 34.8 L MCV 85.5 MCH 27.0 MCHC 31.6 L RDW Std Deviation 13.3 Plt Count 62 L MPV 11.3 H Neut % (Auto) 92.6 H Lymph % (Auto) 2.0 L [place] % (Auto) 5.4 Eos % (Auto) 0.0 Baso % (Auto) 0.0 Neut # (Auto) 15.12 H Lymph # (Auto) 0.32 L [place] # (Auto) 0.88 H Eos # (Auto) 0.00 Baso # (Auto) 0.00 Segmented Neutrophils 88 H Band Neutrophils 8 H Monocytes 2 Metamyelocytes 2.0 Specimen Type Sample Site pH pCO2 pO2 HCO3 Base Excess Oxyhemoglobin ABG O2 Sat (Calculated) ABG O2 Saturation ABG Carboxyhemoglobin ABG Methemoglobin Jhonathan Test A-a O2 Difference Total Hemoglobin Lactate Blood Gas Modality Vent Mode Spontaneous Rate FiO2 % Tidal Volume PEEP Sodium 148 H Potassium 4.7 Chloride 108 H Carbon Dioxide 34 Anion Gap 6 BUN 28 H Creatinine 0.4 L Estimated GFR/1.73 m2 > 60 BUN/Creatinine Ratio 70 Glucose 135 H Calculated Osmolality 302 Calcium 7.9 L Phosphorus 2.2 L Magnesium 2.3 Prealbumin 8.7 L Random Vancomycin 9.60 11/12/19 05:10 WBC RBC Hgb Hct MCV MCH MCHC RDW Std Deviation Plt Count MPV Neut % (Auto) Lymph % (Auto) [place] % (Auto) Eos % (Auto) Baso % (Auto) Neut # (Auto) Lymph # (Auto) [place] # (Auto) Eos # (Auto) Baso # (Auto) Segmented Neutrophils Band Neutrophils Monocytes Metamyelocytes Specimen Type ARTERIAL Sample Site R RADIAL pH 7.37 pCO2 66 H* pO2 77 HCO3 32.5 H Base Excess 9.9 H Oxyhemoglobin 94.2 L ABG O2 Sat (Calculated) 19.8 ABG O2 Saturation 96.9 ABG Carboxyhemoglobin 1.90 ABG Methemoglobin 0.9 Jhonathan Test YES A-a O2 Difference 482.0 Total Hemoglobin 14.9 Lactate 1.50 Blood Gas Modality VENTILATOR Vent Mode A/C PC Spontaneous Rate 20 FiO2 % 90.0 Tidal Volume 450 PEEP 5.0 Sodium Potassium Chloride Carbon Dioxide Anion Gap BUN Creatinine Estimated GFR/1.73 m2 BUN/Creatinine Ratio Glucose Calculated Osmolality Calcium Phosphorus Magnesium Prealbumin Random Vancomycin Assessment: Acute respiratory failure with development of ARDS and hypercapnia. Intubated on 11/09/19. Worsened. Possible pneumonia vs. pulmonary edema vs. ARDS. CXR this morning shows pulmonary edema vs. pneumonia superimposed on pulmonary and pleural fibrosis, pneumomediastinum and soft tissue emphysema. Acute exacerbation on advanced pulmonary fibrosis with possible underlying rheumatological disease. COVID-19 test on 10/28/19 is negative. The patients mother had pulmonary fibrosis and required lung transplant. He has prominent clubbing. He has history of 20 pack year smoking history in the past. The results of cystic fibrosis mutation panel are negative. The LAVERNE Screen is positive. ANCA Vasculitis panel is negative. Glomerular Base Membrane IgG is negative. Serum protein electrophoresis shows high Alpha 1, Alpha 2, Beta and Gamma (including elevated IgA and IgG). Pneumomediastinum and subcutaneous edema. General Surgery on board. Transient ischemic attack at presentation. Resolved. Atrial fibrillation with rapid ventricular response. Patient went into atrial fibrillation with rapid ventricular response on 11/02/19. On Cardizem. Under control. Prognosis uncertain to guarded. Plan: Continue full ventilatory support. We titrated ventilator settings to patients needs per clinical protocols. We will monitor patients response closely. We follow up ABG tomorrow. We titrated sedative (Diprivan drip) to patients needs per clinical protocols. We will monitor patients response closely. Continue Antibiotics including Cefepime and Vancomycin. We will keep monitoring patient's clinical and lab response closely. Continue IV Solu-Medrol 80 mg Q6H. Continue GI, DVT and VAP prophylaxis. Continue bronchodilators including Xopenex and Atrovent. Lasix 40 mg given. Continue tube feeding. Outpatient Rheumatology followup planning. We discussed patient's condition and care plans with patient's sister at the bedside and all questions have been answered. Total evaluation time in minutes: 32.
[2019-11-13] MEDS: DIPRIVAN 1% 1,000 MG/100 ML BOTTLE IV SCH ×6 (00:43→21:34)
[2019-11-13] MEDS: VANCOMYCIN 1,900 MG in NS 500 ML IV SCH ×2 (01:46→13:45)
[2019-11-13] MEDS: ATROVENT NEB INH SCH ×4 (03:25→21:26)
[2019-11-13] MEDS: XOPENEX NEB INH SCH ×4 (03:25→21:26)
[2019-11-13] MEDS: SOLU-MEDROL IV SCH ×4 (03:35→20:09)
[2019-11-13 04:57] LABS: ALLEN TEST YES; BE 19.2 mmoll (-3.0-3.0); BLOOD TYPE ARTERIAL; HCO3-(ACT) 39.9 mmoll (20.0-26.0); METHB 1.2 % (0.0-1.5); O2HB 96.4 % (95.0-99.0); PO2(98.6) 131 mmHg (60-100); SAMPLE BLOOD; SAO2 98.9 % (95.0-100.0); SRATE 20 BPM; THB 11.6 g/dL (11.5-17.4); TVOL 450 mL; pH(98.6) 7.41 (7.35-7.45)
[2019-11-13 04:59] LABS: MODALITY VENTILATOR; PCO2(98.6) 75 mmHg (35-45)
[2019-11-13 05:56] LABS: BASO# 0.01 X1000 (0.0-0.2); BASO% 0.1 % (0.0-0.8); HEMOGLOBIN 10.6 g/dL (14.0-18.0); LYMPH# 0.34 X1000 (1.2-3.4); LYMPH% 1.9 % (20.5-51.1); MCH 27.1 PG (27-31); MCHC 31.2 g/dL (33-37); MONO# 0.94 X1000 (0.11-0.59); MONO% 5.2 % (1.7-9.3); MPV 11.3 FL (7.4-10.4); PLT 67 X1000 (130-400); RBC 3.91 XMIL (4.7-6.1); RDW 13.3 % (11.5-14.5); WBC 17.91 X1000 (4.8-10.8)
[2019-11-13 06:07] LABS: AGAP 7; BUN 28 mg/dL (8-22); CALCIUM 8.2 mg/dL (8.8-10.2); CHLORIDE 107 mmol/L (98-107); COSMO 312; CREATININE 0.3 mg/dL (0.7-1.2); ESTIMATED GFR > 60; GLUCOSE 126 mg/dL (70-104); POTASSIUM 4.4 mmol/L (3.5-5.1); SODIUM 154 mmol/L (136-145); TCO2 40 mmol/L (25-35)
[2019-11-13 06:27] LABS: MONO 2 % (1-9); SEGS 88 % (42-75)
--- NOTE | 2019-11-13 06:44 | Diag Imaging Result Doc PS360 ---
EXAM: CHEST-1 VIEW 11/13/2019 HISTORY: SOB TECHNIQUE: AP portable at 0511 COMMENT: There is further worsening of the soft tissue emphysema in the supraclavicular areas, specifically on the right. Otherwise the appearance of the chest has not changed appreciably. IMPRESSION: Worsened soft tissue emphysema. Electronically signed by Mauro Bashir 11/13/2019 6:41 AM
[2019-11-13] MEDS: PRILOSEC PO SCH (07:37)
[2019-11-13 08:08] LABS: MAGNESIUM 2.4 mg/dL (1.5-2.7); PHOSPHORUS 2.8 mg/dL (2.7-4.5)
[2019-11-13] MEDS: PERIDEX MT SCH ×2 (08:20→20:09)
[2019-11-13] MEDS: LACTULOSE NG SCH ×2 (08:20→20:09)
[2019-11-13] MEDS: LIPITOR PO SCH (08:20)
[2019-11-13] MEDS: MAXIPIME 2 GM/NS 2 GM/100 ML IVPB IV SCH ×3 (08:21→23:58)
[2019-11-13] MEDS: SSD CREAM TOP SCH (08:21)
--- NOTE | 2019-11-13 10:24 | PROGRESS NOTE ---
DATE: 11/13/2019 INTERVAL HISTORY: Mr. Jaime's FiO2 requirement had increased and it was up to 100%. He has not had any bowel movement, so MiraLAX was added to his regimen. His platelet count has been stable. General surgical team evaluation for right forearm cellulitis is pending. He has hypernatremia and what appears to be contraction alkalosis. Lactulose has been added. Sputum is growing gram- negative rods. SUBJECTIVE: He is intubated, not responsive. REVIEW OF SYSTEMS: Review of systems could not be obtained. VITALS: Temperature 97.8 degrees, pulse 89, respiratory rate 27, blood pressure 139/71. He is saturating 94% on 100% mechanical ventilation. PHYSICAL EXAMINATION: General: He has facial plethora. No pallor, cyanosis, clubbing, or icterus. He appears in mild distress and tachypneic. Oral cavity is dry. Lungs: Air entry bilaterally equal. No wheeze or rhonchi. Bilateral coarse Velcro crackles in infra-axillary inframammary region. Cardiovascular: S1, S2 normal. No murmur, rub or gallop. Abdomen: Soft, nontender. Extremities: No lower extremity edema. He has right upper extremity area of cellulitis and chemical granger affecting medial aspect of the forearm due to previous IV infiltration, for which Wound Care and Surgical consult have been placed. He has endotracheal tube, NG tube, urine catheter. His pupils are bilaterally equal reacting to light. Abdomen is soft, nontender, hypoactive bowel sounds. Input and output suggests he was - 1600 mL today. LABS: Suggestive of WBC 17,000, hemoglobin 10.6, platelets 67. He has worsening hypercapnia to 75, PO2 is 131. He does have sodium of 154, carbon dioxide of 40, BUN of 28, creatinine 0.3. MICROBIOLOGY: Gram-negative dena in sputum. IMAGING: Chest x-ray this morning suggests worsened soft tissue emphysema. ASSESSMENT AND PLAN: 1. Acute hypoxic respiratory failure due to acute idiopathic pulmonary fibrosis exacerbation, status post intubation on November 08. Continue mechanical ventilation and sedation with propofol as per Pulmonology recommendation. Continue proton pump inhibitors for stress ulcer prophylaxis, chlorhexidine for ventilator-associated pneumonia prophylaxis, enoxaparin for deep venous thrombosis prophylaxis. Continue intravenous steroids. 2. Suspected bilateral multifocal pneumonia due to gram-negative dena. Continue intravenous vancomycin, intravenous cefepime, and follow up final sputum culture results. Continue inhaled levalbuterol ipratropium nebulization for suspected history of chronic obstructive pulmonary disease due to prior 20 pack-year smoking history, which he quit several years ago. He would need outpatient Rheumatology follow-up for a positive antinuclear antibody workup eventually. 3. Right forearm and arm chemical granger with surrounding cellulitis. Continue intravenous antibiotics, topical silver sulfadiazine, and follow-up surgical consult and wound care recommendations. 4. Hypernatremia and alkalosis likely due to intravenous Lasix use. I will consider increasing free water flushes through his percutaneous endoscopic gastrostomy tube and follow up with daily basic metabolic panel. 5. Subcutaneous emphysema with pneumomediastinum. Surgical team on board and currently recommends conservative management. 6. Others: His atrial fibrillation with rapid ventricular response episode have resolved. Currently, he is on normal sinus rhythm on med telemetry and does not have bradycardia; his thrombocytopenia appears to be stable; continue atorvastatin for transient ischemic attack on presentation, and add aspirin in the future as tolerated; continue percutaneous endoscopic gastrostomy tube feeding for nutrition; start lactulose for bowel regimen. DISPOSITION: Continue to monitor patient inside ICU. Forty minutes of critical care time was spent taking care of this patient. His code status is full. I had a detailed discussion about plan of care with his father and sister yesterday. I will keep them in the loop. Unfortunately, his condition looks extremely critical and prognosis appears guarded to grim considering increasing oxygen requirement. Appreciate Pulmonary recommendation. ADDENDUM: I went to the bedside and talked with 's sister and father in person about his critical condition and answered all of their questions. We discussed about his critical condition, high o2 requirement and grim prognosis. We discussed that considering his extremely tenuous respiratory status, he may not be an ideal candidate for even lung transplantation. cc: Howard Schulte MD MTDMarcella
[2019-11-13] MEDS: LOVENOX SUBQ SCH (10:34)
[2019-11-13] MEDS: MORPHINE IV PRN ×2 (12:32→20:09)
--- NOTE | 2019-11-13 16:05 | PROVIDER PROGRESS NOTE ---
Progress Note Dr. Mosquera Progress Note/Pulmonary and or critical care Subjective: The patient remains intubated. He stays on Diprivan for sedation. He isonNG tube feeding at this time. We are decreasing FiO2 from 100% to 80% at this time with PEEP already decreased from 8 to 5. Input was appreciated from Dr. Schulte and other teams on the case. Objective: Vital Signs: No fever in last 24 hours, NC 68, RR 20, BP 139/71, SaO2 96% on AC 20, 100%, 450, 8. I/O: -1609 ml. Physical Examination: General: Lying in bed on Ventilator with no acute distress noted. HEENT: Normocephalic. Atraumatic. Trachea midline. ET tube and NG tube in place. Mucosa pink and moist. PERRL. Respiratory: Symmetrical excursion. Auscultation reveals inspiratory crackles bibasilarly anteriorly and posteriorly with decreased air entry bilaterally. Cardiovascular: Bradycardia. S1 and S2 appreciated. Gastrointestinal: Soft. Non-tender. Non-distended. Bowel sounds present in all 4 quadrants. Extremities: No pedal edema. No cyanosis. Clubbing noted. Right forearm swelling with dressing in place. Right upper arm bruising. Neuro: Sedated. Labs and Radiology: Laboratory Results 11/13/19 11/13/19 11/13/19 04:20 04:20 04:20 WBC 17.91 H RBC 3.91 L Hgb 10.6 L Hct 34.0 L MCV 87.0 MCH 27.1 MCHC 31.2 L RDW Std Deviation 13.3 Plt Count 67 L MPV 11.3 H Neut % (Auto) Not Reportable Lymph % (Auto) 1.9 L Ponce % (Auto) 5.2 Eos % (Auto) Not Reportable Baso % (Auto) 0.1 Neut # (Auto) Not Reportable Lymph # (Auto) 0.34 L Ponce # (Auto) 0.94 H Eos # (Auto) Not Reportable Baso # (Auto) 0.01 Segmented Neutrophils 88 H Monocytes 2 Unidentified Cells 10.0 Specimen Type Sample Site pH pCO2 pO2 HCO3 Base Excess Oxyhemoglobin ABG O2 Sat (Calculated) ABG O2 Saturation ABG Carboxyhemoglobin ABG Methemoglobin Jhonathan Test A-a O2 Difference Total Hemoglobin Lactate Blood Gas Modality Vent Mode Spontaneous Rate FiO2 % Tidal Volume PEEP Sodium 154 H Potassium 4.4 Chloride 107 Carbon Dioxide 40 H Anion Gap 7 BUN 28 H Creatinine 0.3 L Estimated GFR/1.73 m2 > 60 BUN/Creatinine Ratio 93 Glucose 126 H Calculated Osmolality 312 Calcium 8.2 L Phosphorus 2.8 Magnesium 2.4 11/13/19 04:47 WBC RBC Hgb Hct MCV MCH MCHC RDW Std Deviation Plt Count MPV Neut % (Auto) Lymph % (Auto) Ponce % (Auto) Eos % (Auto) Baso % (Auto) Neut # (Auto) Lymph # (Auto) Ponce # (Auto) Eos # (Auto) Baso # (Auto) Segmented Neutrophils Monocytes Unidentified Cells Specimen Type ARTERIAL Sample Site R RADIAL pH 7.41 pCO2 75 H* pO2 131 H HCO3 39.9 H Base Excess 19.2 H Oxyhemoglobin 96.4 ABG O2 Sat (Calculated) 16.0 ABG O2 Saturation 98.9 ABG Carboxyhemoglobin 1.40 ABG Methemoglobin 1.2 Jhonathan Test YES A-a O2 Difference 488.0 Total Hemoglobin 11.6 Lactate 1.50 Blood Gas Modality VENTILATOR Vent Mode A/C Spontaneous Rate 20 FiO2 % 100.0 Tidal Volume 450 PEEP 8.0 Sodium Potassium Chloride Carbon Dioxide Anion Gap BUN Creatinine Estimated GFR/1.73 m2 BUN/Creatinine Ratio Glucose Calculated Osmolality Calcium Phosphorus Magnesium Assessment: Acute respiratory failure with development of ARDS and hypercapnia. Intubated on 11/09/19. Fluctuating. Pneumonia. CXR this morning shows worsened soft tissue emphysema. Sputum culture on 11/11/19 grows Gram negative dena at this time. Acute exacerbation on advanced pulmonary fibrosis with possible underlying rheumatological disease. COVID-19 test on 10/28/19 is negative. The patients mother had pulmonary fibrosis and required lung transplant. He has prominent clubbing. He has history of 20 pack year smoking history in the past. The results of cystic fibrosis mutation panel are negative. The LAVERNE Screen is positive. ANCA Vasculitis panel is negative. Glomerular Base Membrane IgG is negative. Serum protein electrophoresis shows high Alpha 1, Alpha 2, Beta and Gamma (including elevated IgA and IgG). Pneumomediastinum and subcutaneous edema. General Surgery on board. Transient ischemic attack at presentation. Resolved. Atrial fibrillation with rapid ventricular response. Patient went into atrial fibrillation with rapid ventricular response on 11/02/19. On Cardizem. Under control. RUE chemical granger with surrounding cellulitis. Prognosis uncertain to guarded. Plan: Continue full ventilatory support. We titrated ventilator settings to patients needs per clinical protocols. We will monitor patients response closely. We follow up ABG tomorrow. We titrated sedative (Diprivan drip) to patients needs per clinical protocols. We will monitor patients response closely. Continue Antibiotics including Cefepime and Vancomycin. We will keep monitoring patient's clinical and lab response closely.We follow up CBC, BMP, CXR and the final results of sputum cutlure. Continue IV Solu-Medrol 80 mg Q6H. Continue GI, DVT and VAP prophylaxis. Continue bronchodilators including Xopenex and Atrovent. Continue tube feeding. Outpatient Rheumatology followup planning. Total evaluation time in minutes: 34.
--- NOTE | 2019-11-13 17:44 | GENERAL SURGERY PROGRESS NOTE ---
DATE: 11/13/2019 SUBJECTIVE: The patient remains intubated and I was made aware of a wound on the right arm secondary to infiltration of vancomycin into the subcutaneous tissues. This apparently happened several days ago. The wound care nurse asked me to take a look at it. This just came to my attention today. OBJECTIVE: He is afebrile, pulse 111, respirations 42, blood pressure 125/73.General: He remains sedated and on the ventilator. Respiratory: Coarse bilateral breath sounds. Extremities: The right forearm is examined. There is a large ecchymosis. There is some mild induration and there is an area on the volar aspect of skin necrosis or at least significant skin ischemia that has the appearance of a deep second-degree or third-degree burn. It is white. I do not detect any fluctuance or crepitus in the arm, though there is some moderate swelling in the arm. There is capillary refill in the fingers and hand is warm and not cold. LABORATORY: White cell count 17.9, hemoglobin 10.6, pH 7 7.4 pCO2 75, PaO2 131, bicarb 39. IMAGING: A chest x-ray shows worsening soft tissue emphysema in the supraclavicular areas, however, no noticeable pneumothorax. ASSESSMENT/PLAN: A 49-year-old male with worsening respiratory failure, subcutaneous emphysema, pneumomediastinum, probable pulmonary fibrosis and now soft tissue injury of the right arm which is iatrogenic. Currently, I think continuing antibiotics such as cefepime and vancomycin will cover the bacteria of the arm and we will place a silver foam gauze and observe for any needs of debridement in the future. cc: Hayder Oneal MD
[2019-11-14] MEDS: MORPHINE IV PRN ×3 (00:15→14:02)
[2019-11-14] MEDS ORDERED: APRESOLINE IV PRN (01:41)
[2019-11-14] MEDS: DIPRIVAN 1% 1,000 MG/100 ML BOTTLE IV SCH ×8 (02:09→22:11)
[2019-11-14] MEDS: VANCOMYCIN 1,900 MG in NS 500 ML IV SCH ×2 (02:10→15:04)
[2019-11-14] MEDS: XOPENEX NEB INH SCH ×4 (03:26→21:59)
[2019-11-14] MEDS: ATROVENT NEB INH SCH ×4 (03:26→21:59)
[2019-11-14] MEDS: SOLU-MEDROL IV SCH ×4 (03:47→20:31)
[2019-11-14 04:56] LABS: ALLEN TEST YES; BE 16.3 mmoll (-3.0-3.0); BLOOD TYPE ARTERIAL; HCO3-(ACT) 37.5 mmoll (20.0-26.0); METHB 1.2 % (0.0-1.5); O2(CT) 14.7 mL/dL (15.0-23.0); O2HB 92.6 % (95.0-99.0); PO2(98.6) 65 mmHg (60-100); SAMPLE BLOOD; SAO2 95.4 % (95.0-100.0); SRATE 20 BPM; THB 11.3 g/dL (11.5-17.4); TVOL 450 mL; pH(98.6) 7.46 (7.35-7.45)
[2019-11-14 05:21] LABS: MODALITY VENTILATOR; PCO2(98.6) 60 mmHg (35-45)
[2019-11-14 06:31] LABS: BASO# 0.02 X1000 (0.0-0.2); BASO% 0.1 % (0.0-0.8); HEMATOCRIT 35.4 % (42.0-52.0); HEMOGLOBIN 10.9 g/dL (14.0-18.0); LYMPH# 0.42 X1000 (1.2-3.4); LYMPH% 2.2 % (20.5-51.1); MCHC 30.8 g/dL (33-37); MCV 87.8 FL (81-99); MONO# 1.06 X1000 (0.11-0.59); MONO% 5.6 % (1.7-9.3); PLT 58 X1000 (130-400); RBC 4.03 XMIL (4.7-6.1); RDW 13.4 % (11.5-14.5); WBC 18.93 X1000 (4.8-10.8)
[2019-11-14] MEDS: PRILOSEC PO SCH (06:37)
[2019-11-14 06:39] LABS: ALB/GLOB RATIO 0.8; ALBUMIN 2.3 g/dL (3.5-5.0); DIRECT BILIRUBIN 0.1 mg/dL (0.00-0.20); TOTAL BILIRUBIN 0.41 mg/dL (0.20-1.00); TOTAL PROTEIN 5.3 g/dL (6.3-8.3)
[2019-11-14 06:44] LABS: AGAP 7; BUN 27 mg/dL (8-22); CALCIUM 8.2 mg/dL (8.8-10.2); CHLORIDE 105 mmol/L (98-107); COSMO 300; CREATININE 0.3 mg/dL (0.7-1.2); ESTIMATED GFR > 60; GLUCOSE 118 mg/dL (70-104); POTASSIUM 4.4 mmol/L (3.5-5.1); SODIUM 148 mmol/L (136-145); TCO2 36 mmol/L (25-35)
--- NOTE | 2019-11-14 06:52 | Diag Imaging Result Doc PS360 ---
EXAM: CHEST-1 VIEW HISTORY: SOB TECHNIQUE: Single view COMPARISON: 11/13/2019 FINDINGS: No change in the endotracheal tube or nasogastric tube there are diffuse bilateral infiltrates. No pleural effusions identified. Subcutaneous air is much less pronounced on the current exam. IMPRESSION: Mild interval improvement Electronically signed by Adelfo Roldan 11/14/2019 6:50 AM
[2019-11-14 07:20] LABS: LYMPHS 2 % (21-51); MONO 5 % (1-9); SEGS 93 % (42-75)
[2019-11-14] MEDS: SODIUM CHLORIDE 0.9% INJ SCH (08:05)
[2019-11-14] MEDS: PROTONIX IV SCH (08:05)
[2019-11-14] MEDS: MAXIPIME 2 GM/NS 2 GM/100 ML IVPB IV SCH ×3 (08:05→23:08)
[2019-11-14] MEDS: PERIDEX MT SCH ×2 (08:06→20:32)
[2019-11-14] MEDS: LACTULOSE NG SCH ×2 (08:06→20:31)
[2019-11-14] MEDS: LIPITOR PO SCH (08:06)
[2019-11-14] MEDS ORDERED: NS 250 ML ONE (08:30)
--- NOTE | 2019-11-14 08:37 | GENERAL SURGERY PROGRESS NOTE ---
DATE: 11/14/2019 SUBJECTIVE: The patient remains intubated and sedated. No new reports of events. OBJECTIVE: Vital Signs: Afebrile. Pulse 70s to 80s. Blood pressure 126/71. O2 saturation 98%. General: He is sedated. Respiratory: Bilateral breath sounds on the vent. Chest: I do not detect any crepitus in the anterior chest, shoulder or neck area. Extremities: The right arm is bandaged; I saw it yesterday afternoon. Please see that note. IMAGING: Chest x-ray this morning shows mild interval improvement with much less subcutaneous air. No pleural effusions. No pneumothorax identified. ASSESSMENT/PLAN: A 49-year-old male with pulmonary fibrosis, respiratory failure, pneumomediastinum and subcutaneous emphysema. As far as the pneumomediastinum and subcutaneous emphysema, this appears to be improving. No indication for chest tube at this time. His right arm also has soft tissue and skin injury secondary to vancomycin infiltration. We will continue silver foam dressing changes and antibiotics. cc: Hayder Oneal MD
--- NOTE | 2019-11-14 09:06 | PROGRESS NOTE ---
DATE: 11/14/2019 INTERVAL HISTORY: Mr. Jaime's vitals were unremarkable. His oxygen saturation remained in the low 90s, and he has persistent thrombocytopenia of 58,000. His sodium decreased. He has not had any documented bowel movement. SUBJECTIVE: He remains intubated and sedated. He appears tachypneic. OBJECTIVE: Vital Signs: Currently temperature 98.9 degrees, pulse 87, respiratory rate 22, blood pressure 126/71. His oxygen saturation is 90% on 90% FiO2. General: On physical examination, he is sedated. Oral cavity is dry. No pallor or cyanosis or icterus. He has prominent clubbing. Lungs: Air entry bilaterally equal. He has bilateral rhonchi and Velcro-like crackles diffusely. Cardiovascular: S1, S2 normal. No murmur, rub, or gallop. Abdomen: Soft, nontender. Extremities: No lower extremity edema. He has a right upper extremity area of chemical cellulitis affecting medial aspect of right forearm and arm, which is dressed. Neurologic: His pupils are bilaterally equal, reacting to light. He has endotracheal tube, urine catheter, NG tube. He is currently not withdrawing to painful stimuli due to heavy sedation. LABS: Suggestive of WBC 18,000, hemoglobin 10.9 platelet of 58. His pH is 7.4, pCO2 of 60. Sodium is 148, chloride 105, BUN 27, and creatinine 0.8. His proBNP is 300. MICROBIOLOGY: Sputum culture is growing gram-negative rods. X-RAYS: Chest x-ray this morning suggests mild interval improvement. ASSESSMENT AND PLAN: 1. Acute hypoxic respiratory failure due to acute idiopathic pulmonary fibrosis exacerbation, status post intubation on November 08. Continue mechanical ventilation and sedation with propofol as per Pulmonology recommendations. Start pantoprazole for stress ulcer prophylaxis, chlorhexidine for ventilator associated pneumonia prophylaxis, enoxaparin for deep venous thrombosis prophylaxis. Continue intravenous steroids. 2. Suspected bilateral multifocal pneumonia due to gram-negative dena. Continue intravenous vancomycin, cefepime, and follow up final sputum culture results. Continue inhaled bronchodilators for prior history of 20 pack-years smoking. He will need outpatient Rheumatology follow-up for positive antinuclear antibody workup eventually. 3. Right forearm and arm chemical granger with surrounding cellulitis. Continue intravenous antibiotics. Topical wound care. Appreciate wound care and surgical team's recommendation. 4. Hypernatremia and metabolic alkalosis likely due to intravascular volume depletion after Lasix. I will continue to address it through free water flushes. 5. Subcutaneous emphysema with pneumomediastinum. Surgical team on board. Currently recommends watchful observation. 6. Others: His atrial fibrillation with rapid ventricular response has resolved; he is no longer bradycardic; his thrombocytopenia appears to be stable. I will monitor daily platelet count; continue atorvastatin for transient ischemic attack on presentation, and I will add aspirin as needed in future; continue percutaneous endoscopic gastrostomy tube feeding for nutrition and intensify bowel regimen. DISPOSITION: 35 minutes of critical care time was spent taking care of Mr. Jaime. Plan of care discussed with the nurse. Considering his critical illness and limited IV access on left upper extremity, I will go ahead and place consult for PICC line. Plan of care was discussed with the patient's family yesterday at bedside. They understood his critical condition. All of their questions have been answered. cc: Howard Schulte MD
[2019-11-14] MEDS: LOVENOX SUBQ SCH (09:15)
[2019-11-14] MEDS: DULCOLAX PR SCH ×2 (09:30→20:31)
[2019-11-14 09:31] LABS: INR 1.09; PROTIME 14.3 Seconds (11.0-16.0)
--- NOTE | 2019-11-14 19:06 | PULMONOLOGY PROGRESS NOTE ---
DATE: 11/14/2019 SUBJECTIVE: The patient remains intubated and sedated. OBJECTIVE: Vital Signs: Blood pressure is 155/79 with a heart rate of 64, respirations are 21, temperature is 97.8 degrees with O2 saturations that are ranging from 84 percent to 91 percent. Eyes: Pupils are equal, round, and react to light. Sclerae are anicteric. HENT: Head is normocephalic, atraumatic. Mucous membranes are dry. neck: Neck is supple with trachea midline. Cardiovascular: Regular rate and rhythm. S1 and S2 are appreciated. No murmur. Pulmonary: Rhonchi and crackles diffusely. Chest rises and falls symmetric with respiration. Respirations are per ventilator. Gastrointestinal: Abdomen is soft and nondistended with bowel sounds in all 4 quadrants. Neurologic: He is sedated. Extremities: No edema. He does have a dressing to his right upper extremity that is from a chemical cellulitis. LABORATORIES: WBC is 18.9 with hemoglobin 10.9, hematocrit 35.4, platelets of 58,000. Sodium 148, potassium 4.4, BUN 27, creatinine 0.3 with a glucose of 118. ABGs: pH is 7.46 with pCO2 of 60, pO2 of 65, and bicarb of 37.5. These are on AC rate of 20, 90% FiO2, 450 tidal volume, and 5 of PEEP. Sputum reveals gram-negative dena. STUDIES: Chest x-ray: Mild interval improvement with sub-Q air much less pronounced on the current exam as compared to 11/12. ASSESSMENT AND PLAN: 1. Acute respiratory failure with the development of acute respiratory distress syndrome and hypercapnia, intubated 11/09/2019. 2. Pneumonia with gram-negative dena at this time per sputum culture. 3. Acute exacerbation of pulmonary fibrosis in a patient with his family history of idiopathic pulmonary fibrosis. 4. Pneumomediastinum and subcutaneous emphysema, improving. General Surgery on board. 5. Transient ischemic attack at presentation. 6. Atrial fibrillation with rapid ventricular response 11/02/2019, rate is controlled. 7. Right upper extremity chemical granger with surrounding cellulitis. PLAN: 1. Continue full ventilatory support. 2. Continue Diprivan drip per protocol. 3. Continue antibiotics, cefepime and vancomycin. 4. Continue steroids q. 8 to 6 hours. 5. Continue bronchodilators. 6. Continue tube feedings. 7. We will continue GI prophylaxis as well as DVT prophylaxis. Dictated by DENISA Goodman for Aron Okeefe MD cc: DENISA Goodman MD
[2019-11-15] MEDS: DIPRIVAN 1% 1,000 MG/100 ML BOTTLE IV SCH ×9 (02:01→23:25)
[2019-11-15] MEDS: XOPENEX NEB INH SCH ×4 (03:20→22:46)
[2019-11-15] MEDS: ATROVENT NEB INH SCH ×4 (03:20→22:46)
[2019-11-15] MEDS: VANCOMYCIN 2,000 MG in NS 500 ML IV SCH ×2 (03:45→15:38)
[2019-11-15] MEDS: SOLU-MEDROL IV SCH ×4 (03:47→20:00)
[2019-11-15 05:04] LABS: ALLEN TEST YES; BE 13.5 mmoll (-3.0-3.0); BLOOD TYPE ARTERIAL; HCO3-(ACT) 35.3 mmoll (20.0-26.0); METHB 1.2 % (0.0-1.5); O2(CT) 17.9 mL/dL (15.0-23.0); O2HB 91.1 % (95.0-99.0); PO2(98.6) 66 mmHg (60-100); SAMPLE BLOOD; SAO2 94.1 % (95.0-100.0); SRATE 20 BPM; TVOL 450 mL; pH(98.6) 7.34 (7.35-7.45)
[2019-11-15 05:06] LABS: MODALITY VENTILATOR; PCO2(98.6) 80 mmHg (35-45)
[2019-11-15] MEDS: PROTONIX IV SCH (06:16)
[2019-11-15 06:44] LABS: BASO# 0.02 X1000 (0.0-0.2); BASO% 0.1 % (0.0-0.8); HEMATOCRIT 33.7 % (42.0-52.0); LYMPH# 0.69 X1000 (1.2-3.4); LYMPH% 2.7 % (20.5-51.1); MCH 26.2 PG (27-31); MCHC 29.7 g/dL (33-37); MCV 88.2 FL (81-99); MONO# 0.92 X1000 (0.11-0.59); MONO% 3.6 % (1.7-9.3); MPV 11.5 FL (7.4-10.4); PLT 58 X1000 (130-400); RBC 3.82 XMIL (4.7-6.1); RDW 13.6 % (11.5-14.5); WBC 25.23 X1000 (4.8-10.8)
[2019-11-15 07:12] LABS: AGAP 6; BUN 28 mg/dL (8-22); CALCIUM 8.1 mg/dL (8.8-10.2); CHLORIDE 107 mmol/L (98-107); COSMO 304; CREATININE 0.3 mg/dL (0.7-1.2); ESTIMATED GFR > 60; GLUCOSE 108 mg/dL (70-104); POTASSIUM 4.6 mmol/L (3.5-5.1); SODIUM 150 mmol/L (136-145); TCO2 37 mmol/L (25-35)
--- NOTE | 2019-11-15 07:18 | Diag Imaging Result Doc PS360 ---
EXAM: CHEST-1 VIEW HISTORY: SOB TECHNIQUE: Single view COMPARISON: 11/14/2019 FINDINGS: No change in the endotracheal tube or nasogastric tube. Left-sided PICC line in good position. There are diffuse bilateral infiltrates. No cardiomegaly. Tiny pleural effusions. IMPRESSION: No interval improvement Electronically signed by Adelfo Roldan 11/15/2019 7:16 AM
[2019-11-15 08:04] LABS: BANDS 14 % (0-1); LYMPHS 2 % (21-51); MONO 4 % (1-9); SEGS 80 % (42-75)
[2019-11-15] MEDS: XOPENEX NEB INH PRN (08:16)
[2019-11-15] MEDS: MAXIPIME 2 GM/NS 2 GM/100 ML IVPB IV SCH ×2 (08:35→17:31)
[2019-11-15] MEDS: MIRALAX NG SCH ×2 (08:39→20:01)
[2019-11-15] MEDS: LIPITOR NG SCH (08:39)
[2019-11-15] MEDS: LACTULOSE NG SCH ×2 (08:42→22:03)
[2019-11-15] MEDS: DULCOLAX PR SCH ×2 (08:42→22:03)
[2019-11-15] MEDS: PERIDEX MT SCH ×2 (08:42→20:00)
[2019-11-15] MEDS: LOVENOX SUBQ SCH (09:06)
[2019-11-15] MEDS: MORPHINE IV PRN ×2 (09:24→17:37)
[2019-11-15 09:25] LABS: MAGNESIUM 2.3 mg/dL (1.5-2.7); PHOSPHORUS 2.9 mg/dL (2.7-4.5)
[2019-11-15] MEDS ORDERED: LASIX IV ONE (09:25)
--- NOTE | 2019-11-15 10:41 | PROGRESS NOTE ---
DATE: 11/15/2019 INTERVAL HISTORY: Mr. Jaime unfortunately did not have a bowel movement and his tube feeds were held for several hours yesterday. Otherwise, his vitals remain stable at around 90% FiO2. He continues to have low platelets and increasing pCO2. His sputum is growing Achromobacter, which is sensitive to cefepime. SUBJECTIVE: He is intubated and sedated. REVIEW OF SYSTEMS: Could not be obtained. VITAL SIGNS: Temperature of 97.9 degrees without fever, pulse 94, respiratory rate 21, blood pressure 122/71. He is saturating 90% on 100% FiO2 on mechanical ventilation. PHYSICAL EXAMINATION: He is occasionally over breathing. Oral cavity is moist. Air entry bilaterally equal. No wheeze or rhonchi. He has bilateral crackles. S1, S2 normal. No murmur or gallop. Abdomen is soft, nontender. No lower extremity edema. He has a right upper extremity area of chemical cellulitis affecting medial aspect of right forearm and arm which is dressed. His pupils are bilaterally equal reacting to light. He has endotracheal tube, urine catheter, NG tube. He is heavily sedated to allow proper synchronization with the ventilator and oxygenation, so he is not withdrawing to painful stimuli at the moment. Input and output, positive 1000 mL. LABS: WBC 95492, hemoglobin 10, platelets 58,000. His pH is 7.34, pCO2 of 80. He is on mechanical ventilation. His BUN is 28, creatinine 0.3. Microbiology, sputum culture is growing Achromobacter which is sensitive to cefepime. IMAGING: Chest x-ray this morning does not have any improvement. General surgical team has recommended silver foam dressing changes with antibiotics for his cellulitis. ASSESSMENT AND PLAN: 1. Acute hypoxic respiratory failure due to acute idiopathic pulmonary fibrosis exacerbation, status post intubation on November 08. Continue mechanical ventilation, sedation with propofol as per Pulmonary recommendation; pantoprazole for stress ulcer prophylaxis; chlorhexidine for ventilator associated pneumonia prophylaxis; enoxaparin for deep venous thrombosis prophylaxis and intravenous steroids. 2. Bilateral multifocal pneumonia due to Achromobacter. Continue intravenous cefepime. Considering his profound hypoxia, I plan to continue intravenous vancomycin. Continue inhaled bronchodilators for prior history of smoking. He had positive antinuclear antibody during this admission. 3. Right forearm and arm chemical granger with cellulitis due to vancomycin infiltration. Continue intravenous antibiotics. Topical wound care according to surgical team's recommendations. 4. Hypernatremia, now stable. I will continue free water flushes through NG tube. Appreciate Pulmonology recommendation for his hypercapnic acidosis, respiratory acidosis. 5. Subcutaneous emphysema with pneumomediastinum. Surgical team recommends watchful observation. 6. Others. His atrial fibrillation with rapid ventricular response episode has resolved; his bradycardia has resolved; thrombocytopenia is stable for which I will monitor platelet count; continue atorvastatin for transient ischemic attack; continue to hold aspirin considering his thrombocytopenia; continue NG tube feeding for nutrition. I will intensify his bowel regimen with Reglan, MiraLAX, lactulose and bisacodyl suppositories since he has not had any bowel movement and has not been tolerating tube feeds very well with high residuals. 7. Disposition. Thirty-five minutes of critical care time was spent taking care of this patient. Plan of care discussed with the nursing team in detail. He has a left arm PICC line which was placed yesterday. cc: Howard Schulte MD
[2019-11-15] MEDS: REGLAN IV SCH ×2 (11:14→17:32)
[2019-11-15] MEDS: OFIRMEV 1000 MG/ISOTONIC SOLN 1,000 MG/100 ML BOTTLE IV PRN ×2 (13:08→20:01)
--- NOTE | 2019-11-15 14:28 | PULMONOLOGY PROGRESS NOTE ---
DATE: 11/15/2019 SUBJECTIVE: Mr. Jaime continues intubated and sedated. OBJECTIVE: Vital Signs: Blood pressure is 121/69 with a heart rate of 91, respirations are 20, temperature is 97.9 degrees with O2 saturations 92%. Cardiovascular: Regular rate and rhythm. S1 and S2 are appreciated. No murmur. Pulmonary: Has crackles scattered throughout. Chest rises and falls symmetric with respiration. Gastrointestinal: Abdomen is soft, nondistended, with bowel sounds in all 4 quadrants. Extremities: No clubbing, cyanosis, or edema. Right upper extremity has a dressing that is dry and intact. Neurologic: He continues sedated. He does not withdraw to pain. Pupils are equal, react to light. He does have a gag reflex. LABS: WBC is 25.23 with hemoglobin 10, hematocrit 33.7, platelets of 58. Sodium 150, potassium 4.6. BUN 28, creatinine 0.3 with a glucose of 108. ABGs: A pH is 7.34 with pCO2 of 80, PO2 of 66, bicarbonate of 35.3. This is on assist control at a rate of 20 100%, tidal volume 450, and 8 of PEEP. X-RAYS: Chest x-ray reveals no interval improvement. ASSESSMENT: This is a 49-year-old gentleman with: 1. Acute respiratory failure with development of acute respiratory distress syndrome and hypercapnia, intubated 11/09/2019. 2. Pneumonia with Acinetobacter dentrificans for culture. 3. Acute exacerbation of pulmonary fibrosis in a patient with a family history of idiopathic pulmonary fibrosis. 4. Pneumomediastinum and subcutaneous emphysema, improving. General Surgery is on board. 5. Transient ischemic attack at presentation. 6. Atrial fibrillation with rapid ventricular response 11/02/2019. Rate is controlled. 7. Right upper extremity chemical granger with surrounding cellulitis. PLAN: 1. Continue full ventilatory support. 2. Continue sedation of Diprivan drip per protocol. 3. Continue cefepime and vancomycin. Of note Acinetobacter is susceptible to cefepime. 4. Continue steroids q. 6 hours. 5. Continue bronchodilators. 6. Continue his tube feedings. Dictated by DENISA Goodman for Aron Okeefe MD cc: DENISA Goodman MD
[2019-11-16] MEDS: MAXIPIME 2 GM/NS 2 GM/100 ML IVPB IV SCH ×3 (00:28→16:39)
[2019-11-16] MEDS: MORPHINE IV PRN ×3 (00:51→21:55)
[2019-11-16] MEDS ORDERED: MORPHINE IV ONE ×2 (01:05→04:21)
[2019-11-16] MEDS ORDERED: MORPHINE ONE (01:11)
[2019-11-16] MEDS: DIPRIVAN 1% 1,000 MG/100 ML BOTTLE IV SCH ×8 (02:11→21:54)
[2019-11-16] MEDS: XOPENEX NEB INH SCH ×4 (03:45→21:19)
[2019-11-16] MEDS: ATROVENT NEB INH SCH ×4 (03:45→21:19)
[2019-11-16] MEDS: VANCOMYCIN 2,000 MG in NS 500 ML IV SCH ×2 (03:45→16:39)
[2019-11-16] MEDS: SOLU-MEDROL IV SCH ×4 (04:35→21:54)
[2019-11-16] MEDS: REGLAN IV SCH (04:35)
[2019-11-16 05:45] LABS: ALLEN TEST YES; BE 13.4 mmoll (-3.0-3.0); BLOOD TYPE ARTERIAL; HCO3-(ACT) 35.2 mmoll (20.0-26.0); METHB 0.9 % (0.0-1.5); O2(CT) 14.5 mL/dL (15.0-23.0); PO2(98.6) 56 mmHg (60-100); SAMPLE BLOOD; SAO2 91.7 % (95.0-100.0); SRATE 2 BPM; THB 11.6 g/dL (11.5-17.4); TVOL 400 mL; pH(98.6) 7.35 (7.35-7.45)
[2019-11-16 05:46] LABS: PCO2(98.6) 76 mmHg (35-45)
[2019-11-16 05:47] LABS: MODALITY VENTILATOR; O2HB 88.9 % (95.0-99.0)
--- NOTE | 2019-11-16 07:42 | Diag Imaging Result Doc PS360 ---
EXAM: CHEST-1 VIEW - 11/16/2019 HISTORY: SOB TECHNIQUE: Portable chest one view COMPARISON: 11/15/2019 FINDINGS: Endotracheal tube, nasogastric tube, and central venous catheter remain in place. There are relatively diffuse bilateral infiltrates similar to prior. There is no substantial pleural effusion or pneumothorax identified. Heart size is stable. IMPRESSION: Relatively diffuse bilateral infiltrates similar to prior. Electronically signed by Augustine Diez 11/16/2019 7:39 AM
[2019-11-16] MEDS: SODIUM CHLORIDE 0.9% INJ SCH (08:15)
[2019-11-16] MEDS: PERIDEX MT SCH ×2 (08:15→21:54)
[2019-11-16] MEDS: PROTONIX IV SCH (08:15)
[2019-11-16] MEDS: LIPITOR NG SCH (08:21)
[2019-11-16] MEDS: LACTULOSE NG SCH ×2 (08:32→22:14)
[2019-11-16] MEDS: DULCOLAX PR SCH ×2 (08:32→22:14)
[2019-11-16] MEDS: MIRALAX NG SCH ×2 (08:33→22:15)
[2019-11-16] MEDS: LOVENOX SUBQ SCH (09:02)
--- NOTE | 2019-11-16 10:39 | PROGRESS NOTE ---
DATE: 11/16/2019 INTERVAL HISTORY: Mr. Jaime has started becoming more hypoxic with oxygen saturation in the 80s. The patient's family was kept informed overnight, and they had decided to make the patient DO NOT RESUSCITATE level 2. Later on in the morning time, they updated the nursing team that they did not want any chest compressions or any shock. However, they wanted to continue the current level of care, including intubation. SUBJECTIVE: Mr. Jaime is sedated and does not respond to painful or verbal stimuli at the moment. OBJECTIVE: Vital Signs: Temperature 99.7 degrees, pulse 112, respiratory rate 30, blood pressure 94/52, he is saturating 82% on mechanical ventilation. Lungs: He appears to have exaggerated thoracic movement with ventilator. He has diffuse rhonchi and crackles to bilateral lung dietz. Heart: S1, S2 normal. Tachycardic. No murmur or gallop. Abdomen: Soft. Active bowel sounds. Nontender. Extremities: He has chemical cellulitis affecting the right forearm and medial part of the right arm. Lines/Catheters: He has a urine catheter, endotracheal tube, NG tube, and left arm PICC line. Neurologic: He is not withdrawing to painful stimuli. LABORATORY DATA: No CBC today. ABG suggestive of pH of 7.3, pCO2 of 76, PO2 of 56 on 100% FiO2. MICROBIOLOGY: No new data in terms of sputum culture. ASSESSMENT AND PLAN: 1. Acute hypoxic respiratory failure due to acute idiopathic pulmonary fibrosis exacerbation, status post intubation on 11/09/2019. Continue mechanical ventilation, sedation with propofol as per Pulmonary recommendations; pantoprazole for stress ulcer prophylaxis; chlorhexidine for ventilator-associated pneumonia prophylaxis; enoxaparin for deep venous thrombosis prophylaxis; and intravenous steroids. 2. Bilateral multifocal pneumonia due to Achromobacter. Continue intravenous cefepime, intravenous vancomycin, inhaled bronchodilator. 3. Right forearm and arm cellulitis and chemical granger due to vancomycin infiltration. Continue intravenous antibiotics and topical wound care as per Surgical team's recommendation. 4. Subcutaneous emphysema with pneumomediastinum. Continue watchful observation as per Surgical team's recommendation. 5. Others. Continue to monitor his electrolytes; continue tube feeds with increased free water flushes for nutrition; his atrial fibrillation with rapid ventricular response and bradycardia episodes had resolved. I will monitor CBC for thrombocytopenia, and continue atorvastatin for transient ischemic attack on presentation. Continue Reglan, MiraLAX, lactulose, and bisacodyl for bowel regimen. 6. Disposition. Mr. Jaime's condition is extremely critical, and his risk of mortality in the near future, considering his decreasing oxygen saturation despite being on 100% ventilator, his suspected diagnosis of idiopathic pulmonary fibrosis puts him at risk for decreased survival. I will continue to keep the family in the loop. They have expressed to the nursing team and to me that they would not want any shock, chest compressions, or further escalation of care. TIME SPENT: 35 minutes of critical care time was spent. cc: Howard Schulte MD
[2019-11-16] MEDS: OFIRMEV 1000 MG/ISOTONIC SOLN 1,000 MG/100 ML BOTTLE IV PRN (13:40)
--- NOTE | 2019-11-16 15:48 | PROGRESS NOTE ---
DATE: 11/16/2019 ADDENDUM: I went to the bedside to talk with Mr. Jaime's family. His father, sister and 2 other relatives are at bedside. I updated them about Mr. Jaime's clinical course including sputum culture results, continuing antibiotics and unfortunately, decreasing oxygen saturation. I discussed with them about the fact that he has been on full ventilatory support, intravenous antibiotics, intravenous steroids and bowel regimen. I told them that we have been providing him nutrition to PEG tube as well. However I expressed my concern that considering his decreasing oxygen saturation which was 72% at the time of my evaluation, his prognosis was extremely poor and the chances of survival were less. At that stage, they expressed that they would not want any escalation of care including pressor medications, shock or cardiac compressions. They asked me several questions related to his idiopathic pulmonary fibrosis including the chronicity, the symptoms, the diagnosis, management, which I answered to best of my capacity. I also showed them Mr. Jaime's chest x-ray as well as CAT scan report. They understood it. For now will continue the current care without any escalation. They also expressed that they would also want him to be comfortable so I have increased the intravenous morphine frequency. I conveyed this plan to the patient's nurse. Additional 20 minutes of time has been spent. cc: MD DARNELL Mcfadden
--- NOTE | 2019-11-16 17:18 | PULMONOLOGY PROGRESS NOTE ---
DATE: 11/16/2019 Mr. Jaime continues intubated and sedated. OBJECTIVE: Vital Signs: Blood pressure is 96/49 with a heart rate of 112, respirations are 26 to 28, O2 saturation is 82 to 84% on PRVC rate of 20, FiO2 100%, tidal volume 400 and PEEP of 8. Cardiovascular: Regular rate and rhythm. He is tachycardic, S1 and S2 appreciated. Pulmonary: Breath sounds with diffuse crackles scattered throughout. Chest rises and falls symmetric with respiration. Respirations are per ventilator. Gastrointestinal: Abdomen soft, nondistended with bowel sounds in all 4 quadrants. Extremities: No clubbing, cyanosis or edema. Chemical cellulitis noted to the right forearm and medial right arm. Neurologic: Pupils are equal, round and react to light. He does have a gag reflex. He does not withdraw from painful stimuli. LABS: ABGs pH is 7.35 with pCO2 76, PO2 56 and a bicarb of 35.2. ASSESSMENT: This is a 49-year-old gentleman with 1. Acute respiratory failure with development of acute respiratory distress syndrome and hypercapnia intubated 11/09/2019, extubated 11/09/2019. 2. Pneumonia with [*]denitrificans for culture. 3. Acute exacerbation of pulmonary fibrosis in a patient with a family history of idiopathic pulmonary fibrosis. 4. Pneumomediastinum and subcu emphysema improving. General Surgery is on board. 5. Transient ischemic attack at presentation. 6. Atrial fibrillation with rapid ventricular response, rate is more controlled. 7. Chemical granger right upper extremity. PLAN: 1. Continue full ventilatory support. 2. Continue sedation of Diprivan per protocol. 3. Continue antibiotics of cefepime and vancomycin. Of note, [*] is susceptible to cefepime. 4. Continue steroids as ordered. 5. Continue bronchodilators. 6. Continuous tube feeds. 7. Code status was discussed with the patient's father, sister and [address] Schulte and the patient was made a DNR level 2 with specifics of no chest compressions, no ACLS drugs, no shocks, no pressors. The family wanted the patient to remain intubated and continue the care that he has now. We will follow their wishes. Dictated by DENISA Goodman for Aron Okeefe MD cc: DENISA Goodman MD
[2019-11-17] MEDS: DIPRIVAN 1% 1,000 MG/100 ML BOTTLE IV SCH ×4 (00:14→07:59)
[2019-11-17] MEDS: MAXIPIME 2 GM/NS 2 GM/100 ML IVPB IV SCH ×2 (00:16→07:56)
[2019-11-17] MEDS: SOLU-MEDROL IV SCH (04:00)
[2019-11-17] MEDS: VANCOMYCIN 2,000 MG in NS 500 ML IV SCH (04:30)
[2019-11-17 05:24] LABS: ALLEN TEST YES; BE 8.6 mmoll (-3.0-3.0); BLOOD TYPE ARTERIAL; HCO3-(ACT) 31.6 mmoll (20.0-26.0); METHB 0.7 % (0.0-1.5); O2(CT) 14.3 mL/dL (15.0-23.0); O2HB 96.8 % (95.0-99.0); PCO2(98.6) 30 mmHg (35-45); PO2(98.6) 170 mmHg (60-100); SAMPLE BLOOD; SRATE 20 BPM; THB 10.2 g/dL (11.5-17.4); TVOL 400 mL; pH(98.6) 7.61 (7.35-7.45)
[2019-11-17 05:25] LABS: MODALITY VENTILATOR
[2019-11-17] MEDS: ATROVENT NEB INH SCH (05:56)
[2019-11-17] MEDS: XOPENEX NEB INH SCH (05:56)
[2019-11-17 06:40] LABS: BASO# 0.01 X1000 (0.0-0.2); BASO% 0.1 % (0.0-0.8); HEMATOCRIT 34.1 % (42.0-52.0); HEMOGLOBIN 10.4 g/dL (14.0-18.0); IMM GRAN% 1.1 % (0.0-0.5); LYMPH# 0.27 X1000 (1.2-3.4); LYMPH% 1.5 % (20.5-51.1); MCH 27.4 PG (27-31); MCHC 30.5 g/dL (33-37); MCV 89.7 FL (81-99); MONO# 0.29 X1000 (0.11-0.59); MONO% 1.6 % (1.7-9.3); NEUT# 16.82 X1000 (1.4-6.5); NEUT% 95.7 % (42.2-75.2); PLT 21 X1000 (130-400); RDW 13.9 % (11.5-14.5); WBC 17.59 X1000 (4.8-10.8)
--- NOTE | 2019-11-17 06:57 | Diag Imaging Result Doc PS360 ---
EXAM: CHEST-1 VIEW 11/17/2019 HISTORY: SOB TECHNIQUE: AP portable at 0616 COMMENT: There is an endotracheal tube with its tip at the thoracic inlet and an NG tube which passes below the diaphragm into the stomach. Compared to 11/16/2019 there has been some slight improvement in the diffuse pulmonary opacities particularly with regard to the left lower lobe. IMPRESSION: Pulmonary fibrosis. Improved pulmonary edema or pneumonia. Electronically signed by Mauro Bashir 11/17/2019 6:55 AM
[2019-11-17 07:03] LABS: LYMPHS 3 % (21-51); MONO 1 % (1-9); SEGS 96 % (42-75)
[2019-11-17 07:22] LABS: AGAP 9; ALB/GLOB RATIO 0.4; ALBUMIN 1.5 g/dL (3.5-5.0); ALKALINE PHOSPHATASE 100 U/L (32-122); BUN 54 mg/dL (8-22); CALCIUM 8.1 mg/dL (8.8-10.2); CHLORIDE 103 mmol/L (98-107); COSMO 306; CREATININE 0.8 mg/dL (0.7-1.2); ESTIMATED GFR > 60; GLUCOSE 136 mg/dL (70-104); GPT 124 U/L (10-44); POTASSIUM 5.1 mmol/L (3.5-5.1); SODIUM 145 mmol/L (136-145); TCO2 33 mmol/L (25-35); TOTAL PROTEIN 5.6 g/dL (6.3-8.3)
[2019-11-17 07:31] LABS: GOT 104 U/L (10-34)
[2019-11-17] MEDS: PROTONIX IV SCH (07:52)
[2019-11-17] MEDS: SODIUM CHLORIDE 0.9% INJ SCH (07:53)
[2019-11-17] MEDS ORDERED: ATIVAN IV PRN (08:38)
--- NOTE | 2019-11-17 10:24 | PROGRESS NOTE ---
DATE: 11/17/2019 INTERVAL HISTORY: Mr. Jaime has started developing thrombocytopenia, worsening hypoxia, hypotension overnight. We had continued the ventilator, as well as antibiotics, along with steroids. SUBJECTIVE: He remains intubated. Family is at bedside. CURRENT VITALS: Temperature 97.2 degrees, pulse 92, respiratory rate 28, blood pressure 75/49. He is saturating 69% on mechanical ventilation. PHYSICAL EXAMINATION: General: He is overbreathing on the ventilator and appears in no distress though. Eyes: Pupils are bilaterally equal, reacting to light. Lungs: Air entry bilaterally equal. Bilateral rhonchi and crackles. Cardiovascular: S1, S2 normal. Tachycardic. No murmur or gallop. Abdomen: Soft, nontender. Extremities: He has mild edema of lower extremities. Tubes/lines/catheters: He has endotracheal tube, NG tube, urine catheter, left arm PICC line and right arm chemical cellulitis. He is not withdrawing to painful stimuli. LABS: WBC 17,000, hemoglobin 10.4, platelet 21. A pH 7.61, pCO2 30, PO2 170. BUN 54, creatinine 0.8. MICROBIOLOGY: No new data. IMAGING: Suggests pulmonary fibrosis. ASSESSMENT: 1. Acute hypoxic respiratory failure due to acute idiopathic pulmonary fibrosis exacerbation, status post intubation on November 08. 2. Bilateral multifocal pneumonia due to Acinetobacter. 3. Right arm chemical cellulitis due to vancomycin infiltration. 4. Subcutaneous emphysema with pneumomediastinum. PLAN: I had a detailed discussion about his worsening condition with family at bedside. Initially yesterday they had suggested they did not want any intravenous pressor support. Despite prolonged intubation and supportive care, Mr. Jaime did not show any signs of improvement. He continues to have worsening hypoxia and now is developing hypotension. I explained to the family about his course, and they decided to make him comfort measures only. I explained to them that in that case we would compassionately take the breathing tube out, keep him on simple oxygen. I explained to them that we would stop the antibiotics, steroids and other treatment, which unfortunately did not help him so far. We will keep him on pain medication and antianxiety medication to make him more comfortable. Family understood it. I will go ahead and start comfort measures only. I have communicated this plan to the nursing team and palliative care team. TIME SPENT: 35 minutes of time was spent in this entire process. cc: Howard Schulte MD
[2019-11-17] MEDS: MORPHINE IV PRN (11:05)
[2019-11-17 14:25] VITALS: BP 33/17
--- NOTE | 2019-11-18 08:08 | DISCHARGE SUMMARY ---
ADMISSION DATE: 10/27/2019 DISCHARGE DATE: 11/17/2019 TIME OF : 11:31 a.m. CAUSE OF : Idiopathic pulmonary fibrosis. HOSPITAL COURSE SUMMARY: Mr. Jaime was a 49-year-old, man, without prior medical history. However, with positive family history of mother having idiopathic pulmonary fibrosis. Came in initially on 10/28/2019 with chief complaints of slurred speech, right upper extremity weakness. When he presented to the emergency room, he was found to have low oxygen saturation, and as part of the workup, chest x-ray was performed, which had suggested pulmonary and pleural fibrosis. The patient's transient ischemic attack workup came out essentially unremarkable, and he was started on aspirin and statin, and workup regarding his hypoxia was begun. He was initially treated with intravenous antibiotics, and chest CT was performed, which had detected advanced pulmonary fibrosis, significant interstitial infiltrate throughout the lung, indicating inflammatory interstitial lung disease or viral infection. Considering his positive family history, a presumptive diagnosis of acute exacerbation of idiopathic interstitial fibrosis was made, and he was started on broad-spectrum antibiotics and high-dose intravenous steroids. Unfortunately, Mr. Jaime's condition did not improve, and he had gradually progressive oxygen requirement. He was later on transferred to ICU and was intubated. He remained intubated between 11/09/2019 and 11/17/2019. However, his oxygen saturation kept on dropping despite being on 100% FiO2, so family had decided to make him comfort measures only. He was compassionately extubated on 11/17/2019, and briefly he . Family was present at the bedside. CAUSE OF : Idiopathic pulmonary fibrosis with exacerbation. cc: Howard Schulte MD
== END 2019-11-17 11:31 | disposition expired | DRG 207 ==
LOC: SUPCPDRO → ED 19:34 → SUATTDRO 19:35 → 3N 19:35 → 4N 23:07 → 3N 10-29 17:56 → 2N 11-02 11:17 → ICU 11-04 15:37
PROVIDERS: ATTEND Internal Medicine